=== PATIENT | male | born 1965 | race Caucasian/White ===

== ENCOUNTER 2025-01-16 05:49 | Inpatient (IN) | payer MEDICAID ==
[~2025-01-16] VITALS: Ht 170.2 cm; Wt 77.3 kg
[2025-01-16 06:00] VITALS: BP 127/83
[2025-01-16 06:32] LABS: Basophils # (auto) 0.1 10 ^3/uL (0-0.2); Basophils % (auto) 0.8 % (0.0-2.0); Eosinophils # (auto) 0.1 10 ^3/uL (0-0.8); Eosinophils % (auto) 1.7 % (0.0-7.0); Hematocrit 44.9 % (41.0-53.0); Hemoglobin 14.5 g/dL (13.5-17.5); Lymphocytes # (auto) 1.7 10 ^3/uL (0.4-5.4); Mean Corpuscular Hemoglobin 29.9 pg (28.0-32.0); Mean Corpuscular Hgb Conc. 32.4 g/dL (32.0-36.0); Mean Corpuscular Volume 92.3 fL (80.0-100.0); Monocytes # (auto) 0.5 10 ^3/uL (0-1.3); Monocytes % (auto) 5.9 % (0.0-12.0); Neutrophils # (auto) 5.9 10 ^3/uL (1.6-8.6); Neutrophils % (auto) 70.6 % (37.0-80.0); Nucleated Red Blood Cells % 0.1 %; Platelet Count (auto) 296 10^3/uL (140-450); Red Blood Cells 4.86 10^6/uL (4.5-5.90); Red Cell Distribution Width 15.7 % (11.8-14.3); White Blood Cell 8.3 10^3/uL (4.4-10.8)
--- NOTE | 2025-01-16 06:47 | ECG ---
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1965 Requested By: EMERGENCY EMERGENCY Order Number: [id number] Reading MD: Yasmany Ellington Measurements Intervals [place] Rate: 99 P: 83 PA: 165 QRS: -45 QRSD: 114 T: 74 QT: 381 QTc: 489 Interpretive Statements Sinus rhythm Biatrial enlargement Left anterior fascicular block Abnormal R-wave progression, late transition Left ventricular hypertrophy Borderline T abnormalities, lateral leads Anterior ST elevation, probably due to LVH Borderline prolonged QT interval Baseline wander in lead(s) V2 Electronically Signed On 01-18-2025 22:05:45 PST by Yasmany Ellington Please click the below link to view image of tracing.
[2025-01-16 06:53] LABS: Chloride 101 mmol/L (98-107); Potassium 3.8 mmol/L (3.5-5.1); Sodium 139 mmol/L (136-145)
[2025-01-16 06:54] VITALS: PULSE 104
[2025-01-16 06:54] LABS: Anion Gap 10 (5-15); Carbon Dioxide 28 mmol/L (20-31)
--- NOTE | 2025-01-16 06:55 | ECG ---
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
[2025-01-16 06:59] LABS: BUN/Creatinine Ratio 14.9 (10.0-20.0)
[2025-01-16 07:00] LABS: Blood Urea Nitrogen 28 mg/dL (9-23); Calcium 10.8 mg/dL (8.7-10.4); Glucose 130 mg/dL (74-106)
[2025-01-16] MEDS ORDERED: FUROSEMIDE 40 MG/4 ML VIAL IV ONE ×2 (07:15→07:45)
[2025-01-16] MEDS ORDERED: methylPREDNISolone SOD SUCC 125 MG/2 ML VL IV ONE (07:15)
[2025-01-16] MEDS ORDERED: ASPirin 325 MG TAB PO ONE (07:15)
--- NOTE | 2025-01-16 07:16 | ED.PDOC ---
SOB-HPI HPI Comments 59 year old male presents to the ED with chief complaint of SOB. Patient reports that he has been experiencing intermittent SOB for the past week, feeling like he is gasping for air at times before subsiding. Patient relays that he had a pacemaker placed about 8 months ago, but is not sure if it is working correctly now. Patient denies any chest pain, cough, dizziness, headache, fever, chills, or N/V/D. Chief Complaint: Shortness of Breath Time Seen by MD: 07:12 Primary Care Provider: DENIES Reviewed notes: Nurses Notes, Medications, Allergies Information Source: Patient Mode of Arrival: Ambulatory Severity: Moderate Timing: Weeks Duration: Since onset, Intermittent Context: At Rest PE Risk Factors: None History of: None Prehospital treatment: None Modifying Factors: Nothing Associated Signs and Symptoms: None Past Medical History Past Medical History (Other): Prediabetic Surgical History: Pacemaker Family History Family History: Reviewed,noncontributory to illness Social History Smoker: Quit Greater Than 1 Year, Cigarettes Alcohol: Denies ETOH Use Drugs: Denies Drug Use Lives In: Home Constitutional: denies: chills, diaphoresis, fatigue, fever, malaise, sweats, weakness, others EENTM: denies: blurred vision, double vision, ear bleeding, ear discharge, ear drainage, ear pain, ear ringing, eye pain, eye redness, hearing loss, mouth pain, mouth swelling, nasal discharge, nose bleeding, nose congestion, nose pain, photophobia, tearing, throat pain, throat swelling, voice changes, others Respiratory: reports: shortness of breath; denies: cough, hemoptysis, orthopnea, SOB at rest, SOB with excertion, stridor, wheezing, others Cardiovascular: denies: chest pain, dizzy spells, diaphoresis, Dyspnea on exertion, edema, irregular heart beat, left arm pain, lightheadedness, palpitations, PND, syncope, others Gastrointestinal: denies: abdomen distended, abdominal pain, blood streaked bowels, constipated, diarrhea, dysphagia, difficulty swallowing, hematemesis, melena, nausea, poor appetite, poor fluid intake, rectal bleeding, rectal pain, vomiting, others Genitourinary: denies: burning, dysuria, flank pain, frequency, hematuria, incontinence, penile discharge, penile sore, pain, testicle pain, testicle swel ling, urgency, others Neurological: denies: dizziness, fainting, headache, left sided numbness, left sided weakness, numbness, paresthesia, pre-existing deficit, right sided numbness, right sided weakness, seizure, speech problems, tingling, tremors, weakness, others Musculoskeletal: denies: back pain, gout, joint pain, joint swelling, muscle pain, muscle stiffness, neck pain, others Integumetry: denies: bruises, change in color, change in hair/nails, dryness, laceration, lesions, lumps, rash, wounds, others Allergic/Immunocompromised: denies: Difficulty Healing, Frequent Infections, Hives, Itching, others Hematologic/Lymphatic: denies: anemia, blood clots, easy bleeding, easy bruising, swollen glands, others Endocrine: denies: excessive hunger, excessive sweating, excessive thirst, excessive urination, flushing, intolerance to cold, intolerance to heat, unexplained weight gain, unexplained weight loss, others Psychiatric: denies: anxiety, bipolar disorder, depression, hopeless, panic disorder, schizophrenia, sleepless, suicidal, others All Other Systems: Reviewed and Negative Physical Exam General Appearance: Moderate Distress, Normal HEENT: Normal ENT Inspection, PERRL/EOMI Neck: Full Range of Motion, Non-Tender, Normal, Normal Inspection Respiratory: Chest Non-Tender, No Accessory Muscle Use, No Respiratory Distress, Other (Coarse breath sounds) Cardiovascular: No Edema, No JVD, No Murmur, No Gallop, Normal Peripheral Pulses, Regular Rate/Rhythm Breast Exam: Deferred Gastrointestinal: No Organomegaly, Non Tender, No Pulsatile Mass, Normal Bowel Sounds, Soft Genitalia: Deferred Pelvic: Deferred Rectal: Deferred Extremities: No calf tenderness, Normal capillary refill, Normal inspection, Normal range of motion, Non-tender, No pedal edema Musculoskeletal : Apperance: Normal Neurologic: Alert, 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 Was a procedure done?: No Differential Dx Differential Diagnosis: Anxiety, Asthma, Bronchitis, CHF, COPD X-Ray, Labs, Meds, VS Vital Signs Date Time Temp Pulse Resp B/P (MAP) Pulse Ox O2 Delivery O2 Flow Rate FiO2 01/16/25 07:24 94 Room Air* 0 21 01/16/25 07:24 18 94 Room Air* 0 21 01/16/25 06:54 104 01/16/25 06:00 100 Room Air* 0 21 01/16/25 06:00 97.7 102 16 127/83 (98) 100 01/16/25 06:00 99 Lab Test 01/16/25 06:50 01/16/25 06:06 Range/Units Troponin I High Sensitivity 63 *H 66 *H </=54 ng/L White Blood Count 8.3 4.4-10.8 10^3/uL Red Blood Count 4.86 4.5-5.90 10^6/uL Hemoglobin 14.5 13.5-17.5 g/dL Hematocrit 44.9 41.0-53.0 % Mean Corpuscular Volume 92.3 80.0-100.0 fL Mean Corpuscular Hemoglobin 29.9 28.0-32.0 pg Mean Corpuscular Hemoglobin Concent 32.4 32.0-36.0 g/dL Red Cell Distribution Width 15.7 H 11.8-14.3 % Platelet Count 296 140-450 10^3/uL Mean Platelet Volume 9.5 6.9-10.8 fL Neutrophils (%) (Auto) 70.6 37.0-80.0 % Lymphocytes (%) (Auto) 21.0 10.0-50.0 % Monocytes (%) (Auto) 5.9 0.0-12.0 % Eosinophils (%) (Auto) 1.7 0.0-7.0 % Basophils (%) (Auto) 0.8 0.0-2.0 % Neutrophils # (Auto) 5.9 1.6-8.6 10 ^3/uL Lymphocytes # (Auto) 1.7 0.4-5.4 10 ^3/uL Monocytes # (Auto) 0.5 0-1.3 10 ^3/uL Eosinophils # (Auto) 0.1 0-0.8 10 ^3/uL Basophils # (Auto) 0.1 0-0.2 10 ^3/uL Nucleated Red Blood Cells 0.1 % Sodium Level 139 136-145 mmol/L Potassium Level 3.8 3.5-5.1 mmol/L Chloride Level 101 98-107 mmol/L Carbon Dioxide Level 28 20-31 mmol/L Anion Gap 10 5-15 Blood Urea Nitrogen 28 H 9-23 mg/dL Creatinine 1.88 H 0.700-1.30 mg/dL Glomerular Filtration Rate Calc 41 >90 mL/min BUN/Creatinine Ratio 14.9 10.0-20.0 Serum Glucose 130 H 74-106 mg/dL Calcium Level 10.8 H 8.7-10.4 mg/dL B-Type Natriuretic Peptide 2946.49 0-100 pg/mL Current Medications Medications (Trade) Dose Ordered Sig/Silva Route Start Time Stop Time Status Last Admin Albuterol (Ventolin Medneb) 5 mg ONCE ONCE NEB 01/16/25 07:15 01/16/25 07:16 DC 01/16/25 07:24 Ipratropium [place] (Atrovent Medneb) 0.5 mg ONCE ONCE NEB 01/16/25 07:15 01/16/25 07:16 DC 01/16/25 07:24 Patient alert. Complaining of shortness a breath. Used to be heavy smoker. Saturation appropriate. EKG reviewed does show increased heart rate. Was given breathing treatment. BNP elevated. Was given Lasix. Kidney function elevated. Possible dehydration. Explained to the patient. Continue cardiac monitoring. Chest XR: FINDINGS: Lines and Tubes: Cardiac pacemaker projects over the left chest wall. Lungs: No focal consolidation. Pleura: No effusion. No pneumothorax. Cardiomediastinal contours: Unremarkable Bones: No acute osseous abnormality. IMPRESSION: No acute cardiopulmonary disease. Images Reviewed?: Images reviewed and evaluated by me Time of 1ST Reevaluation: 08:12 Reevaluation 1ST: Unchanged Patient Education/Counseling: Diagnosis, Treatment Family Education/Counseling: No Family Present Additional Information I reviewed the following notes from patient's past medical encounters: None The following tests were ordered, and results were reviewed by me: CBC, BMP, BNP, Troponin, EKG, CXR I reviewed and agreed with the following test results read by other providers: CXR Additional Information was gathered from interviewing the following independent historians: None I discussed treatment and results with medical personnel. Departure 1 Departure Time of Disposition: 07:39 Impression: Primary Impression: Diastolic heart failure Qualified Codes: I50.33 - Acute on chronic diastolic (congestive) heart failure Disposition: ADMITTED INPATIENT Admit to: Med Surg Condition: Guarded e-Prescriptions No Active Prescriptions or Reported Meds Critical Care Note Critical Care Time?: No Stability Stability form required: No Heart Score Heart Score: Heart Score Response (Comments) Value History Slightly Suspicious 0 EKG Normal 0 Age 45-64 1 Risk Factors 1 or 2 risk factors 1 Troponin Normal limit 0 Total 2 I personally scribed for LISA ADHIKARI MD ([email or web address]) on 01/16/25 at 07:16. Electronically submitted by Guy New ([email or web address]). I personally scribed for LISA ADHIKARI MD ([email or web address]) on 01/16/25 at 08:19. Electronically submitted by Guy New ([email or web address]). LISA ADHIKARI MD Jan 16, 2025 07:16
[2025-01-16 07:24] VITALS: RESP 18; O2SAT 94
[2025-01-16] MEDS: ALBUTEROL SULF 2.5 MG/0.5ML(0.5%) NEB SOLN NEB ONE (07:24)
[2025-01-16] MEDS: IPRATROPIUM BROM 0.5 MG/2.5ML INH SOL NEB ONE (07:24)
[2025-01-16] MEDS ORDERED: SODIUM CHLORIDE 0.9% 500 ML IV ONE (07:45)
--- NOTE | 2025-01-16 08:16 | DVH ---
EXAM: XY CHEST PORTABLE Indication: sob Technique: Single frontal view of the chest was obtained Comparison: None FINDINGS: Lines and Tubes: Cardiac pacemaker projects over the left chest wall. Lungs: No focal consolidation. Pleura: No effusion. No pneumothorax. Cardiomediastinal contours: Unremarkable Bones: No acute osseous abnormality. IMPRESSION: No acute cardiopulmonary disease.
[2025-01-16] MEDS ORDERED: DAPA1TAB4 PO (10:52)
[2025-01-16] MEDS ORDERED: ASPI1CHW5 PO (10:52)
[2025-01-16] MEDS ORDERED: CARV6.2551 PO (10:52)
[2025-01-16] MEDS ORDERED: FURO20TA4 PO (10:52)
[2025-01-16] MEDS ORDERED: DOCUSATE SOD 100 MG CAP PO PRN (11:00)
[2025-01-16] MEDS ORDERED: ACETAMINOPHEN 325 MG TAB PO PRN (11:00)
[2025-01-16] MEDS ORDERED: MORPHINE SULFATE INJ 2 MG/ml SYRG IV PRN (11:00)
[2025-01-16] MEDS ORDERED: ONDANSETRON HCL 4 MG/2 ML VIAL IV PRN (11:00)
[2025-01-16] MEDS ORDERED: NITROGLYCERIN 0.4 MG SL TAB SL PRN (11:00)
[2025-01-16] MEDS ORDERED: HYDROcodone-ACET 5/325MG TAB PO PRN (11:00)
--- NOTE | 2025-01-16 11:11 | DVHHP2 ---
History of Present Illness Reason for Visit: Shortness of breath History of Present Illness Gordon Mancia is a 59-year-old male with past medical history of CHF, chronic renal insufficiency, and illicit drug use, who comes to the ER today for shortness of breath. Patient states he had his pacemaker placed May of 2023, and that everything was better after that for about the first year. Then he states he started having problems with swelling of his lower extremities, and now shortness of breath more frequently. He states he was started on a diuretic, and it worked at first, then they changed the dose, and it was working better, but the last couple of weeks he hasn't noticed it working very well. Patient states he quite smoking tobacco about 2 years ago, but that he still smokes marijuana and uses methamphetamines. Cardiovascular: CHF Renal/: Chronic renal insuff Past Surgical History: None Family History: None Smoke: Quit (2 years ago) ALCOHOL: rare Drugs: Marijuana, Other (methamphetamines) Lives: with Family Domestic Violence: Neg Review of Systems Constitutional: No: Fever, Chills, Sweats, Weakness, Malaise, Other Eyes: No: Pain, Vision change, Conjunctivae inflammation, Eyelid inflammation, Other, Redness ENT: No: Ear pain, Ear discharge, Nose pain, Nose discharge, Nose congestion, Mouth pain, Mouth swelling, Throat pain, Throat swelling, Other Respiratory: Shortness of breath, SOB with excertion, Wheezing; No: Cough, Dry, Hemoptysis, Pleuritic Pain, Sputum, Wheezing, Other Cardiovascular: No: Chest Pain, Palpitations, Orthopnea, Paroxysmal Noc. Dyspnea, Edema, Lt Headedness, Other Gastrointestinal: No: Nausea, Vomiting, Abdominal Pain, Diarrhea, Constipation, Melena, Hematochezia, Other Genitourinary: No Dysuria, No Frequency, No Incontinence, No Hematuria, No Retention, No Other Musculoskeletal: No: other, neck pain, shoulder pain, arm pain, back pain, hand pain, leg pain, foot pain Skin: No: Rash, Lesions, Jaundice, Bruising, Other Neurological: No: Weakness, Numbness, Incoordination, Change in speech, Confusion, Seizures, Other Allergies: Coded Allergies: NO KNOWN ALLERGIES (Unverified , 06/15/15) Medications Current Medications Medications Dose Ordered Sig/Silva Route Start Time Stop Time Status Last Admin Dose Admin Sodium Chloride 10 ml Q8HR IV 01/16/25 14:00 UNV Acetaminophen/ Hydrocodone Bitart 1 tab Q4HP PRN PO 01/16/25 11:00 UNV Ondansetron HCl 4 mg Q4HP PRN IV 01/16/25 11:00 UNV Docusate Sodium 100 mg BIDPRN PRN PO 01/16/25 11:00 UNV Acetaminophen 650 mg Q6HP PRN PO 01/16/25 11:00 UNV Nitroglycerin 0.4 mg Q5MINP PRN SL 01/16/25 11:00 UNV Morphine Sulfate 2 mg Q30M PRN IV 01/16/25 11:00 UNV Furosemide 20 mg BIDD IV 01/16/25 18:00 UNV Patient Own Medication 1 tab DAILY PO 01/17/25 10:00 UNV Patient Own Medication 1 tab BID PO 01/16/25 22:00 UNV Patient Own Medication 1 tab DAILY PO 01/17/25 10:00 UNV Exam Vital Signs Vital Signs Date Time Temp Pulse Resp B/P (MAP) Pulse Ox O2 Delivery O2 Flow Rate FiO2 01/16/25 07:24 94 Room Air* 0 21 01/16/25 07:24 18 01/16/25 06:54 104 01/16/25 06:00 97.7 127/83 (98) General Appearance: Alert, Oriented X3, Cooperative, mild distress HEENT: Atraumatic, PERRLA Respiratory: Clear to auscultation, Normal air movement Cardiovascular: Regular rate, Normal S1, Normal S2, No murmurs Abdominal: Normal bowel sounds, Soft, No tenderness, No hepatospenomegaly Extremities: No clubbing, No cyanosis, Normal pulses, Other (Bilateral LE edema) Skin: No rashes, No breakdown, No significant lesion Neuro: Normal gait, Normal speech, Strength at 5/5 X4 ext Psych/Mental Status: Mental status NL, Mood NL Labs/Xrays Labs Test 01/16/25 09:01 01/16/25 06:06 Range/Units Troponin I High Sensitivity 53 </=54 ng/L White Blood Count 8.3 4.4-10.8 10^3/uL Red Blood Count 4.86 4.5-5.90 10^6/uL Hemoglobin 14.5 13.5-17.5 g/dL Hematocrit 44.9 41.0-53.0 % Mean Corpuscular Volume 92.3 80.0-100.0 fL Mean Corpuscular Hemoglobin 29.9 28.0-32.0 pg Mean Corpuscular Hemoglobin Concent 32.4 32.0-36.0 g/dL Red Cell Distribution Width 15.7 H 11.8-14.3 % Platelet Count 296 140-450 10^3/uL Mean Platelet Volume 9.5 6.9-10.8 fL Neutrophils (%) (Auto) 70.6 37.0-80.0 % Lymphocytes (%) (Auto) 21.0 10.0-50.0 % Monocytes (%) (Auto) 5.9 0.0-12.0 % Eosinophils (%) (Auto) 1.7 0.0-7.0 % Basophils (%) (Auto) 0.8 0.0-2.0 % Neutrophils # (Auto) 5.9 1.6-8.6 10 ^3/uL Lymphocytes # (Auto) 1.7 0.4-5.4 10 ^3/uL Monocytes # (Auto) 0.5 0-1.3 10 ^3/uL Eosinophils # (Auto) 0.1 0-0.8 10 ^3/uL Basophils # (Auto) 0.1 0-0.2 10 ^3/uL Nucleated Red Blood Cells 0.1 % Sodium Level 139 136-145 mmol/L Potassium Level 3.8 3.5-5.1 mmol/L Chloride Level 101 98-107 mmol/L Carbon Dioxide Level 28 20-31 mmol/L Anion Gap 10 5-15 Blood Urea Nitrogen 28 H 9-23 mg/dL Creatinine 1.88 H 0.700-1.30 mg/dL Glomerular Filtration Rate Calc 41 >90 mL/min BUN/Creatinine Ratio 14.9 10.0-20.0 Serum Glucose 130 H 74-106 mg/dL Calcium Level 10.8 H 8.7-10.4 mg/dL B-Type Natriuretic Peptide 2946.49 0-100 pg/mL EXAM: XY CHEST PORTABLE FINDINGS: Lines and Tubes: Cardiac pacemaker projects over the left chest wall. Lungs: No focal consolidation. Pleura: No effusion. No pneumothorax. Cardiomediastinal contours: Unremarkable Bones: No acute osseous abnormality. IMPRESSION: No acute cardiopulmonary disease. 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 Procedure Category Date Status Time Admit ADMIT 01/16/25 Transmitted 10:48 Code Status CODE 01/16/25 Transmitted 10:48 Sodium Chloride Lock PHA 01/16/25 Logged (Saline Lock Ns) 14:00 Hydrocodone-Acet PHA 01/16/25 Logged 5/325mg Tab ([place] 11:00 Ondansetron Hcl PHA 01/16/25 Logged (Zofran) 11:00 Docusate Sodium PHA 01/16/25 Logged Capsule (Colace 11:00 Complete Blood Count LAB 01/17/25 Verified 04:00 Comprehensive LAB 01/17/25 Verified Metabolic Panel 04:00 Cardiac DIET 01/16/25 Transmitted Diet-2gna,Lofat,Lochol Lunch Condition: Serious LEO 01/16/25 In Process 10:48 Acetaminophen Tablet PHA 01/16/25 Logged (Tylenol Tablet) 11:00 Nitroglycerin PHA 01/16/25 Logged Sublingual (Ntrostat 11:00 Morphine Sulfate PHA 01/16/25 Logged Injection 11:00 Stat Ekg For Chest LEO 01/16/25 In Process Pain 10:48 Notify Md Of Changes LEO 01/16/25 In Process From Base 10:48 It Generalist For [facility] 01/16/25 In Process 24 Hours 10:48 Emergency Dysrhythmia LEO 01/16/25 In Process Protocol 10:48 Rhythm Strips Once LEO 01/16/25 In Process Every Shift 10:48 Oxygen By Nasal RT 01/16/25 Transmitted Cannula 10:48 * Cardiology Consult CONS 01/16/25 Transmitted 10:48 Furosemide Injection PHA 01/16/25 Logged (Lasix Injection) 18:00 Potassium LAB 01/16/25 Logged 16:00 Magnesium LAB 01/16/25 Logged 16:00 (Nf) Aspirin PHA 01/17/25 Logged (Chewable Aspirin) 10:00 (Nf) Carvedilol PHA 01/16/25 Logged 22:00 (Nf) Dapagliflozin PHA 01/17/25 Logged Propanediol (Farxiga) 10:00 Date of Service: Jan 16, 2025 Billing Provider: YURI VAQSUEZ Common Visit Codes: [id number] INP/OBS CARE (MOD) YURI VASQUEZ Jan 16, 2025 11:11
[2025-01-16] MEDS ORDERED: SODIUM CHLOR 0.9% PF (SALINE LOCK) 10ML VIAL/SYR IV SCH (14:00)
[2025-01-16] MEDS ORDERED: FUROSEMIDE 20 MG/2 ML VIAL IV SCH (18:00)
[2025-01-16] MEDS ORDERED: CARVEDILOL 3.125 MG TAB PO SCH (18:00)
--- NOTE | 2025-01-16 21:24 | DVHINCON2 ---
Date of service: Jan 16, 2025 Referring Physician Jovanni Reason for Consultation Diastolic heart failure History of Present Illness This is a 59 year old male with a PMH of CHF, chronic renal insufficiency, and illicit drug use who presented to the ED with complaints of SOB. Patient reports that he has been experiencing intermittent SOB for the past week, feeling like he is gasping for air at times before subsiding. Patient states he had his pacemaker placed May of 2023, and that everything was better after that for about the first year. Then he states he started having problems with swelling of his lower extremities, and now shortness of breath more frequently. He states he was started on a diuretic, and it worked at first, then they changed the dose, and it was working better, but the last couple of weeks he hasn't noticed it working very well. Patient states he quite smoking tobacco about 2 years ago, but that he still smokes marijuana and uses methamphetamines. Chest x-ray shows NAD. Troponin 66 > 63 > 53.BUN 28, Autism Teacher 1.88,BNP 2946.49. Patient was admitted to the hospital. I am asked to consult on this patient. Family History: Patient reports no known family medical history. Allergies: Coded Allergies: NO KNOWN ALLERGIES (Unverified , 06/15/15) Home Meds Reported Medications Furosemide (Furosemide) 20 Mg Tab, 1 TAB PO DAILY 01/16/25 Dapagliflozin Propanediol (Farxiga) 10 Mg Tab, 1 TAB PO DAILY 01/16/25 Aspirin (Chewable Aspirin) 81 Mg Chw, 1 TAB PO DAILY 01/16/25 Carvedilol (Carvedilol) 6.25 Mg Tab, 1 TAB PO BID 01/16/25 Current Medications Current Medications Medications (Trade) Dose Ordered Sig/Silva Route PRN Reason Start Time Stop Time Status Last Admin Sodium Chloride (Saline Lock Ns) 10 ml Q8HR IV 01/16/25 14:00 Acetaminophen/ Hydrocodone Bitart ([place] 5/325MG Tab) 1 tab Q4HP PRN PO MODERATE PAIN (4-6 PAIN SCALE) 01/16/25 11:00 Ondansetron HCl (Zofran) 4 mg Q4HP PRN IV NAUSEA / VOMITING 01/16/25 11:00 Docusate Sodium (Colace Capsule) 100 mg BIDPRN PRN PO FOR CONSTIPATION 01/16/25 11:00 Acetaminophen (Tylenol Tablet) 650 mg Q6HP PRN PO PAIN SCALE 1-3 OR TEMP>100.4 01/16/25 11:00 Nitroglycerin (Ntrostat Sublingual) 0.4 mg Q5MINP PRN SL FOR CHEST PAIN 01/16/25 11:00 Morphine Sulfate 2 mg Q30M PRN IV FOR CHEST PAIN 01/16/25 11:00 Furosemide (Lasix Injection) 20 mg BIDD IV 01/16/25 18:00 Patient Own Medication 1 tab DAILY PO 01/17/25 10:00 UNV Patient Own Medication 1 tab BID PO 01/16/25 22:00 UNV Patient Own Medication 1 tab DAILY PO 01/17/25 10:00 Aspirin 81 mg DAILY PO 01/17/25 10:00 Carvedilol (Coreg Tablet) 6.25 mg BIDWM PO 01/16/25 18:00 Review of Systems Constitutional: No: Fever, Chills, Sweats, Weakness, Malaise, Other Eyes: No: Pain, Vision change, Conjunctivae inflammation, Eyelid inflammation, Other, Redness ENT: No: Ear pain, Ear discharge, Nose pain, Nose discharge, Nose congestion, Mouth pain, Mouth swelling, Throat pain, Throat swelling, Other Respiratory: Shortness of breath, SOB with excertion, Wheezing; No: Cough, Dry, Hemoptysis, Pleuritic Pain, Sputum, Wheezing, Other Cardiovascular: No: Chest Pain, Palpitations, Orthopnea, Paroxysmal Noc. Dyspnea, Edema, Lt Headedness, Other Gastrointestinal: No: Nausea, Vomiting, Abdominal Pain, Diarrhea, Constipation, Melena, Hematochezia, Other Genitourinary: No Dysuria, No Frequency, No Incontinence, No Hematuria, No Retention, No Other Musculoskeletal: No: other, neck pain, shoulder pain, arm pain, back pain, hand pain, leg pain, foot pain Skin: No: Rash, Lesions, Jaundice, Bruising, Other Neurological: No: Weakness, Numbness, Incoordination, Change in speech, Confusion, Seizures, Other Vital Signs Vital Signs Date Time Temp Pulse Resp B/P (MAP) Pulse Ox O2 Delivery O2 Flow Rate FiO2 01/16/25 07:24 94 Room Air* 0 21 01/16/25 07:24 18 01/16/25 06:54 104 01/16/25 06:00 97.7 127/83 (98) Physical Exam GENERAL: Awake, alert, oriented. LUNGS: Clear. CARDIOVASCULAR: Heart sounds are good. ABDOMEN: Soft. EXT: BLE edema. Labs/Diagnostic Data Labs Test 01/16/25 09:01 01/16/25 06:06 Range/Units Troponin I High Sensitivity 53 </=54 ng/L White Blood Count 8.3 4.4-10.8 10^3/uL Red Blood Count 4.86 4.5-5.90 10^6/uL Hemoglobin 14.5 13.5-17.5 g/dL Hematocrit 44.9 41.0-53.0 % Mean Corpuscular Volume 92.3 80.0-100.0 fL Mean Corpuscular Hemoglobin 29.9 28.0-32.0 pg Mean Corpuscular Hemoglobin Concent 32.4 32.0-36.0 g/dL Red Cell Distribution Width 15.7 H 11.8-14.3 % Platelet Count 296 140-450 10^3/uL Mean Platelet Volume 9.5 6.9-10.8 fL Neutrophils (%) (Auto) 70.6 37.0-80.0 % Lymphocytes (%) (Auto) 21.0 10.0-50.0 % Monocytes (%) (Auto) 5.9 0.0-12.0 % Eosinophils (%) (Auto) 1.7 0.0-7.0 % Basophils (%) (Auto) 0.8 0.0-2.0 % Neutrophils # (Auto) 5.9 1.6-8.6 10 ^3/uL Lymphocytes # (Auto) 1.7 0.4-5.4 10 ^3/uL Monocytes # (Auto) 0.5 0-1.3 10 ^3/uL Eosinophils # (Auto) 0.1 0-0.8 10 ^3/uL Basophils # (Auto) 0.1 0-0.2 10 ^3/uL Nucleated Red Blood Cells 0.1 % Sodium Level 139 136-145 mmol/L Potassium Level 3.8 3.5-5.1 mmol/L Chloride Level 101 98-107 mmol/L Carbon Dioxide Level 28 20-31 mmol/L Anion Gap 10 5-15 Blood Urea Nitrogen 28 H 9-23 mg/dL Creatinine 1.88 H 0.700-1.30 mg/dL Glomerular Filtration Rate Calc 41 >90 mL/min BUN/Creatinine Ratio 14.9 10.0-20.0 Serum Glucose 130 H 74-106 mg/dL Calcium Level 10.8 H 8.7-10.4 mg/dL B-Type Natriuretic Peptide 2946.49 0-100 pg/mL Assessment Diastolic heart failure. Fluid overload. Elevated BNP. Acute on chronic kidney injury. Plan/Recommendation I agree with your ongoing assessment and care of plan. Morphine and [place] for pain management. Aspirin. Coreg. Diuretics with Lasix. Nitro SL. Additional plan as per the hospital course. A total of 45 minutes was spent reviewing the patient record, examining the patient, making a diagnostic and therapeutic plan, discussing this plan with medical personnel, following up on diagnostic studies and following the patient for clinical stability excluding any and all procedures. At least 50% of this time was spent in direct, [id number] contact. Plan discussed with: Patient MIRIAM BAXTER MD Jan 16, 2025 21:24
[2025-01-16] MEDS ORDERED: PATIENTS OWN MEDICATION (Carvedilol 1 TAB) PO SCH (22:00)
[2025-01-17] MEDS ORDERED: ASPirin 81 mg TAB PO SCH (10:00)
[2025-01-17] MEDS ORDERED: PATIENTS OWN MEDICATION (Aspirin (Chewable Aspirin) 1 TAB) PO SCH (10:00)
--- NOTE | 2025-01-17 13:49 | DVHDS2 ---
Discharge Summary Date of Admission Jan 16, 2025 at 10:48 Date of Discharge: Jan 17, 2025 Labs/Diagnostic Data: Laboratory Results Test 01/16/25 09:01 01/16/25 06:06 Troponin I High Sensitivity 53 ng/L (</=54) White Blood Count 8.3 10^3/uL (4.4-10.8) Red Blood Count 4.86 10^6/uL (4.5-5.90) Hemoglobin 14.5 g/dL (13.5-17.5) Hematocrit 44.9 % (41.0-53.0) Mean Corpuscular Volume 92.3 fL (80.0-100.0) Mean Corpuscular Hemoglobin 29.9 pg (28.0-32.0) Mean Corpuscular Hemoglobin Concent 32.4 g/dL (32.0-36.0) Red Cell Distribution Width 15.7 % (11.8-14.3) Platelet Count 296 10^3/uL (140-450) Mean Platelet Volume 9.5 fL (6.9-10.8) Neutrophils (%) (Auto) 70.6 % (37.0-80.0) Lymphocytes (%) (Auto) 21.0 % (10.0-50.0) Monocytes (%) (Auto) 5.9 % (0.0-12.0) Eosinophils (%) (Auto) 1.7 % (0.0-7.0) Basophils (%) (Auto) 0.8 % (0.0-2.0) Neutrophils # (Auto) 5.9 10 ^3/uL (1.6-8.6) Lymphocytes # (Auto) 1.7 10 ^3/uL (0.4-5.4) Monocytes # (Auto) 0.5 10 ^3/uL (0-1.3) Eosinophils # (Auto) 0.1 10 ^3/uL (0-0.8) Basophils # (Auto) 0.1 10 ^3/uL (0-0.2) Nucleated Red Blood Cells 0.1 % Sodium Level 139 mmol/L (136-145) Potassium Level 3.8 mmol/L (3.5-5.1) Chloride Level 101 mmol/L (98-107) Carbon Dioxide Level 28 mmol/L (20-31) Anion Gap 10 (5-15) Blood Urea Nitrogen 28 mg/dL (9-23) Creatinine 1.88 mg/dL (0.700-1.30) Glomerular Filtration Rate Calc 41 mL/min (>90) BUN/Creatinine Ratio 14.9 (10.0-20.0) Serum Glucose 130 mg/dL (74-106) Calcium Level 10.8 mg/dL (8.7-10.4) B-Type Natriuretic Peptide 2946.49 pg/mL (0-100) Other Laboratory Tests 01/16/25 06:06 Brief Hx & Hospital Course: Final diagnoses: Diastolic heart failure 59-year-old male who was admitted for shortness of breaths I came to see the patient in the emergency room, he is not there, we looked for him in the lobby, patient is not here, looks like he eloped. Condition at Discharge: Undetermined Final Diagnosis/Problems List Diastolic heart failure Discharge Disposition: Eloped SNF Discharge Will this Physician continue t: No Discharge Statement: "Patient was advised to return to the ER or call 911 if any headaches, dizziness, shortness of breath, chest pain, abdominal pain, bleeding, fevers, or worsening of medical condition. Patient was counseled about treatment plan, medications, possible side effects, patientverbalized understanding. All questions were answered to the best of my ability. This discharge took greater then 30 minutes in planning, reviewing documentation, counseling the patient, and discussing with other team members." ASSESSMENT ASSESSMENT Assessment Date of Service: Jan 17, 2025 Billing Provider: GIANFRANCO ALFARO MD Common Visit Codes: NOT BILLABLE GIANFRANCO ALFARO MD Jan 17, 2025 13:49
== END 2025-01-17 13:55 | disposition left against medical advice (07) | DRG 194 ==
LOC: ER 05:49 → OVERFLOW 10:48
PROVIDERS: ADMIT Internal Medicine Geriatric Medicine; ATTEND Internal Medicine Geriatric Medicine
DX: I50.31 Acute diastolic (congestive) heart failure (principal); N18.9 Chronic kidney disease, unspecified; Z79.899 Other long term (current) drug therapy
CPT/HCPCS: 36415; 71045; 80048; 83880; 84484; 85025; 93005; 94640; G0378

== ENCOUNTER 2025-02-06 20:31 | Inpatient (IN) | payer MEDICAID ==
[~2025-02-06] VITALS: Ht 170.2 cm; Wt 77.8 kg
[~2025-02-06 20:31] MED LIST: ASPI1CHW5 PO; CARV6.2551 PO; DAPA1TAB4 PO; FURO20TA4 PO
--- NOTE | 2025-02-06 20:47 | ED.PDOC ---
SOB-HPI HPI Comments 59 year old male presents to the ED with chief complaint of SOB. Patient reports that he has been experiencing SOB since last night. Patient relays that he has SOB while resting and his current symptoms are similar to how he felt before his pacemaker was placed. Patient states he is currently taking Lasix and 81mg of ASA daily. Patient notes that his pacemaker was placed on 12/05/23 and he has a teletype operator appointment on 02/15/25. Patient denies any chest pain, headache, dizziness, numbness, weakness, cough, dizziness, fever, or chills. Time Seen by MD: 20:44 Primary Care Provider: DESHAWN Reviewed notes: Nurses Notes, Medications, Allergies Information Source: Patient Mode of Arrival: Ambulatory Severity: Moderate Timing: Days Duration: Since onset Context: At Rest PE Risk Factors: None History of: CHF Prehospital treatment: None Modifying Factors: Nothing Past Medical History PAST MEDICAL HISTORY: CHF, CKF Surgical History: Pacemaker Family History Family History: Reviewed,noncontributory to illness Social History Smoker: Quit Greater Than 1 Year, Cigarettes Alcohol: Denies ETOH Use Drugs: Marijuana Lives In: Home Constitutional: denies: chills, diaphoresis, fatigue, fever, malaise, sweats, weakness, others EENTM: denies: blurred vision, double vision, ear bleeding, ear discharge, ear drainage, ear pain, ear ringing, eye pain, eye redness, hearing loss, mouth pain, mouth swelling, nasal discharge, nose bleeding, nose congestion, nose pain, photophobia, tearing, throat pain, throat swelling, voice changes, others Respiratory: reports: SOB at rest, shortness of breath; denies: cough, hemoptysis, orthopnea, SOB with excertion, stridor, wheezing, others Cardiovascular: denies: chest pain, dizzy spells, diaphoresis, Dyspnea on exertion, edema, irregular heart beat, left arm pain, lightheadedness, palpitations, PND, syncope, others Gastrointestinal: denies: abdomen distended, abdominal pain, blood streaked bowels, constipated, diarrhea, dysphagia, difficulty swallowing, hematemesis, melena, nausea, poor appetite, poor fluid intake, rectal bleeding, rectal pain, vomiting, others Genitourinary: denies: burning, dysuria, flank pain, frequency, hematuria, incontinence, penile discharge, penile sore, pain, testicle pain, testicle swelling, urgency, others Neurological: denies: dizziness, fainting, headache, left sided numbness, left sided weakness, numbness, paresthesia, pre-existing deficit, right sided numbness, right sided weakness, seizure, speech problems, tingling, tremors, weakness, others Musculoskeletal: denies: back pain, gout, joint pain, joint swelling, muscle pain, muscle stiffness, neck pain, others Integumetry: denies: bruises, change in color, change in hair/nails, dryness, laceration, lesions, lumps, rash, wounds, others Allergic/Immunocompromised: denies: Difficulty Healing, Frequent Infections, Hives, Itching, others Hematologic/Lymphatic: denies: anemia, blood clots, easy bleeding, easy bruising, swollen glands, others Endocrine: denies: excessive hunger, excessive sweating, excessive thirst, excessive urination, flushing, intolerance to cold, intolerance to heat, unexplained weight gain, unexplained weight loss, others Psychiatric: denies: anxiety, bipolar disorder, depression, hopeless, panic disorder, schizophrenia, sleepless, suicidal, others All Other Systems: Reviewed and Negative Physical Exam General Appearance: No Apparent Distress, Normal HEENT: Normal ENT Inspection, Pharynx Normal, TMs Normal Neck: Full Range of Motion, Non-Tender, Normal, Normal Inspection Respiratory: Chest Non-Tender, Lungs Clear, No Accessory Muscle Use, No Respiratory Distress, Normal Breath Sounds Cardiovascular: Bradycardia, No Edema, No JVD, No Murmur, No Gallop, Normal Peripheral Pulses Breast Exam: Deferred Gastrointestinal: No Organomegaly, Non Tender, No Pulsatile Mass, Normal Bowel Sounds, Soft Genitalia: Deferred Pelvic: Deferred Rectal: Deferred Extremities: No calf tenderness, Normal capillary refill, Normal inspection, Normal range of motion, Non-tender, No pedal edema Musculoskeletal : Apperance: Normal Neurologic: Alert, 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 Was a procedure done?: No Differential Dx Differential Diagnosis: Anxiety, Asthma, CHF, Myocardial infarction, Panic Attack, Pneumonia, Pulmonary Embolism, Respiratory Distress X-Ray, Labs, Meds, VS Vital Signs Date Time Temp Pulse Resp B/P (MAP) Pulse Ox O2 Delivery O2 Flow Rate FiO2 02/06/25 20:53 106 02/06/25 20:36 97.5 54 24 138/86 (103) 94 Lab Test 02/06/25 21:45 02/06/25 21:00 Range/Units Troponin I High Sensitivity 51 49 </=54 ng/L White Blood Count 8.3 4.4-10.8 10^3/uL Red Blood Count 4.87 4.5-5.90 10^6/uL Hemoglobin 14.9 13.5-17.5 g/dL Hematocrit 45.6 41.0-53.0 % Mean Corpuscular Volume 93.6 80.0-100.0 fL Mean Corpuscular Hemoglobin 30.6 28.0-32.0 pg Mean Corpuscular Hemoglobin Concent 32.7 32.0-36.0 g/dL Red Cell Distribution Width 16.1 H 11.8-14.3 % Platelet Count 370 140-450 10^3/uL Mean Platelet Volume 8.8 6.9-10.8 fL Neutrophils (%) (Auto) 64.0 37.0-80.0 % Lymphocytes (%) (Auto) 26.5 10.0-50.0 % Monocytes (%) (Auto) 5.9 0.0-12.0 % Eosinophils (%) (Auto) 2.7 0.0-7.0 % Basophils (%) (Auto) 0.9 0.0-2.0 % Neutrophils # (Auto) 5.3 1.6-8.6 10 ^3/uL Lymphocytes # (Auto) 2.2 0.4-5.4 10 ^3/uL Monocytes # (Auto) 0.5 0-1.3 10 ^3/uL Eosinophils # (Auto) 0.2 0-0.8 10 ^3/uL Basophils # (Auto) 0.1 0-0.2 10 ^3/uL Nucleated Red Blood Cells 0.1 % Prothrombin Time 11.4 9.3-11.8 sec Prothrombin Time INR 1.08 0.9-1.15 Sodium Level 138 136-145 mmol/L Potassium Level 4.7 3.5-5.1 mmol/L Chloride Level 105 98-107 mmol/L Carbon Dioxide Level 26 20-31 mmol/L Anion Gap 7 5-15 Blood Urea Nitrogen 28 H 9-23 mg/dL Creatinine 1.80 H 0.700-1.30 mg/dL Glomerular Filtration Rate Calc 43 >90 mL/min BUN/Creatinine Ratio 15.6 10.0-20.0 Serum Glucose 134 H 74-106 mg/dL Calcium Level 10.8 H 8.7-10.4 mg/dL Total Bilirubin 0.8 0.2-1.0 mg/dL Aspartate Amino Transferase (AST) 39 13-40 U/L Alanine Aminotransferase (ALT) 23 7-40 U/L Alkaline Phosphatase 66 46-116 U/L B-Type Natriuretic Peptide 2506.88 0-100 pg/mL Total Protein 7.4 5.7-8.2 g/dL Albumin 4.6 3.2-4.8 g/dL Chest XR: FINDINGS: Lines and Tubes: AICD noted overlying left chest wall. Lungs: Clear Pleura: No effusion.No pneumothorax. Cardiomediastinal contours: Mild cardiomegaly. Bones: Unremarkable IMPRESSION: No abnormality demonstrated. X-Ray, Labs, Meds, VS Comment PATIENT WILL BE ADMITTED FOR CHF EXACERBATION , SHORTNESS A BREATH, INCREASING TROPONINS PATIENT WILL BE GIVEN 40 OF LASIX IV RECOMMEND CARDIOLOGY CONSULT IN THE MORNING Time of 1ST Reevaluation: 21:44 Reevaluation 1ST: Unchanged Patient Education/Counseling: Diagnosis, Treatment Family Education/Counseling: No Family Present Departure 1 Departure Time of Disposition: 22:41 Impression: Primary Impression: Diastolic heart failure Qualified Codes: I50.32 - Chronic diastolic (congestive) heart failure Additional Impressions: CHF exacerbation Qualified Codes: I50.33 - Acute on chronic diastolic (congestive) heart failure ACS (acute coronary syndrome) Disposition: 09 ADMITTED INPATIENT Condition: Stable Discharged With: Self Critical Care Note Critical Care Time?: No Stability Stability form required: No Heart Score Heart Score: Heart Score Response (Comments) Value History Moderate Suspicious 1 EKG Normal 0 Age 45-64 1 Risk Factors >3 or Hx ASHD 2 Troponin 1-2 x's Normal limit 1 Total 5 I personally scribed for ANGELINA MICHELLE ([email or web address]) on 02/06/25 at 20:47. Electronically submitted by Guy New ([email or web address]). I personally scribed for ANGELINA MICHELLE ([email or web address]) on 02/06/25 at 21:44. Electronically submitted by Guy New ([email or web address]). ANGELINA MICHELLE Feb 06, 2025 20:47
[2025-02-06 21:12] LABS: Basophils # (auto) 0.1 10 ^3/uL (0-0.2); Basophils % (auto) 0.9 % (0.0-2.0); Eosinophils # (auto) 0.2 10 ^3/uL (0-0.8); Eosinophils % (auto) 2.7 % (0.0-7.0); Hematocrit 45.6 % (41.0-53.0); Hemoglobin 14.9 g/dL (13.5-17.5); Lymphocytes # (auto) 2.2 10 ^3/uL (0.4-5.4); Lymphocytes % (auto) 26.5 % (10.0-50.0); Mean Corpuscular Hemoglobin 30.6 pg (28.0-32.0); Mean Corpuscular Hgb Conc. 32.7 g/dL (32.0-36.0); Mean Corpuscular Volume 93.6 fL (80.0-100.0); Monocytes # (auto) 0.5 10 ^3/uL (0-1.3); Monocytes % (auto) 5.9 % (0.0-12.0); Neutrophils # (auto) 5.3 10 ^3/uL (1.6-8.6); Nucleated Red Blood Cells % 0.1 %; Platelet Count (auto) 370 10^3/uL (140-450); Red Blood Cells 4.87 10^6/uL (4.5-5.90); Red Cell Distribution Width 16.1 % (11.8-14.3); White Blood Cell 8.3 10^3/uL (4.4-10.8)
--- NOTE | 2025-02-06 21:20 | DVH ---
CHEST RADIOGRAPH Indication: sob Technique: Single frontal view of the chest was obtained COMPARISON: XY CHEST PORTABLE on DOS: 01/16/25 FINDINGS: Lines and Tubes: AICD noted overlying left chest wall. Lungs: Clear Pleura: No effusion.No pneumothorax. Cardiomediastinal contours: Mild cardiomegaly. Bones: Unremarkable IMPRESSION: No abnormality demonstrated.
[2025-02-06 21:28] LABS: INR 1.08 (0.9-1.15); Prothrombin Time 11.4 sec (9.3-11.8)
[2025-02-06 21:33] LABS: Alanine Aminotransferase 23 U/L (7-40); Albumin 4.6 g/dL (3.2-4.8); Alkaline Phosphatase 66 U/L (46-116); Anion Gap 7 (5-15); Aspartate Aminotransferase 39 U/L (13-40); BUN/Creatinine Ratio 15.6 (10.0-20.0); Bilirubin, Total 0.8 mg/dL (0.2-1.0); Carbon Dioxide 26 mmol/L (20-31); Chloride 105 mmol/L (98-107); Potassium 4.7 mmol/L (3.5-5.1); Sodium 138 mmol/L (136-145); Total Protein 7.4 g/dL (5.7-8.2)
[2025-02-06 21:34] LABS: Blood Urea Nitrogen 28 mg/dL (9-23); Calcium 10.8 mg/dL (8.7-10.4); Glucose 134 mg/dL (74-106)
[2025-02-06] MEDS ORDERED: NITROGLYCERIN 0.4 MG SL TAB SL PRN (23:45)
[2025-02-06] MEDS ORDERED: MORPHINE SULFATE INJ 2 MG/ml SYRG IV PRN (23:45)
--- NOTE | 2025-02-06 23:46 | DVHHPRES ---
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 Patient has shortness of bed function class 3 since 1 week which has progressively worsened, associated with chest discomfort and tiredness. He is seen by Dr. Wise at office, and has put ICD in May, band has not p erformed labor conciliator. And was also admitted on January 26, 2025 with same symptoms but the patient eloped after 1 day. 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 Home medication: Aspirin 81 mg, Lasix 20 mg, carvedilol 6.25 mg, dapagliflozin 10 mg, per patient Entresto was stopped on October 2024 due to low BP Allergic history: No known allergies Review of Systems Review of Systems General: Patient reports fatigue and tiredness HEENT: No headaches, visiual changes, hearing loss, tinnitus, nasal congestion and discharge, and sore throat. Cardiovascular: Reports chest discomfort Respiratory: Reports shortness of breath Gastrointestinal: Denies nausea, vomiting, dysphagia, odynophagia, heartburn, abdominal pain, flatulence, bloating, diarrhea, constipation, change in stool, or blood in stool. Genitourinary: No dysuria, hematuria, discharge, frequency, urgency, nocturia, incontinence, and urinary retention. Endocrine: No heat or cold intolerance, polydipsia, polyuria, and polyphagia. Neurological: No dizziness, extremity weakness and numbness, tremors, gait disturbance, seizures, and memory impairment. Psychiatric: Denies depression, anxiety,or insomnia. Musculoskeletal: Denies neck pain, stiffness and swelling, back pain, muscle weakness, joint pain, stiffness, swelling, or limited range of motion. Skin: No rashes, itching, skin lesion, changes in hair, nail, skin texture and breast. Hematologic/Lymphatic: Denies easy bruising, bleeding tendencies, or lymph node enlargement. Allergies: Coded Allergies: NO KNOWN ALLERGIES (Unverified , 06/15/15) Exam Vital Signs Vital Signs Date Time Temp Pulse Resp B/P (MAP) Pulse Ox O2 Delivery O2 Flow Rate FiO2 02/06/25 23:07 106 02/06/25 20:36 97.5 24 138/86 (103) 94 Exam General Appearance: Alert, Oriented X3, Cooperative, No acute distress HEENT: Atraumatic, PERRLA, EOMI, Mucous membrane moist/pink Respiratory: Clear to auscultation, Normal air movement Cardiovascular: Regular rate, Normal S1, Normal S2, No murmurs, no chest wall tenderness Abdominal: Normal bowel sounds, Soft, No tenderness, No hepatospenomegaly, No masses Extremities: Cold extremities Skin: Capillary refill time more than 2 seconds (4 seconds) Neuro: Normal gait, Normal speech, Strength at 5/5 X4 ext, Normal tone, Sensation intact, Cranial nerves 3-12 NL, Reflexes 2+ Psych/Mental Status: Mental status NL, Mood NL Labs/Xrays Labs Test 02/06/25 21:45 02/06/25 21:00 Range/Units Troponin I High Sensitivity 51 </=54 ng/L White Blood Count 8.3 4.4-10.8 10^3/uL Red Blood Count 4.87 4.5-5.90 10^6/uL Hemoglobin 14.9 13.5-17.5 g/dL Hematocrit 45.6 41.0-53.0 % Mean Corpuscular Volume 93.6 80.0-100.0 fL Mean Corpuscular Hemoglobin 30.6 28.0-32.0 pg Mean Corpuscular Hemoglobin Concent 32.7 32.0-36.0 g/dL Red Cell Distribution Width 16.1 H 11.8-14.3 % Platelet Count 370 140-450 10^3/uL Mean Platelet Volume 8.8 6.9-10.8 fL Neutrophils (%) (Auto) 64.0 37.0-80.0 % Lymphocytes (%) (Auto) 26.5 10.0-50.0 % Monocytes (%) (Auto) 5.9 0.0-12.0 % Eosinophils (%) (Auto) 2.7 0.0-7.0 % Basophils (%) (Auto) 0.9 0.0-2.0 % Neutrophils # (Auto) 5.3 1.6-8.6 10 ^3/uL Lymphocytes # (Auto) 2.2 0.4-5.4 10 ^3/uL Monocytes # (Auto) 0.5 0-1.3 10 ^3/uL Eosinophils # (Auto) 0.2 0-0.8 10 ^3/uL Basophils # (Auto) 0.1 0-0.2 10 ^3/uL Nucleated Red Blood Cells 0.1 % Prothrombin Time 11.4 9.3-11.8 sec Prothrombin Time INR 1.08 0.9-1.15 Sodium Level 138 136-145 mmol/L Potassium Level 4.7 3.5-5.1 mmol/L Chloride Level 105 98-107 mmol/L Carbon Dioxide Level 26 20-31 mmol/L Anion Gap 7 5-15 Blood Urea Nitrogen 28 H 9-23 mg/dL Creatinine 1.80 H 0.700-1.30 mg/dL Glomerular Filtration Rate Calc 43 >90 mL/min BUN/Creatinine Ratio 15.6 10.0-20.0 Serum Glucose 134 H 74-106 mg/dL Calcium Level 10.8 H 8.7-10.4 mg/dL Total Bilirubin 0.8 0.2-1.0 mg/dL Aspartate Amino Transferase (AST) 39 13-40 U/L Alanine Aminotransferase (ALT) 23 7-40 U/L Alkaline Phosphatase 66 46-116 U/L B-Type Natriuretic Peptide 2506.88 0-100 pg/mL Total Protein 7.4 5.7-8.2 g/dL Albumin 4.6 3.2-4.8 g/dL Assessment/Plan Assessment/Plan Acute exacerbation systolic heart failure NSTEMI, likely type 2 Status post ICD Dyslipidemia Hypertension Prediabetes Chest x-ray shows cardiomegaly with pulmonary vascular congestion EKG shows LVH pattern BNP is raised at 2508 Consult cardiology Echocardiogram IV Lasix Continue home medicine including aspirin, and empagliflozin Atorvastatin CKD 3B DIET: Cardiac the DVT PROPHYLAXIS: Lovenox GI PROPHYLAXIS:: Protonix CODE STATUS: Goal of care discussed for more than 18 minutes, full code DISPOSITION: Telemetry Patient's status and paln discussed with the patient. Case discussed with Dr. Olivier. Plan discussed with: Patient, Other (RN) Date of Service: Feb 06, 2025 Billing Provider: DYLAN OLIVIER MD Common Visit Codes: [id number]-[id number] INP/OBS CARE (HIGH) KORIJERMAINENEELIMA ASIF Feb 06, 2025 23:46 DYLAN OLIVIER MD Feb 07, 2025 17:40
[2025-02-07] VITALS (16 sets, daily range): BP systolic 113–123; BP diastolic 81–88; PULSE 52–108; RESP 12–20; TEMP 97.5–97.8; O2SAT 95–100
[2025-02-07] MEDS: ATORVASTATIN 20 MG TAB PO ONE
[2025-02-07] MEDS: FUROSEMIDE 40 MG/4 ML VIAL IV ONE
[2025-02-07 00:18] LABS: Triglycerides 142 mg/dL (< 150)
[2025-02-07 00:20] LABS: Cholesterol 182 mg/dL (< 200); HDL Cholesterol 48 mg/dL (40-59)
[2025-02-07 00:22] LABS: LDL Cholesterol 117 mg/dL (< 100)
[2025-02-07 00:26] LABS: INR 1.08 (0.9-1.15); Prothrombin Time 11.4 sec (9.3-11.8)
[2025-02-07] MEDS: LEVALBUTEROL HCL 1.25 MG/3 ML NEB NEB SCH (00:26)
[2025-02-07] MEDS: IPRATROPIUM BROM 0.5 MG/2.5ML INH SOL NEB SCH (00:26)
[2025-02-07] MEDS: PANTOPRAZOLE 40 MG/10 ML VIAL INJ IV ONE (00:36)
[2025-02-07] MEDS: ASPirin 81 mg TAB PO ONE (00:37)
[2025-02-07] MEDS: ENOXAPARIN SOD 40 MG/0.4 ML SYRINGE SC ONE (00:37)
[2025-02-07 01:57] LABS: Urine Bacteria None Seen /hpf (None Seen)
[2025-02-07 02:22] LABS: Urine Blood Negative /uL (Negative); Urine Clarity Clear (Clear); Urine Color Light-Yellow (Yellow); Urine Protein, UAD TRACE (Negative); Urine Specific Gravity 1.011 (1.001-1.035); Urine Squamous Epithelial Cell FEW /hpf (<5); Urine Urobilinogen Normal (Negative); Urine WBC < 1 /HPF (0-3)
[2025-02-07 02:33] LABS: Amphetamine Screen, Urine Pos (NEGATIVE); Barbiturate Scree,Urine Neg (NEGATIVE); Benzodiazephine Screen, Urine Neg (NEGATIVE); Cannabinoid Screen, Urine Pos (NEGATIVE); Cocaine Screen, Urine Neg (NEGATIVE); Opiate Scree,Urine Neg (NEGATIVE); Phencyclidine Screen, Urine Neg (NEGATIVE)
[2025-02-07] MEDS: FUROSEMIDE 40 MG/4 ML VIAL IV SCH (06:20)
--- NOTE | 2025-02-07 06:38 | ECG ---
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
[2025-02-07 07:25] LABS: Basophils # (auto) 0.1 10 ^3/uL (0-0.2); Basophils % (auto) 0.9 % (0.0-2.0); Eosinophils # (auto) 0.2 10 ^3/uL (0-0.8); Eosinophils % (auto) 2.8 % (0.0-7.0); Hematocrit 41.4 % (41.0-53.0); Lymphocytes # (auto) 2.6 10 ^3/uL (0.4-5.4); Lymphocytes % (auto) 32.1 % (10.0-50.0); Mean Corpuscular Hgb Conc. 33.8 g/dL (32.0-36.0); Mean Corpuscular Volume 91.8 fL (80.0-100.0); Monocytes # (auto) 0.5 10 ^3/uL (0-1.3); Monocytes % (auto) 6.1 % (0.0-12.0); Neutrophils # (auto) 4.7 10 ^3/uL (1.6-8.6); Neutrophils % (auto) 58.1 % (37.0-80.0); Nucleated Red Blood Cells % 0.1 %; Platelet Count (auto) 358 10^3/uL (140-450); Red Cell Distribution Width 15.8 % (11.8-14.3)
[2025-02-07 07:26] LABS: Alanine Aminotransferase 21 U/L (7-40); Albumin 4.4 g/dL (3.2-4.8); Alkaline Phosphatase 58 U/L (46-116); Anion Gap 11 (5-15); Aspartate Aminotransferase 32 U/L (13-40); BUN/Creatinine Ratio 17.2 (10.0-20.0); Blood Urea Nitrogen 28 mg/dL (9-23); Calcium 10.8 mg/dL (8.7-10.4); Carbon Dioxide 25 mmol/L (20-31); Chloride 104 mmol/L (98-107); Glucose 85 mg/dL (74-106); Potassium 3.9 mmol/L (3.5-5.1); Sodium 140 mmol/L (136-145)
[2025-02-07 07:27] LABS: Bilirubin, Total 1.3 mg/dL (0.2-1.0)
[2025-02-07] MEDS ORDERED: PANTOPRAZOLE 40 MG/10 ML VIAL INJ IV SCH (10:00)
--- NOTE | 2025-02-07 11:39 | DVHINCON2 ---
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 Patient relays that he has SOB while resting. Associated with chest discomfort and tiredness. Patient currently taking Lasix and 81mg of ASA daily. Patient notes that his pacemaker was placed on 12/05/23 and he has a transport corps officer appointment on 02/15/25. EKG shows tachycardia at 106. Chest x-ray shows mild cardiomegaly. BNP 2506.88, BUN 28, Real Estate Loan Officer 1.80. Troponin 49 > 51 > 60. UA is negative for infection. UDS + Amph and THC. Patient was admitted to the hospital. I am asked to consult on this patient. Family History: Patient reports no known family medical history. Allergies: Coded Allergies: NO KNOWN ALLERGIES (Unverified , 06/15/15) Home Meds Reported Medications Furosemide (Furosemide) 20 Mg Tab, 1 TAB PO DAILY 01/16/25 Dapagliflozin Propanediol (Farxiga) 10 Mg Tab, 1 TAB PO DAILY 01/16/25 Aspirin (Chewable Aspirin) 81 Mg Chw, 1 TAB PO DAILY 01/16/25 Carvedilol (Carvedilol) 6.25 Mg Tab, 1 TAB PO BID 01/16/25 Current Medications Current Medications Medications (Trade) Dose Ordered Sig/Silva Route PRN Reason Start Time Stop Time Status Last Admin Nitroglycerin (Ntrostat Sublingual) 0.4 mg Q5MINP PRN SL FOR CHEST PAIN 02/06/25 23:45 Morphine Sulfate 2 mg Q30M PRN IV FOR CHEST PAIN 02/06/25 23:45 Furosemide (Lasix Injection) 40 mg BIDD IV 02/07/25 06:00 02/07/25 06:20 Enoxaparin Sodium (Lovenox) 40 mg DAILY SC 02/07/25 10:00 Aspirin 81 mg DAILY PO 02/07/25 10:00 Empaglifozin (Jardiance) 10 mg DAILY PO 02/07/25 10:00 Pantoprazole Sodium (Protonix) 40 mg DAILY IV 02/07/25 10:00 Levalbuterol HCl (Xopenex Medneb) 0.625 mg Q6HR NEB 02/07/25 00:00 02/07/25 06:12 Ipratropium [place] (Atrovent Medneb) 0.5 mg Q6HR NEB 02/07/25 00:00 02/07/25 06:07 Atorvastatin Calcium (Lipitor) 40 mg HS PO 02/07/25 22:00 Pantoprazole Sodium (Protonix Tablet) 40 mg DAILY@0600 PO 02/08/25 06:00 UNV Review of Systems General: Patient reports fatigue and tiredness HEENT: No headaches, visiual changes, hearing loss, tinnitus, nasal congestion and discharge, and sore throat. Cardiovascular: Reports chest discomfort Respiratory: Reports shortness of breath Gastrointestinal: Denies nausea, vomiting, dysphagia, odynophagia, heartburn, abdominal pain, flatulence, bloating, diarrhea, constipation, change in stool, or blood in stool. Genitourinary: No dysuria, hematuria, discharge, frequency, urgency, nocturia, incontinence, and urinary retention. Endocrine: No heat or cold intolerance, polydipsia, polyuria, and polyphagia. Neurological: No dizziness, extremity weakness and numbness, tremors, gait disturbance, seizures, and memory impairment. Psychiatric: Denies depression, anxiety,or insomnia. Musculoskeletal: Denies neck pain, stiffness and swelling, back pain, muscle weakness, joint pain, stiffness, swelling, or limited range of motion. Skin: No rashes, itching, skin lesion, changes in hair, nail, skin texture and breast. Hematologic/Lymphatic: Denies easy bruising, bleeding tendencies, or lymph node enlargement. Vital Signs Vital Signs Date Time Temp Pulse Resp B/P (MAP) Pulse Ox O2 Delivery O2 Flow Rate FiO2 02/07/25 10:00 98 12 106/86 (93) 95 02/07/25 08:00 97.7 97.7 02/07/25 08:00 Room Air* 0 21 Physical Exam GENERAL: Awake, alert, oriented. LUNGS: Clear. CARDIOVASCULAR: Heart sounds are good. ABDOMEN: Soft. Labs/Diagnostic Data Labs Test 02/07/25 06:29 02/07/25 00:06 02/06/25 23:48 02/06/25 21:00 Range/Units White Blood Count 8.0 4.4-10.8 10^3/uL Red Blood Count 4.50 4.5-5.90 10^6/uL Hemoglobin 14.0 13.5-17.5 g/dL Hematocrit 41.4 41.0-53.0 % Mean Corpuscular Volume 91.8 80.0-100.0 fL Mean Corpuscular Hemoglobin 31.0 28.0-32.0 pg Mean Corpuscular Hemoglobin Concent 33.8 32.0-36.0 g/dL Red Cell Distribution Width 15.8 H 11.8-14.3 % Platelet Count 358 140-450 10^3/uL Mean Platelet Volume 9.3 6.9-10.8 fL Neutrophils (%) (Auto) 58.1 37.0-80.0 % Lymphocytes (%) (Auto) 32.1 10.0-50.0 % Monocytes (%) (Auto) 6.1 0.0-12.0 % Eosinophils (%) (Auto) 2.8 0.0-7.0 % Basophils (%) (Auto) 0.9 0.0-2.0 % Neutrophils # (Auto) 4.7 1.6-8.6 10 ^3/uL Lymphocytes # (Auto) 2.6 0.4-5.4 10 ^3/uL Monocytes # (Auto) 0.5 0-1.3 10 ^3/uL Eosinophils # (Auto) 0.2 0-0.8 10 ^3/uL Basophils # (Auto) 0.1 0-0.2 10 ^3/uL Nucleated Red Blood Cells 0.1 % Sodium Level 140 136-145 mmol/L Potassium Level 3.9 3.5-5.1 mmol/L Chloride Level 104 98-107 mmol/L Carbon Dioxide Level 25 20-31 mmol/L Anion Gap 11 5-15 Blood Urea Nitrogen 28 H 9-23 mg/dL Creatinine 1.63 H 0.700-1.30 mg/dL Glomerular Filtration Rate Calc 49 >90 mL/min BUN/Creatinine Ratio 17.2 10.0-20.0 Serum Glucose 85 74-106 mg/dL Calcium Level 10.8 H 8.7-10.4 mg/dL Total Bilirubin 1.3 H 0.2-1.0 mg/dL Aspartate Amino Transferase (AST) 32 13-40 U/L Alanine Aminotransferase (ALT) 21 7-40 U/L Alkaline Phosphatase 58 46-116 U/L B-Type Natriuretic Peptide 3373.66 0-100 pg/mL Total Protein 7.0 5.7-8.2 g/dL Albumin 4.4 3.2-4.8 g/dL Lactic Acid Level 1.9 0.4-2.0 mmol/L Prothrombin Time 11.4 9.3-11.8 sec Prothrombin Time INR 1.08 0.9-1.15 Troponin I High Sensitivity 60 *H </=54 ng/L Urine Color Light-yellow Yellow Urine Clarity Clear Clear Urine pH 6.0 5.0-9.0 Urine Specific [place] 1.011 1.001-1.035 Urine Protein Trace H Negative Urine Ketones Negative Negative Urine Blood Negative Negative /uL Urine Nitrite Negative Negative Urine Bilirubin Negative Negative Urine Urobilinogen Normal Negative mg/dL Urine Leukocyte Esterase Negative Negative /uL Urine RBC 1 0 - 3 /hpf Urine Microscopic WBC < 1 0-3 /HPF Urine Squamous Epithelial Cells Few <5 /hpf Urine Bacteria None seen None Seen /hpf Urine Glucose Normal Normal mg/dL Hemoglobin A1c 6.5 H <5.7 % A1C Triglycerides Level 142 < 150 mg/dL Cholesterol Level 182 < 200 mg/dL LDL Cholesterol 117 H < 100 mg/dL HDL Cholesterol 48 40-59 mg/dL Thyroid Stimulating Hormone (TSH) 4.97 H 0.55-4.78 uIU/mL Urine Opiates Screen Neg NEGATIVE Urine Fentanyl Screen Neg NEGATIVE Urine Barbiturates Screen Neg NEGATIVE Urine Phencyclidine Screen Neg NEGATIVE Urine Amphetamines Screen Pos NEGATIVE Urine Benzodiazepines Screen Neg NEGATIVE Urine Cocaine Screen Neg NEGATIVE Urine Cannabinoids Screen Pos NEGATIVE Assessment Acute exacerbation systolic heart failure. NSTEMI, likely type 2. Status post ICD. Dyslipidemia. Hypertension. Prediabetes. Systolic CHF. Plan/Recommendation I agree with your ongoing assessment and care of plan. Telemetry reviewed. Echocardiogram. Aspirin, Lipitor. DVT and GI prophylactics. Diuretics with Lasix. Morphine for pain management. Nitro SL. Additional plan as per the hospital course. A total of 45 minutes was spent reviewing the patient record, examining the patient, making a diagnostic and therapeutic plan, discussing this plan with medical personnel, following up on diagnostic studies and following the patient for clinical stability excluding any and all procedures. At least 50% of this time was spent in direct, [id number] contact. Plan discussed with: Patient MIRIAM BAXTER MD Feb 07, 2025 11:39
[2025-02-07] MEDS: ASPirin 81 mg TAB PO SCH (12:08)
[2025-02-07] MEDS: ENOXAPARIN SOD 40 MG/0.4 ML SYRINGE SC SCH (12:09)
[2025-02-07] MEDS: EMPAGLIFLOZIN 10 MG TAB PO SCH (12:18)
--- NOTE | 2025-02-07 16:45 | DVHPNRES ---
Progress Note Date Seen: Feb 07, 2025 Resident Creating Document: GEORGE RUSSELL RESIDENT Medical Necessity Reason Pt with a Central, PICC or Fol: No Subjective Review of Systems Patient is a 59-year-old male with a past medical history of heart failure with reduced ejection fraction(as per the patient's last echo showed 10% EF), CKD stage 3, hypertension, dyslipidemia, left-sided direct inguinal hernia, suspected COPD came to the hospital with a worsening shortness of breath for the last 4 months. Patient reports that he was diagnosed with heart failure and was put ICD in May [address] Bernadette Cutler following which was doing better and was able to due is daily life activities. Patient reports since the last 4 months he has been having increasing shortness of breath NYHA class 3/4. He was having orthopnea with intermittent swelling of bilateral lower extremities. Patient reported to be admitted to the hospital in December for similar complaint but he eloped up to 1 day. Past medical history: As per HPI Past surgical history: ICD Social history: Patient lives with his and family reports methamphetamine use but quit smoking Home medications: Aspirin 81 mg, Lasix 20 mg, carvedilol 6.25 mg, dapagliflozin 10 mg, per patient Entresto was stopped on October 2024 due to low BP Review of systems Patient is seen and examined at the bedside Reported no shortness a breath while at rest Reported no chest pain, palpitations, dizziness, headache Reports feeling better than when he was admitted Objective vital signs Vital Sign Date Time Temp Pulse Resp B/P (MAP) Pulse Ox O2 Delivery O2 Flow Rate FiO2 02/07/25 13:00 97.5 52 14 117/88 (98) 98 97.5 02/07/25 08:00 Room Air* 0 21 Total Intake and Output 02/06/25 02/06/25 02/07/25 15:00 23:00 07:00 Output Total 350 ml Balance -350 ml medications Current Medications Medications Dose Ordered Sig/Silva Route Start Time Stop Time Status Last Admin Dose Admin Nitroglycerin 0.4 mg Q5MINP PRN SL 02/06/25 23:45 Morphine Sulfate 2 mg Q30M PRN IV 02/06/25 23:45 Furosemide 40 mg BIDD IV 02/07/25 06:00 02/07/25 06:20 40 MG Enoxaparin Sodium 40 mg DAILY SC 02/07/25 10:00 02/07/25 12:09 40 MG Aspirin 81 mg DAILY PO 02/07/25 10:00 02/07/25 12:08 81 MG Empaglifozin 10 mg DAILY PO 02/07/25 10:00 02/07/25 12:18 10 MG Levalbuterol HCl 0.625 mg Q6HR NEB 02/07/25 00:00 02/07/25 11:36 0.625 MG Ipratropium [place] 0.5 mg Q6HR NEB 02/07/25 00:00 02/07/25 11:36 0.5 MG Atorvastatin Calcium 40 mg HS PO 02/07/25 22:00 Pantoprazole Sodium 40 mg DAILY@0600 PO 02/08/25 06:00 Carvedilol 6.25 mg Q12HR PO 02/07/25 22:00 Examination Constitutional: Patient was alert and oriented to time, place and person and appears to be in mild distress due to mild shortness of breath Gen - no pallor, no icterus, no cyanosis, no clubbing, no LAD, no pedal edema Skin - Patients skin is warm and dry. HEENT - normocephalic, atraumatic, moist mucous membranes. Neck - full ROM, no LAD, elevated jugular venous pressure seen in the upper 3rd of the SCM with a positive hepatojugular reflux. Pulmonary - B/L diminished air entry with basilar rhonchi cardiovascular - normal S1,S2 heard. Soft S3 heard. no murmurs heard. GI - soft abdomen without tenderness to palpation. no hepatospleenomegaly. Bowel sounds normoactive Neurological - Bilateral upper extremity strength 5/5, bilateral lower extremity strength 5/5, no facial droop, normal speech, no tremor, no sensory deficiets. laboratory and microbiology Laboratory Tests 02/07/25 06:29 Test 02/07/25 06:29 Range/Units Serum Glucose 85 74-106 mg/dL Problem List/Assessment/Plan Problem List/Assessment/Plan Assessment # acute exacerbation of heart failure with reduced ejection fraction # NSTEMI likely type 2 # suspected COPD # status post ICD # CKD stage 3 # dyslipidemia # hypertension # polysubstance use Elevated BNP more than 3000 ECG shows sinus tachycardia with LVH pattern Chest x-ray shows cardiomegaly with hyperinflated lungs and pulmonary vascular congestion Plan - patient is started on IV Lasix 40 mg b.i.d. with a goal fluid removal of 2 L over 24 hours. Volume status to be reassessed - resumed on carvedilol 6.25 mg b.i.d. - Jardiance 10 mg daily - aspirin 81 mg, atorvastatin 40 mg daily - DuoNebs q.6 hours - cardiology consulted who recommended continuing with the same treatment - echo pending DVT prophylaxis: Enoxaparin PUD prophylaxis: Protonix Goals of care discussed with the patient for over 25 minutes. Patient is counseled on cessation of methamphetamine use extensively and is explained that his heart failure continued to worsen. Full code Plan discussed with Dr. Ramirez Plan discussed with: Patient My Orders My Orders Orders - GEORGE RUSSELL Procedure Category Date Status Time Pantoprazole Tablet PHA 02/08/25 In Process (Protonix Tablet) 06:00 Strict I & O LEO 02/07/25 In Process 10:23 Carvedilol Tablet PHA 02/07/25 In Process (Coreg Tablet) 22:00 Date of Service: Feb 07, 2025 Billing Provider: JADA RAMIREZ MD Common Visit Codes: [id number] INP/OBS CARE(HIGH) GEORGE RUSSELL RESIDENT Feb 07, 2025 16:45 JADA RAMIREZ MD Feb 12, 2025 15:36
[2025-02-07] MEDS: ATORVASTATIN 20 MG TAB PO SCH (20:56)
[2025-02-07] MEDS: CARVEDILOL 3.125 MG TAB PO SCH (20:56)
--- NOTE | 2025-02-07 22:34 | DVHPN2 ---
Progress Note - Dictate Date Seen: Feb 07, 2025 Medical Necessity Reason Pt with a Central, PICC or Fol: No Subjective Patient was seen and evaluated in follow up. Patient reports improvement in SOB. Patient is stable on room air. Reports feeling better than when he was admitted. BUN 28, NETWORK DIAGNOSTIC SUPPORT SPECIALIST 1.63, BNP 3373.66. Echocardiogram is pending. Telemetry reviewed. vital signs Vital Sign Date Time Temp Pulse Resp B/P (MAP) Pulse Ox O2 Delivery O2 Flow Rate FiO2 02/07/25 11:04 97.7 97 19 113/81 (92) 99 97.7 02/07/25 08:00 Room Air* 0 21 Total Intake and Output 02/06/25 02/06/25 02/07/25 15:00 23:00 07:00 Output Total 350 ml Balance -350 ml medications Current Medications Medications Dose Ordered Sig/Silva Route Start Time Stop Time Status Last Admin Dose Admin Nitroglycerin 0.4 mg Q5MINP PRN SL 02/06/25 23:45 Morphine Sulfate 2 mg Q30M PRN IV 02/06/25 23:45 Furosemide 40 mg BIDD IV 02/07/25 06:00 02/07/25 06:20 40 MG Enoxaparin Sodium 40 mg DAILY SC 02/07/25 10:00 Aspirin 81 mg DAILY PO 02/07/25 10:00 Empaglifozin 10 mg DAILY PO 02/07/25 10:00 Levalbuterol HCl 0.625 mg Q6HR NEB 02/07/25 00:00 02/07/25 11:36 0.625 MG Ipratropium [place] 0.5 mg Q6HR NEB 02/07/25 00:00 02/07/25 11:36 0.5 MG Atorvastatin Calcium 40 mg HS PO 02/07/25 22:00 Pantoprazole Sodium 40 mg DAILY@0600 PO 02/08/25 06:00 objective GENERAL: Awake, alert, oriented. LUNGS: Clear. CARDIOVASCULAR: Heart sounds are good. ABDOMEN: Soft. laboratory and microbiology Laboratory Tests 02/07/25 06:29 Test 02/07/25 06:29 Range/Units Serum Glucose 85 74-106 mg/dL Problem List Acute exacerbation systolic heart failure. NSTEMI, likely type 2. Status post ICD. Dyslipidemia. Hypertension. Prediabetes. Systolic CHF. CKD stage 3. Polysubstance use. Assessment/Plan Continued all current supportive medical care. Echocardiogram. Aspirin, Lipitor. DVT and GI prophylactics. Diuretics with Lasix. Morphine for pain management. Nitro SL. Additional plan as per the hospital course. Plan discussed with: Patient MIRIAM BAXTER MD Feb 07, 2025 12:09
[2025-02-08] VITALS (14 sets, daily range): BP systolic 111–128; BP diastolic 82–89; PULSE 84–105; RESP 16–20; TEMP 97.3–98.1; O2SAT 95–100
[2025-02-08] MEDS: PANTOPRAZOLE 40 MG TAB PO SCH (05:38)
[2025-02-08 06:23] LABS: Basophils # (auto) 0.1 10 ^3/uL (0-0.2); Basophils % (auto) 1.2 % (0.0-2.0); Eosinophils # (auto) 0.3 10 ^3/uL (0-0.8); Hemoglobin 14.5 g/dL (13.5-17.5); Lymphocytes # (auto) 1.9 10 ^3/uL (0.4-5.4); Lymphocytes % (auto) 25.3 % (10.0-50.0); Mean Corpuscular Hemoglobin 30.9 pg (28.0-32.0); Mean Corpuscular Hgb Conc. 33.6 g/dL (32.0-36.0); Mean Corpuscular Volume 91.9 fL (80.0-100.0); Monocytes # (auto) 0.4 10 ^3/uL (0-1.3); Monocytes % (auto) 5.7 % (0.0-12.0); Neutrophils # (auto) 4.8 10 ^3/uL (1.6-8.6); Neutrophils % (auto) 63.8 % (37.0-80.0); Nucleated Red Blood Cells % 0.1 %; Platelet Count (auto) 339 10^3/uL (140-450); Red Blood Cells 4.68 10^6/uL (4.5-5.90); Red Cell Distribution Width 15.9 % (11.8-14.3); White Blood Cell 7.5 10^3/uL (4.4-10.8)
[2025-02-08 06:42] LABS: Chloride 102 mmol/L (98-107); Potassium 3.5 mmol/L (3.5-5.1); Sodium 140 mmol/L (136-145)
[2025-02-08 06:43] LABS: Anion Gap 10 (5-15); Carbon Dioxide 28 mmol/L (20-31)
[2025-02-08 06:48] LABS: BUN/Creatinine Ratio 18.6 (10.0-20.0); Glucose 93 mg/dL (74-106)
[2025-02-08 06:55] LABS: Blood Urea Nitrogen 32 mg/dL (9-23); Calcium 10.7 mg/dL (8.7-10.4)
--- NOTE | 2025-02-08 13:05 | DVHPN2 ---
Progress Note - Dictate Date Seen: Feb 08, 2025 Medical Necessity Reason Pt with a Central, PICC or Fol: No Subjective Patient was seen and evaluated in follow up. No overnight events. Patient denies any pain or discomfort. BUN 32, END STAPLER 1.72. Telemetry reviewed. vital signs Vital Sign Date Time Temp Pulse Resp B/P (MAP) Pulse Ox O2 Delivery O2 Flow Rate FiO2 02/08/25 11:18 95 18 100 02/08/25 11:11 Room Air* 0 21 02/08/25 09:06 128/89 02/08/25 09:00 97.9 97.9 Total Intake and Output 02/07/25 02/07/25 02/08/25 15:00 23:00 07:00 Intake Total 690 ml Balance 690 ml medications Current Medications Medications Dose Ordered Sig/Silva Route Start Time Stop Time Status Last Admin Dose Admin Nitroglycerin 0.4 mg Q5MINP PRN SL 02/06/25 23:45 Morphine Sulfate 2 mg Q30M PRN IV 02/06/25 23:45 Furosemide 40 mg BIDD IV 02/07/25 06:00 02/08/25 05:38 40 MG Enoxaparin Sodium 40 mg DAILY SC 02/07/25 10:00 02/08/25 09:05 40 MG Aspirin 81 mg DAILY PO 02/07/25 10:00 02/08/25 09:06 81 MG Empaglifozin 10 mg DAILY PO 02/07/25 10:00 02/08/25 09:06 10 MG Levalbuterol HCl 0.625 mg Q6HR NEB 02/07/25 00:00 02/08/25 11:11 0.625 MG Ipratropium [place] 0.5 mg Q6HR NEB 02/07/25 00:00 02/08/25 11:11 0.5 MG Atorvastatin Calcium 40 mg HS PO 02/07/25 22:00 02/07/25 20:56 40 MG Pantoprazole Sodium 40 mg DAILY@0600 PO 02/08/25 06:00 02/08/25 05:38 40 MG Carvedilol 6.25 mg Q12HR PO 02/07/25 22:00 02/08/25 09:06 6.25 MG objective GENERAL: Awake, alert, oriented. LUNGS: Clear. CARDIOVASCULAR: Heart sounds are good. ABDOMEN: Soft. laboratory and microbiology Laboratory Tests 02/08/25 05:18 Test 02/08/25 05:18 Range/Units Serum Glucose 93 74-106 mg/dL Problem List Acute exacerbation systolic heart failure. NSTEMI, likely type 2. Status post ICD. Dyslipidemia. Hypertension. Prediabetes. Systolic CHF. CKD stage 3. Polysubstance use. Assessment/Plan Continued all current supportive medical care. Echocardiogram. Aspirin, Lipitor. DVT and GI prophylactics. Diuretics with Lasix. Morphine for pain management. Nitro SL. Additional plan as per the hospital course. Plan discussed with: Patient MIRIAM BAXTER MD Feb 08, 2025 12:20
[2025-02-08] MEDS ORDERED: CARV6.2551 PO (18:03)
[2025-02-08] MEDS ORDERED: ATOR40TA52 PO (18:03)
[2025-02-08] MEDS ORDERED: IPRIH INH (18:03)
[2025-02-08] MEDS ORDERED: FURO1TAB31 PO (18:03)
[2025-02-08] MEDS ORDERED: DAPA1TAB4 PO (18:03)
--- NOTE | 2025-02-08 19:52 | DVHDSRES ---
Discharge Summary Date of Admission Resident Creating Document: GEORGE RUSSELL RESIDENT Feb 06, 2025 at 23:45 Date of Discharge: Feb 08, 2025 Admitting Diagnosis Acute exacerbation systolic heart failure NSTEMI, likely type 2 Status post ICD Dyslipidemia Hypertension Prediabetes CKD 3B Wounds: none Labs/Diagnostic Data: Laboratory Results Test 02/08/25 05:18 02/07/25 06:29 02/07/25 00:06 02/06/25 23:48 White Blood Count 7.5 10^3/uL (4.4-10.8) Red Blood Count 4.68 10^6/uL (4.5-5.90) Hemoglobin 14.5 g/dL (13.5-17.5) Hematocrit 43.0 % (41.0-53.0) Mean Corpuscular Volume 91.9 fL (80.0-100.0) Mean Corpuscular Hemoglobin 30.9 pg (28.0-32.0) Mean Corpuscular Hemoglobin Concent 33.6 g/dL (32.0-36.0) Red Cell Distribution Width 15.9 % (11.8-14.3) Platelet Count 339 10^3/uL (140-450) Mean Platelet Volume 9.2 fL (6.9-10.8) Neutrophils (%) (Auto) 63.8 % (37.0-80.0) Lymphocytes (%) (Auto) 25.3 % (10.0-50.0) Monocytes (%) (Auto) 5.7 % (0.0-12.0) Eosinophils (%) (Auto) 4.0 % (0.0-7.0) Basophils (%) (Auto) 1.2 % (0.0-2.0) Neutrophils # (Auto) 4.8 10 ^3/uL (1.6-8.6) Lymphocytes # (Auto) 1.9 10 ^3/uL (0.4-5.4) Monocytes # (Auto) 0.4 10 ^3/uL (0-1.3) Eosinophils # (Auto) 0.3 10 ^3/uL (0-0.8) Basophils # (Auto) 0.1 10 ^3/uL (0-0.2) Nucleated Red Blood Cells 0.1 % Sodium Level 140 mmol/L (136-145) Potassium Level 3.5 mmol/L (3.5-5.1) Chloride Level 102 mmol/L (98-107) Carbon Dioxide Level 28 mmol/L (20-31) Anion Gap 10 (5-15) Blood Urea Nitrogen 32 mg/dL (9-23) Creatinine 1.72 mg/dL (0.700-1.30) Glomerular Filtration Rate Calc 46 mL/min (>90) BUN/Creatinine Ratio 18.6 (10.0-20.0) Serum Glucose 93 mg/dL (74-106) Calcium Level 10.7 mg/dL (8.7-10.4) Total Bilirubin 1.3 mg/dL (0.2-1.0) Aspartate Amino Transferase (AST) 32 U/L (13-40) Alanine Aminotransferase (ALT) 21 U/L (7-40) Alkaline Phosphatase 58 U/L (46-116) B-Type Natriuretic Peptide 3373.66 pg/mL (0-100) Total Protein 7.0 g/dL (5.7-8.2) Albumin 4.4 g/dL (3.2-4.8) Lactic Acid Level 1.9 mmol/L (0.4-2.0) Prothrombin Time 11.4 sec (9.3-11.8) Prothrombin Time INR 1.08 (0.9-1.15) Troponin I High Sensitivity 60 ng/L (</=54) Test 02/06/25 21:00 Urine Color Light-yellow (Yellow) Urine Clarity Clear (Clear) Urine pH 6.0 (5.0-9.0) Urine Specific [place] 1.011 (1.001-1.035) Urine Protein Trace (Negative) Urine Ketones Negative (Negative) Urine Blood Negative /uL (Negative) Urine Nitrite Negative (Negative) Urine Bilirubin Negative (Negative) Urine Urobilinogen Normal mg/dL (Negative) Urine Leukocyte Esterase Negative /uL (Negative) Urine RBC 1 /hpf (0 - 3) Urine Microscopic WBC < 1 /HPF (0-3) Urine Squamous Epithelial Cells Few /hpf (<5) Urine Bacteria None seen /hpf (None Seen) Urine Glucose Normal mg/dL (Normal) Hemoglobin A1c 6.5 % A1C (<5.7) Triglycerides Level 142 mg/dL (< 150) Cholesterol Level 182 mg/dL (< 200) LDL Cholesterol 117 mg/dL (< 100) HDL Cholesterol 48 mg/dL (40-59) Thyroid Stimulating Hormone (TSH) 4.97 uIU/mL (0.55-4.78) Urine Opiates Screen Neg (NEGATIVE) Urine Fentanyl Screen Neg (NEGATIVE) Urine Barbiturates Screen Neg (NEGATIVE) Urine Phencyclidine Screen Neg (NEGATIVE) Urine Amphetamines Screen Pos (NEGATIVE) Urine Benzodiazepines Screen Neg (NEGATIVE) Urine Cocaine Screen Neg (NEGATIVE) Urine Cannabinoids Screen Pos (NEGATIVE) Other Laboratory Tests 02/08/25 05:18 Brief Hx & Hospital Course: HPI Patient is a 59-year-old male with a past medical history of heart failure with reduced ejection fraction(as per the patient's last echo showed 10% EF), CKD stage 3, hypertension, dyslipidemia, left-sided direct inguinal hernia, suspected COPD came to the hospital with a worsening shortness of breath for the last 4 months. Patient reports that he was diagnosed with heart failure and was put ICD in May [address] Bernadette Cutler following which was doing better and was able to due is daily life activities. Patient reports since the last 4 months he has been having increasing shortness of breath NYHA class 3/4. He was having orthopnea with intermittent swelling of bilateral lower extremities. Patient reported to be admitted to the hospital in December for similar complaint but he eloped up to 1 day. Past medical history: As per HPI Past surgical history: ICD Social history: Patient lives with his and family reports methamphetamine use but quit smoking Home medications: Aspirin 81 mg, Lasix 20 mg, carvedilol 6.25 mg, dapagliflozin 10 mg, per patient Entresto was stopped on October 2024 due to low BP Brief hospital course Patient was admitted to the hospital with a chief complaint of worsening shortness of breath. Patient in the hospital was started on IV Lasix 40 mg b.i.d. with a goal negative balance of -2L over 24 hours. Patient was resumed on his home medication of carvedilol 6.25 mg b.i.d.. Patient was also given breathing treatments q.6 hours with a suspected COPD. Patient's breathing improved significantly over the course of hospital stay. Echocardiogram was done which visually showed reduced ejection fraction with mitral regurgitation( formal report from the reconciliation analyst was admitted ). Patient's primary reconciliation analyst Dr. Bernadette Cutler followed with the patient in the hospital. Patient was discharged in stable condition to home and advised to follow up with the primary reconciliation analyst with a scheduled appointment on February 15, 2025 and advised to follow up in the discharge clinic within 1 week. Discharge plan Medications: Furosemide 40 mg b.i.d. Continue on carvedilol 6.25 mg b.i.d., aspirin 81 mg q.d., atorvastatin 40 mg q.d., Farxiga 10 mg q.d. Prescribed Atrovent inhaler Follow up with the primary care provider, primary reconciliation analyst and in the discharge clinic Patient needs to be referred to a plate conditioner from the discharge clinic for further workup of COPD Consults/Reason for consult Cardiology consultation for heart failure exacerbation Operations or Procedures ECHOCARDIOGRAM Condition at Discharge: Good Final Diagnosis/Problems List # acute exacerbation of heart failure with reduced ejection fraction # NSTEMI likely type 2 # suspected COPD # status post ICD # CKD stage 3 # dyslipidemia # hypertension # polysubstance use Discharge Disposition: Home Discharge Instruct/Medications Diet: Cardiac 2g Na,low cholest Activity: No Restrictions, As Tolerated Follow Up/Referral: Follow up in the discharge clinic in one week Follow up with the reconciliation analyst on the scheduled appointment Medications: as per EMR Discharge Statement: "Patient was advised to return to the ER or call 911 if any headaches, dizziness, shortness of breath, chest pain, abdominal pain, bleeding, fevers, or worsening of medical condition. Patient was counseled about treatment plan, medications, possible side effects, patientverbalized understanding. All questions were answered to the best of my ability. This discharge took greater then 30 minutes in planning, reviewing documentation, counseling the patient, and discussing with other team members." ASSESSMENT ASSESSMENT Assessment # acute exacerbation of heart failure with reduced ejection fraction # NSTEMI likely type 2 # suspected COPD # status post ICD # CKD stage 3 # dyslipidemia # hypertension # polysubstance use Date of Service: Feb 08, 2025 Billing Provider: JADA RAMIREZ MD Common Visit Codes: 22615-VFQ/OBS DISCH DAY >30min GEORGE RUSSELL RESIDENT Feb 08, 2025 19:52 JADA RAMIREZ MD Feb 12, 2025 15:51
--- NOTE | 2025-02-10 18:42 | DVHSR ---
APPROVED REPORT EXAM: Two-dimensional and M-mode echocardiogram with Doppler and color Doppler. Blood Pressure: 141/91 mmHg INDICATION HF Surgery/Intervention Pacemaker: RISK FACTORS Height: 5' 7", Weight: 171 DIMENSIONS LVDd6.7 (3.8-5.7cm)LA (2D)4.4 (1.9-4.0cm)Aortic Root3.2 (2.0-3.7cm) LVDs6.4 (2.5-4.0cm)LA (MM) (1.9-4.0cm)Aortic Cusp Exc1.9 (1.5-2.0cm) EF (%) 9.0 (55-70%)Rt. Atrium4.9 (1.9-4.0cm)Asc. Aorta cm IVSd1.2 (0.7-1.1cm)RV (D) (1.8-2.4cm) PWd1.5 (0.7-1.1cm) Mitral Valve MitralMitral Stenosis E wave1.40m/sMV Mean GR.mmHg A wave0.70m/sMV Peak GR.mmHg E/A ratio2.02D MVAcm2 Aortic Valve Aortic ValveAortic Stenosis V10.40m/Dexter Mean GR.1mmHg V20.70m/Dexter Peak GR.2mmHg LVOT Diameter2.2 (1.8-2.4cm)Doppler AVA2.17cm2 AI P 1/2 Noaj931.19ms Pulmonic Valve V20.30m/s Tricuspid Valve TR Velocity3.30m/s [id number] Conclusion 1. DILATED CARDIOMYOPATHY LV EF IS ONLY 10% 2. MODERATE DEGREE MR 3. NORMAL VALVES 4. NO EFFUSION 5. MODERATE DEGREE PULMONARY HYPERTENSION
== END 2025-02-08 21:08 | disposition home or self-care (01) | DRG 194 ==
LOC: ER 20:31 → OVERFLOW 23:45 → TELE-CENTR 02-07 23:30
PROVIDERS: ADMIT Student in an Organized Health Care Education/Training Program; ATTEND Student in an Organized Health Care Education/Training Program
DX: I13.0 Hypertensive heart and chronic kidney disease with heart failure and stage 1 through stage 4 chronic kidney disease, or unspecified chronic kidney disease (principal); I21.A1 Myocardial infarction type 2; I50.23 Acute on chronic systolic (congestive) heart failure; E78.5 Hyperlipidemia, unspecified; F19.90 Other psychoactive substance use, unspecified, uncomplicated; N18.30 Chronic kidney disease, stage 3 unspecified; R73.03 Prediabetes; J44.89 Other specified chronic obstructive pulmonary disease; Z87.891 Personal history of nicotine dependence; Z79.82 Long term (current) use of aspirin; Z79.899 Other long term (current) drug therapy; Z95.810 Presence of automatic (implantable) cardiac defibrillator
CPT/HCPCS: 36415; 71045; 80048; 80053; 80061; 80307; 81001; 83036; 83605; 83880; 84443; 84484; 85025; 85610; 93005; 93306; 94640; G0378; J2470

== ENCOUNTER 2025-03-20 02:53 | Inpatient (IN) | payer MEDICAID ==
[~2025-03-20] VITALS: Ht 172.7 cm; Wt 74.0 kg
[2025-03-20] VITALS (8 sets, daily range): BP systolic 122–128; BP diastolic 91–94; PULSE 86–99; RESP 14–18; TEMP 97.3–97.9; O2SAT 97–100
[~2025-03-20 02:53] MED LIST changes: +ATOR40TA52 PO; +FURO1TAB31 PO; -FURO20TA4 PO; +FURO40TA4 PO; +IPRIH INH; +SACU1TAB PO
--- NOTE | 2025-03-20 03:06 | ED.PDOC ---
History of Present Illness HPI Comments 59-year-old male brought in by EMS presents with a chief complaint of SOB x several hours. Per EMS, they found patient sating at 70% on room air and placed patient on CPAP and was given a dual med breathing treatment. Patient mentioned to EMS that he has been having worsening SOB over the course of the past several hours. Patient has coarse breath sounds. Time Seen by MD: 03:00 Primary Care Provider: FRANCEIES Reviewed Notes: Medications, Allergies Allergies: Coded Allergies: NO KNOWN ALLERGIES (Unverified , 06/15/15) Home Meds Active Scripts Atorvastatin Calcium (ATORVASTATIN CALCIUM) 40 Mg Tab, 40 MG PO DAILY for 30 Days, #30 TAB 0 Refills Prov:GEORGE RUSSELL 02/08/25 Ipratropium [place] Hfa (Atrovent Hfa) 17 Mcg Aer, 2 PUFF INH QID PRN for 30 Days, #12.9 GRAMS 0 Refills Prov:GEORGE QUESADA 02/08/25 Furosemide (Lasix) 40 Mg Tab, 40 MG PO BID for 30 Days, #60 TAB 0 [facility] 02/08/25 Dapagliflozin Propanediol (Farxiga) 10 Mg Tab, 1 TAB PO DAILY for 30 Days, #30 TAB [facility] 02/08/25 Carvedilol (Carvedilol) 6.25 Mg Tab, 1 TAB PO BID for 30 Days, #60 TAB [facility] 02/08/25 Reported Medications Aspirin (Chewable Aspirin) 81 Mg Chw, 1 TAB PO DAILY 01/16/25 Information Source: Emergency Med Personnel Mode of Arrival: EMS Severity: Moderate Timing: Hours Duration: Since onset Prehospital treatment: Breathing Tx, Claims Service Representative, C-Pap, Oxygen Past Medical History PAST MEDICAL HISTORY: CHF, CKF, COPD Surgical History: Pacemaker Family History Family History: Reviewed,noncontributory to illness Social History Smoker: Quit Greater Than 1 Year, Cigarettes Alcohol: Denies ETOH Use Drugs: Marijuana Lives In: Home Constitutional: denies: chills, diaphoresis, fatigue, fever, malaise, sweats, weakness, others EENTM: denies: blurred vision, double vision, ear bleeding, ear discharge, ear drainage, ear pain, ear ringing, eye pain, eye redness, hearing loss, mouth pain, mouth swelling, nasal discharge, nose bleeding, nose congestion, nose pain, photophobia, tearing, throat pain, throat swelling, voice changes, others Respiratory: reports: shortness of breath; denies: cough, hemoptysis, orthopnea, SOB at rest, SOB with excertion, stridor, wheezing, others Cardiovascular: denies: chest pain, dizzy spells, diaphoresis, Dyspnea on exertion, edema, irregular heart beat, left arm pain, lightheadedness, palpitations, PND, syncope, others Gastrointestinal: denies: abdomen distended, abdominal pain, blood streaked bowels, constipated, diarrhea, dysphagia, difficulty swallowing, hematemesis, melena, nausea, poor appetite, poor fluid intake, rectal bleeding, rectal pain, vomiting, others Genitourinary: denies: burning, dysuria, flank pain, frequency, hematuria, incontinence, penile discharge, penile sore, pain, testicle pain, testicle swelling, urgency, others Neurological: denies: dizziness, fainting, headache, left sided numbness, left sided weakness, numbness, paresthesia, pre-existing deficit, right sided numbness, right sided weakness, seizure, speech problems, tingling, tremors, weakness, others Musculoskeletal: denies: back pain, gout, joint pain, joint swelling, muscle pain, muscle stiffness, neck pain, others Integumetry: denies: bruises, change in color, change in hair/nails, dryness, laceration, lesions, lumps, rash, wounds, others Allergic/Immunocompromised: denies: Difficulty Healing, Frequent Infections, Hives, Itching, others Hematologic/Lymphatic: denies: anemia, blood clots, easy bleeding, easy bruising, swollen glands, others Endocrine: denies: excessive hunger, excessive sweating, excessive thirst, excessive urination, flushing, intolerance to cold, intolerance to heat, unexplained weight gain, unexplained weight loss, others Psychiatric: denies: anxiety, bipolar disorder, depression, hopeless, panic disorder, schizophrenia, sleepless, suicidal, others All Other Systems: Reviewed and Negative Physical Exam General Appearance: Moderate Distress, Normal HEENT: NOT DONE Neck: NOT DONE Respiratory: Respiratory Distress, Other (COARSE BREATH SOUNDS) Cardiovascular: Tachycardia Breast Exam: Deferred Gastrointestinal: NOT DONE Genitalia: Deferred Pelvic: Deferred Rectal: Deferred Extremities: NOT DONE Neurologic: Alert Cerebellar Function: NOT DONE Reflexes: NOT DONE Skin: Dry, Normal Color, Warm Lymphatic: NOT DONE Was a procedure done? Was a procedure done?: No Differential Dx Considerations may include: COPD, CHF, viral syndrome X-Ray, Labs, Meds, VS Vital Signs Date Time Temp Pulse Resp B/P (MAP) Pulse Ox O2 Delivery O2 Flow Rate FiO2 03/20/25 03:12 97.9 99 15 149/98 (115) 100 97.9 03/20/25 03:12 99 15 100 Nasal Cannula* 3 32 03/20/25 02:55 97.0 117 26 135/78 (97) 90 97.0 03/20/25 02:54 103 Lab Test 03/20/25 04:34 03/20/25 04:13 03/20/25 03:22 03/20/25 03:04 Range/Units Urine Color Light-yellow Yellow Urine Clarity Clear Clear Urine pH 5.5 5.0-9.0 Urine Specific [place] 1.011 1.001-1.035 Urine Protein Trace H Negative Urine Ketones Negative Negative Urine Blood Negative Negative /uL Urine Nitrite Negative Negative Urine Bilirubin Negative Negative Urine Urobilinogen Normal Negative mg/dL Urine Leukocyte Esterase Negative Negative /uL Urine RBC 4 0 - 3 /hpf Urine Microscopic WBC 1 0-3 /HPF Urine Squamous Epithelial Cells Few <5 /hpf Urine Bacteria Few H None Seen /hpf Urine Glucose 3+ H Normal mg/dL Troponin I High Sensitivity 48 53 </=54 ng/L White Blood Count 8.5 4.4-10.8 10^3/uL Red Blood Count 4.72 4.5-5.90 10^6/uL Hemoglobin 14.3 13.5-17.5 g/dL Hematocrit 42.6 41.0-53.0 % Mean Corpuscular Volume 90.2 80.0-100.0 fL Mean Corpuscular Hemoglobin 30.3 28.0-32.0 pg Mean Corpuscular Hemoglobin Concent 33.7 32.0-36.0 g/dL Red Cell Distribution Width 17.1 H 11.8-14.3 % Platelet Count 463 H 140-450 10^3/uL Mean Platelet Volume 8.3 6.9-10.8 fL Neutrophils (%) (Auto) 58.0 37.0-80.0 % Lymphocytes (%) (Auto) 31.1 10.0-50.0 % Monocytes (%) (Auto) 7.2 0.0-12.0 % Eosinophils (%) (Auto) 2.6 0.0-7.0 % Basophils (%) (Auto) 1.1 0.0-2.0 % Neutrophils # (Auto) 5.0 1.6-8.6 10 ^3/uL Lymphocytes # (Auto) 2.7 0.4-5.4 10 ^3/uL Monocytes # (Auto) 0.6 0-1.3 10 ^3/uL Eosinophils # (Auto) 0.2 0-0.8 10 ^3/uL Basophils # (Auto) 0.1 0-0.2 10 ^3/uL Nucleated Red Blood Cells 0.2 % Sodium Level 139 136-145 mmol/L Potassium Level 3.8 3.5-5.1 mmol/L Chloride Level 102 98-107 mmol/L Carbon Dioxide Level 25 20-31 mmol/L Anion Gap 12 5-15 Blood Urea Nitrogen 36 H 9-23 mg/dL Creatinine 2.01 H 0.700-1.30 mg/dL Glomerular Filtration Rate Calc 38 >90 mL/min BUN/Creatinine Ratio 17.9 10.0-20.0 Serum Glucose 111 H 74-106 mg/dL Calcium Level 10.3 8.7-10.4 mg/dL B-Type Natriuretic Peptide 3204.81 0-100 pg/mL Blood Gas Specimen Type Arterial Blood Gas Sample Site Right radial Blood Gas Patient Temperature 37.0 Arterial Blood Date Drawn [id number] Arterial Blood pH 7.502 H 7.350-7.450 Arterial Blood Partial Pressure CO2 25.9 L 35.0-48.0 mmHg Arterial Blood Partial Pressure O2 129.7 H 83.0-108.0 mmHg Arterial Blood HCO3 19.8 L 21.0-28.0 mmol/L Arterial Blood Oxygen Saturation 98.7 H 94.0-98.0 % Arterial Blood Base Excess -1.6 -2.0-3.0 mmol/L Arterial Blood Oxyhemoglobin 97.9 94.0-98.0 % Arterial Blood Carboxyhemoglobin 0.3 L 0.5-1.5 % Arterial Blood Methemoglobin 0.5 0.0-1.5 % Eduardo Test Positive Blood Gas Total Hemoglobin 14.90 13.5-17.5 g/dL Blood Gas Liter Flow 4.00 Blood Gas Modality Nasal cannula Blood Gas Spontaneous Rate 27 FiO2 % 36.0 Specimen Drawn By jr rt Time of 1ST Reevaluation: 03:30 Reevaluation 1ST: Unchanged Patient Education/Counseling: Diagnosis, Treatment, Prognosis Family Education/Counseling: No Family Present Departure 1 Departure Time of Disposition: 05:12 (Patient presented with acute shortness of breath concerning for acute on chronic COPD Exacerbation, Pneumonia, ACS, CHF, Pneumothorax. Less likely PE, Dissection. Data: 1. I ordered and reviewed the result of at least 3 labs including a CBC, BMP, and Troponin. 2. I independently interpreted the following tests: Chest X-ray shows cardiomegaly.Risk:This patient has a high risk of morbidity due to further diagnostic testing or treatment and may suffer from respiratory or cardiac etiology . Workup reveals a likely COPD Exacerbation and patient should be admitted for further workup. and possible expert consultation.) Impression: Primary Impression: Acute and chronic respiratory failure Additional Impressions: COPD exacerbation Acute on chronic systolic (congestive) heart failure Disposition: ADMITTED INPATIENT Admit to: Med Surg Condition: Serious Critical Care Note Critical Care Time?: Yes Critical care comment: Shortness of breath Authorized and Performed by: Fadumo Meeks MD Total critical care time: Approximately 39 minutes Due to a high probability of clinically significant, life threatening deterioration, the patient required my highest level of preparedness to inter vene emergently and I personally spent this critical care time directly and personally managing the patient. This critical care time included obtaining a history; examining the patient; pulse oximetry; ordering and review of studies; arranging urgent treatment with development of a management plan; evaluation of patient's response to treatment; frequent reassessment; and, discussions with other providers. This critical care time was performed to assess and manage the high probability of imminent, life-threatening deterioration that could result in multi-organ failure. It was exclusive of separately billable procedures and treating other patients and teaching time. Please see my other sections and the rest of the note for further information on patient assessment and treatment. Stability Stability form required: No I personally scribed for FADUMO MEEKS MD ([email or web address]) on 03/20/25 at 03:06. Electronically submitted by Bhargav Wright ([email or web address]). FADUMO MEEKS MD Mar 20, 2025 03:06
[2025-03-20 03:11] LABS: Base Excess -1.6 mmol/L (-2.0-3.0)
[2025-03-20 03:43] LABS: Basophils # (auto) 0.1 10 ^3/uL (0-0.2); Eosinophils # (auto) 0.2 10 ^3/uL (0-0.8); Hemoglobin 14.3 g/dL (13.5-17.5); Lymphocytes # (auto) 2.7 10 ^3/uL (0.4-5.4); Monocytes # (auto) 0.6 10 ^3/uL (0-1.3)
[2025-03-20 03:44] LABS: Basophils % (auto) 1.1 % (0.0-2.0); Eosinophils % (auto) 2.6 % (0.0-7.0); Hematocrit 42.6 % (41.0-53.0); Lymphocytes % (auto) 31.1 % (10.0-50.0); Mean Corpuscular Hemoglobin 30.3 pg (28.0-32.0); Mean Corpuscular Hgb Conc. 33.7 g/dL (32.0-36.0); Mean Corpuscular Volume 90.2 fL (80.0-100.0); Monocytes % (auto) 7.2 % (0.0-12.0); Nucleated Red Blood Cells % 0.2 %; Platelet Count (auto) 463 10^3/uL (140-450); Red Blood Cells 4.72 10^6/uL (4.5-5.90); Red Cell Distribution Width 17.1 % (11.8-14.3); White Blood Cell 8.5 10^3/uL (4.4-10.8)
[2025-03-20 03:47] LABS: Chloride 102 mmol/L (98-107); Potassium 3.8 mmol/L (3.5-5.1); Sodium 139 mmol/L (136-145)
[2025-03-20 03:48] LABS: Anion Gap 12 (5-15); Carbon Dioxide 25 mmol/L (20-31)
[2025-03-20 03:49] LABS: Calcium 10.3 mg/dL (8.7-10.4)
[2025-03-20 03:54] LABS: BUN/Creatinine Ratio 17.9 (10.0-20.0); Blood Urea Nitrogen 36 mg/dL (9-23); Glucose 111 mg/dL (74-106)
[2025-03-20 05:02] LABS: Urine Bacteria FEW /hpf (None Seen); Urine Blood Negative /uL (Negative); Urine Clarity Clear (Clear); Urine Color Light-Yellow (Yellow); Urine Protein, UAD TRACE (Negative); Urine Specific Gravity 1.011 (1.001-1.035); Urine Squamous Epithelial Cell FEW /hpf (<5); Urine Urobilinogen Normal (Negative); Urine WBC 1 /HPF (0-3); Urine pH 5.5 (5.0-9.0)
--- NOTE | 2025-03-20 05:23 | DVH ---
CHEST RADIOGRAPH Indication: sob Technique: Single frontal view of the chest was obtained COMPARISON: XY CHEST XRAY 1 VIEW on DOS: 02/06/25, XY CHEST PORTABLE on DOS: 01/16/25 FINDINGS: Lines and Tubes: Left chest wall AICD Lungs: Congestion Pleura: No effusion. No pneumothorax. Cardiomediastinal contours: Cardiomegaly Bones: Unremarkable IMPRESSION: Pulmonary vascular congestion
[2025-03-20] MEDS: AZITHROMYCIN 250 MG TAB PO ONE (05:33)
[2025-03-20] MEDS ORDERED: FURO40TA4 PO (06:15)
[2025-03-20] MEDS ORDERED: CARV6.2551 PO (06:19)
[2025-03-20] MEDS ORDERED: DAPA1TAB4 PO (06:19)
[2025-03-20] MEDS ORDERED: ATOR-507 PO (06:23)
[2025-03-20] MEDS: ALBUTEROL SULF 2.5 MG/0.5ML(0.5%) NEB SOLN NEB ONE (06:28)
[2025-03-20] MEDS: IPRATROPIUM BROM 0.5 MG/2.5ML INH SOL NEB ONE (06:29)
[2025-03-20] MEDS ORDERED: MORPHINE SULFATE INJ 2 MG/ml SYRG IV PRN (10:00)
[2025-03-20] MEDS ORDERED: ACETAMINOPHEN 325 MG TAB PO PRN (10:00)
[2025-03-20] MEDS ORDERED: ONDANSETRON HCL 4 MG/2 ML VIAL IV PRN (10:00)
[2025-03-20] MEDS ORDERED: PATIENTS OWN MEDICATION (Carvedilol 6.25 MG) PO SCH (10:00)
[2025-03-20] MEDS ORDERED: HYDROcodone-ACET 5/325MG TAB PO PRN (10:00)
[2025-03-20] MEDS ORDERED: NITROGLYCERIN 0.4 MG SL TAB SL PRN (10:00)
[2025-03-20] MEDS ORDERED: DOCUSATE SOD 100 MG CAP PO PRN (10:00)
--- NOTE | 2025-03-20 10:15 | ECG ---
[facility] Test Date: 2025-03-20 Test Time: 02:54:44 Pat Name: VANDANA MCGEE Department: ED Room: 0298T Gender: M Sales Correspondent: CATHERINE : 1965 Requested By: FADUMO CARLSON Order Number: [id number] Reading MD: Yasmany Ellington Measurements Intervals [place] Rate: 103 P: 77 MS: 169 QRS: -55 QRSD: 110 T: 90 QT: 346 QTc: 453 Interpretive Statements Sinus tachycardia Probable left atrial enlargement Left anterior fascicular block LVH with secondary repolarization abnormality Anterior ST elevation, probably due to LVH Electronically Signed On 03-21-2025 13:14:02 PDT by Yasmany Ellington Please click the below link to view image of tracing.
--- NOTE | 2025-03-20 10:24 | DVHHP2 ---
History of Present Illness Reason for Visit: Shortness of breath History of Present Illness Gordon Mancia is a 59-year-old male, with past medical history of CHF, CKF, COPD, hernia, and sleep apnea, who came in for shortness of breath. Patient states he woke up gasping for air. He states that happens sometimes, but usually it gets better and he is able to go back to sleep. This morning the shortness of breath was not improving so he called EMS. When EMS arrived his oxygen saturation was around 70% on room air, he was placed on Bipap and taken to the hospital. Patient was given breathing treatments and supplemental oxygen from ER. On assessment patient is on 3L N/C, doing well, able to speak in full se ntences, no shortness of breath noted. Cardiovascular: CHF, Other (pacemaker) Pulmonary: COPD, Other (sleep apnea) Renal/: Chronic renal insuff Past Surgical History: Other (pacemaker) Smoke: Quit (2 years ago) ALCOHOL: none Drugs: Other (methamphetamines) Lives: with Family Domestic Violence: Neg Review of Systems Constitutional: No: Fever, Chills, Sweats, Weakness, Malaise, Other Eyes: No: Pain, Vision change, Conjunctivae inflammation, Eyelid inflammation, Other, Redness ENT: No: Ear pain, Ear discharge, Nose pain, Nose discharge, Nose congestion, Mouth pain, Mouth swelling, Throat pain, Throat swelling, Other Respiratory: Shortness of breath, SOB with excertion; No: Cough, Dry, Wheezing, Hemoptysis, Pleuritic Pain, Sputum, Wheezing, Other Cardiovascular: No: Chest Pain, Palpitations, Orthopnea, Paroxysmal Noc. Dyspnea, Edema, Lt Headedness, Other Gastrointestinal: No: Nausea, Vomiting, Abdominal Pain, Diarrhea, Constipation, Melena, Hematochezia, Other Genitourinary: No Dysuria, No Frequency, No Incontinence, No Hematuria, No Retention, No Other Musculoskeletal: No: other, neck pain, shoulder pain, arm pain, back pain, hand pain, leg pain, foot pain Skin: No: Rash, Lesions, Jaundice, Bruising, Other Neurological: No: Weakness, Numbness, Incoordination, Change in speech, Confusion, Seizures, Other Allergies: Coded Allergies: NO KNOWN ALLERGIES (Unverified , 06/15/15) Exam Vital Signs Vital Signs Date Time Temp Pulse Resp B/P (MAP) Pulse Ox O2 Delivery O2 Flow Rate FiO2 03/20/25 08:00 94 03/20/25 08:00 16 132/100 (111) 100 03/20/25 07:30 Nasal Cannula* 3 32 03/20/25 07:30 97.9 97.9 General Appearance: Alert, Oriented X3, Cooperative, mild distress HEENT: Atraumatic, PERRLA Respiratory: Other (Diminished breath sounds, coarse breath sounds) Cardiovascular: Regular rate, Normal S1, Normal S2, No murmurs Abdominal: Normal bowel sounds, Soft, No tenderness, No hepatospenomegaly Extremities: No clubbing, No cyanosis, Normal pulses, No tenderness/swelling Skin: No rashes, No breakdown, No significant lesion Neuro: Normal gait, Normal speech, Strength at 5/5 X4 ext Psych/Mental Status: Mental status NL, Mood NL Labs/Xrays Labs Test 03/20/25 06:21 03/20/25 04:34 03/20/25 03:22 03/20/25 03:04 Range/Units Troponin I High Sensitivity 51 </=54 ng/L Urine Color Light-yellow Yellow Urine Clarity Clear Clear Urine pH 5.5 5.0-9.0 Urine Specific [place] 1.011 1.001-1.035 Urine Protein Trace H Negative Urine Ketones Negative Negative Urine Blood Negative Negative /uL Urine Nitrite Negative Negative Urine Bilirubin Negative Negative Urine Urobilinogen Normal Negative mg/dL Urine Leukocyte Esterase Negative Negative /uL Urine RBC 4 0 - 3 /hpf Urine Microscopic WBC 1 0-3 /HPF Urine Squamous Epithelial Cells Few <5 /hpf Urine Bacteria Few H None Seen /hpf Urine Glucose 3+ H Normal mg/dL White Blood Count 8.5 4.4-10.8 10^3/uL Red Blood Count 4.72 4.5-5.90 10^6/uL Hemoglobin 14.3 13.5-17.5 g/dL Hematocrit 42.6 41.0-53.0 % Mean Corpuscular Volume 90.2 80.0-100.0 fL Mean Corpuscular Hemoglobin 30.3 28.0-32.0 pg Mean Corpuscular Hemoglobin Concent 33.7 32.0-36.0 g/dL Red Cell Distribution Width 17.1 H 11.8-14.3 % Platelet Count 463 H 140-450 10^3/uL Mean Platelet Volume 8.3 6.9-10.8 fL Neutrophils (%) (Auto) 58.0 37.0-80.0 % Lymphocytes (%) (Auto) 31.1 10.0-50.0 % Monocytes (%) (Auto) 7.2 0.0-12.0 % Eosinophils (%) (Auto) 2.6 0.0-7.0 % Basophils (%) (Auto) 1.1 0.0-2.0 % Neutrophils # (Auto) 5.0 1.6-8.6 10 ^3/uL Lymphocytes # (Auto) 2.7 0.4-5.4 10 ^3/uL Monocytes # (Auto) 0.6 0-1.3 10 ^3/uL Eosinophils # (Auto) 0.2 0-0.8 10 ^3/uL Basophils # (Auto) 0.1 0-0.2 10 ^3/uL Nucleated Red Blood Cells 0.2 % Sodium Level 139 136-145 mmol/L Potassium Level 3.8 3.5-5.1 mmol/L Chloride Level 102 98-107 mmol/L Carbon Dioxide Level 25 20-31 mmol/L Anion Gap 12 5-15 Blood Urea Nitrogen 36 H 9-23 mg/dL Creatinine 2.01 H 0.700-1.30 mg/dL Glomerular Filtration Rate Calc 38 >90 mL/min BUN/Creatinine Ratio 17.9 10.0-20.0 Serum Glucose 111 H 74-106 mg/dL Calcium Level 10.3 8.7-10.4 mg/dL B-Type Natriuretic Peptide 3204.81 0-100 pg/mL Blood Gas Specimen Type Arterial Blood Gas Sample Site Right radial Blood Gas Patient Temperature 37.0 Arterial Blood Date Drawn [id number] Arterial Blood pH 7.502 H 7.350-7.450 Arterial Blood Partial Pressure CO2 25.9 L 35.0-48.0 mmHg Arterial Blood Partial Pressure O2 129.7 H 83.0-108.0 mmHg Arterial Blood HCO3 19.8 L 21.0-28.0 mmol/L Arterial Blood Oxygen Saturation 98.7 H 94.0-98.0 % Arterial Blood Base Excess -1.6 -2.0-3.0 mmol/L Arterial Blood Oxyhemoglobin 97.9 94.0-98.0 % Arterial Blood Carboxyhemoglobin 0.3 L 0.5-1.5 % Arterial Blood Methemoglobin 0.5 0.0-1.5 % Eduardo Test Positive Blood Gas Total Hemoglobin 14.90 13.5-17.5 g/dL Blood Gas Liter Flow 4.00 Blood Gas Modality Nasal cannula Blood Gas Spontaneous Rate 27 FiO2 % 36.0 Specimen Drawn By [facility] rt CHEST RADIOGRAPH FINDINGS: Lines and Tubes: Left chest wall AICD Lungs: Congestion Pleura: No effusion. No pneumothorax. Cardiomediastinal contours: Cardiomegaly Bones: Unremarkable IMPRESSION: Pulmonary vascular congestion Assessment/Plan Assessment/Plan Assessment: Acute on chronic systolic (congestive) heart failure, Chronic kidney disease, COPD, Sleep apnea, Plan: Admit to Tele, Breathing treatments as needed, Supplemental oxygen as needed, IV Lasix, Home medications reconciled, Plan discussed with: Patient Date of Service: Mar 20, 2025 Billing Provider: YURI VASQUEZ Common Visit Codes: [id number] INP/OBS CARE (MOD) YURI VASQUEZ Mar 20, 2025 10:24
[2025-03-20] MEDS: FUROSEMIDE 40 MG/4 ML VIAL IV ONE (10:37)
[2025-03-20] MEDS: CARVEDILOL 3.125 MG TAB PO SCH (10:38)
[2025-03-20] MEDS: ASPirin 81 mg TAB PO SCH (10:38)
[2025-03-20] MEDS: EMPAGLIFLOZIN 10 MG TAB PO SCH (10:39)
[2025-03-20] MEDS: IPRATROPIUM BROM 0.5 MG/2.5ML INH SOL NEB PRN (12:46)
[2025-03-20] MEDS: ALBUTEROL SULF 2.5 MG/0.5ML(0.5%) NEB SOLN NEB PRN (12:46)
[2025-03-20 13:28] LABS: Amphetamine Screen, Urine Pos (NEGATIVE); Barbiturate Scree,Urine Neg (NEGATIVE); Benzodiazephine Screen, Urine Neg (NEGATIVE); Cannabinoid Screen, Urine Pos (NEGATIVE); Cocaine Screen, Urine Neg (NEGATIVE)
[2025-03-20 13:30] LABS: Opiate Scree,Urine Neg (NEGATIVE); Phencyclidine Screen, Urine Neg (NEGATIVE)
[2025-03-20] MEDS: SODIUM CHLOR 0.9% PF (SALINE LOCK) 10ML VIAL/SYR IV SCH (14:02)
[2025-03-20] MEDS: FUROSEMIDE 20 MG/2 ML VIAL IV SCH (18:15)
[2025-03-20] MEDS: ATORVASTATIN 20 MG TAB PO SCH (22:50)
[2025-03-21] VITALS (11 sets, daily range): BP systolic 101–124; BP diastolic 64–93; PULSE 68–83; RESP 17–18; TEMP 97.3–98.2; O2SAT 90–98
[2025-03-21 08:03] LABS: Basophils # (auto) 0.1 10 ^3/uL (0-0.2); Eosinophils # (auto) 0.3 10 ^3/uL (0-0.8); Monocytes # (auto) 0.6 10 ^3/uL (0-1.3)
[2025-03-21 08:05] LABS: Basophils % (auto) 1.2 % (0.0-2.0); Eosinophils % (auto) 4.6 % (0.0-7.0); Hematocrit 44.5 % (41.0-53.0); Mean Corpuscular Hemoglobin 30.3 pg (28.0-32.0); Mean Corpuscular Hgb Conc. 33.7 g/dL (32.0-36.0); Monocytes % (auto) 7.9 % (0.0-12.0); Neutrophils # (auto) 4.5 10 ^3/uL (1.6-8.6); Neutrophils % (auto) 59.3 % (37.0-80.0); Nucleated Red Blood Cells % 0.1 %; Platelet Count (auto) 454 10^3/uL (140-450); Red Blood Cells 4.95 10^6/uL (4.5-5.90); White Blood Cell 7.6 10^3/uL (4.4-10.8)
--- NOTE | 2025-03-21 08:30 | CONS ---
Pharmacy Clinical Information: From Heart Failure Potential Fallout Report on CQM Application, Gordon Mancia is a 59 year old male with PMH of CHF, CKF, COPD, hernia, sleep apnea. His home medications for heart failure include sacubitril/valsartan, dapagliflozin, and carvedilol. His inpatient medications include empagliflozin, carvedilol. Consider switching carvedilol to metoprolol succinate due to COPD. Consider resuming home dose of sacubitril/valsartan if BP permits. Since K <5 and eGFR >30, consider initiation of MRA at next outpatient follow up visit at the discretion of the medical records supervisor VANDANA PABLO PHARMACIST Mar 21, 2025 08:30
[2025-03-21 08:33] LABS: Albumin 4.1 g/dL (3.2-4.8); Alkaline Phosphatase 84 U/L (46-116); Anion Gap 11 (5-15); BUN/Creatinine Ratio 16.3 (10.0-20.0); Carbon Dioxide 26 mmol/L (20-31); Chloride 101 mmol/L (98-107); Glucose 92 mg/dL (74-106); Sodium 138 mmol/L (136-145)
[2025-03-21 08:37] LABS: Potassium 3.4 mmol/L (3.5-5.1)
[2025-03-21 08:38] LABS: Alanine Aminotransferase 49 U/L (7-40); Aspartate Aminotransferase 73 U/L (13-40); Bilirubin, Total 1.5 mg/dL (0.2-1.0); Blood Urea Nitrogen 34 mg/dL (9-23); Calcium 10.5 mg/dL (8.7-10.4)
--- NOTE | 2025-03-21 11:37 | DVHPN2 ---
Reviewed: Care Plan, H&P, Labs, Medications, Previous Orders, Radiology Changes from previous H/P or p: No Changes Eyes: No Pain, No Vision change, No Conjunctivae inflammation, No Eyelid inflammation, No Other, No Redness ENT: No Ear pain, No Ear discharge, No Nose pain, No Nose discharge, No Nose congestion, No Mouth pain, No Mouth swelling, No Throat pain, No Throat swelling, No Other Cardiovascular: No Chest Pain, No Palpitations, No Orthopnea, No Paroxysmal Noc. Dyspnea, No Edema, No Lt Headedness, No Other Respiratory: No Cough, No Dry; Shortness of breath, SOB with excertion; No Wheezing, No Hemoptysis, No Pleuritic Pain, No Sputum, No Other Gastrointestinal: No Nausea, No Vomiting, No Abdominal Pain, No Diarrhea, No Constipation, No Melena, No Hematochezia, No Other Genitourinary: No Dysuria, No Frequency, No Incontinence, No Hematuria, No Retention, No Other Musculoskeletal: No other, No neck pain, No shoulder pain, No arm pain, No back pain, No hand pain, No leg pain, No foot pain Skin: No Rash, No Lesions, No Jaundice, No Bruising, No Other Objective Vitals Vital Signs Date Time Temp Pulse Resp B/P (MAP) Pulse Ox O2 Delivery O2 Flow Rate FiO2 03/21/25 08:55 97.3 80 18 120/93 (102) 96 97.3 03/21/25 08:15 Room Air* 0 21 Intake/Output Intake and Output 03/21/25 07:00 Intake Total 1040 ml Balance 1040 ml Intake Oral 1040 ml # Voids 4 Medications Current Medications Medications Dose Ordered Sig/Silva Route Start Time Stop Time Status Last Admin Dose Admin Sodium Chloride 10 ml Q8HR IV 03/20/25 14:00 03/21/25 05:28 10 ML Acetaminophen/ Hydrocodone Bitart 1 tab Q4HP PRN PO 03/20/25 10:00 Ondansetron HCl 4 mg Q4HP PRN IV 03/20/25 10:00 Docusate Sodium 100 mg BIDPRN PRN PO 03/20/25 10:00 Acetaminophen 650 mg Q6HP PRN PO 03/20/25 10:00 Nitroglycerin 0.4 mg Q5MINP PRN SL 03/20/25 10:00 Morphine Sulfate 2 mg Q30M PRN IV 03/20/25 10:00 Aspirin 81 mg DAILY PO 03/20/25 10:23 03/21/25 08:42 81 MG Atorvastatin Calcium 40 mg HS PO 03/20/25 22:00 03/20/25 22:50 40 MG Empaglifozin 10 mg DAILY PO 03/20/25 10:26 03/21/25 08:42 10 MG Ipratropium [place] 0.5 mg Q4HPRN PRN NEB 03/20/25 10:00 03/20/25 12:46 0.5 MG Albuterol 2.5 mg Q4HPRN PRN NEB 03/20/25 10:00 03/20/25 12:46 2.5 MG Furosemide 20 mg BIDD IV 03/20/25 18:00 03/21/25 06:59 20 MG Carvedilol 6.25 mg BID PO 03/20/25 10:21 03/21/25 08:43 6.25 MG Laboratory Results Laboratory Tests 03/21/25 07:39 Chemistry Test 03/21/25 07:39 Albumin 4.1 g/dL (3.2-4.8) Calcium Level 10.5 mg/dL (8.7-10.4) H Total Protein 7.0 g/dL (5.7-8.2) LFT Test 03/21/25 07:39 Alanine Aminotransferase (ALT) 49 U/L (7-40) H Alkaline Phosphatase 84 U/L (46-116) Aspartate Amino Transferase (AST) 73 U/L (13-40) H Total Bilirubin 1.5 mg/dL (0.2-1.0) H Urinalysis Test 03/20/25 04:34 Urine Color Light-yellow (Yellow) Urine Clarity Clear (Clear) Urine pH 5.5 (5.0-9.0) Urine Specific [place] 1.011 (1.001-1.035) Urine Protein Trace (Negative) H Urine Ketones Negative (Negative) Urine Blood Negative /uL (Negative) Urine Nitrite Negative (Negative) Urine Bilirubin Negative (Negative) Urine Urobilinogen Normal mg/dL (Negative) Urine Leukocyte Esterase Negative /uL (Negative) Urine RBC 4 /hpf (0 - 3) Urine Microscopic WBC 1 /HPF (0-3) Urine Squamous Epithelial Cells Few /hpf (<5) Urine Bacteria Few /hpf (None Seen) H Urine Glucose 3+ mg/dL (Normal) H Labs and/or images reviewed: Labs reviewed by me, Image(s) reviewed by me Assessment/Plan Assessment/Plan Acute on chronic hypoxic respiratory failure Acute exacerbation of chronic systolic congestion heart failure ejection fraction 10% BNP 3200, consult for Cardiology , continue Lasix Jardiance Coreg Acute COPD exacerbation Status post AICD CKD three Hypertension Hypercholesterolemia Polysubstance abuse including methamphetamine: Counseling Time spent 55 minutes Patient is full code Advanced care planning time 20 minutes Plan discussed with: Patient Date of Service: Mar 21, 2025 Billing Provider: RACHELE EARLY MD Common Visit Codes: [id number] INP/OBS CARE(HIGH) Secondary Visit Codes: [id number] CARE PLAN 30 MINUTES RACHELE EARLY MD Mar 21, 2025 11:37
--- NOTE | 2025-03-21 16:44 | DVHINCON2 ---
Date of service: Mar 21, 2025 Reason for Consultation Acute kidney injury History of Present Illness 59-year-old white male with past medical history of congestive heart failure with low ejection fraction, hypertension, COPD, chronic kidney disease stage 3 B presents to the hospital complaining of shortness of breath. He was admitted with a diagnosis of decompensated heart failure. Nephrology consulted due to elevated creatinine level. 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 Lasix twice per day however he does not restrict his fluids as he reports " he loves to drink water" At bedside patient has multiple jugs of water Allergies: Coded Allergies: NO KNOWN ALLERGIES (Unverified , 06/15/15) Home Meds Active Scripts Ipratropium [place] Hfa (Atrovent Hfa) 17 Mcg Aer, 2 PUFF INH QID PRN for 30 Days, #12.9 GRAMS 0 Refills Prov:GEORGE RUSSELL 02/08/25 Furosemide (Lasix) 40 Mg Tab, 40 MG PO BID for 30 Days, #60 TAB 0 Refills Prov:GEORGE RUSSELL 02/08/25 Reported Medications Sacubitril-Valsartan (Entresto 24-26 mg) 1 Tab Tab, 1 TAB PO DAILY 03/20/25 Atorvastatin Calcium (Lipitor) 40 Mg Tab, 1 TAB PO DAILY, #30 TAB 5 Refills 03/20/25 Dapagliflozin Propanediol (Farxiga) 10 Mg Tab, 10 MG PO DAILY, TAB 03/20/25 Carvedilol (Carvedilol) 6.25 Mg Tab, 6.25 MG PO Q12HR, MG 03/20/25 Furosemide (Furosemide) 40 Mg Tab, 40 MG PO BIDD, MG 03/20/25 Aspirin (Chewable Aspirin) 81 Mg Chw, 1 TAB PO DAILY 01/16/25 Discontinued Scripts Atorvastatin Calcium (ATORVASTATIN CALCIUM) 40 Mg Tab, 40 MG PO DAILY for 30 Days, #30 TAB 0 Refills Prov:GEORGE RUSSELL 02/08/25 Dapagliflozin Propanediol (Farxiga) 10 Mg Tab, 1 TAB PO DAILY for 30 Days, #30 TAB Prov:GEORGE RUSSELL 02/08/25 Carvedilol (Carvedilol) 6.25 Mg Tab, 1 TAB PO BID for 30 Days, #60 TAB Prov:GEORGE RUSSELL RESIDENT 02/08/25 Current Medications Current Medications Medications (Trade) Dose Ordered Sig/Silva Route PRN Reason Start Time Stop Time Status Last Admin Atorvastatin Calcium (Lipitor) 40 mg HS PO 03/20/25 22:00 03/20/25 22:50 Furosemide (Lasix Injection) 20 mg BIDD IV 03/20/25 18:00 03/21/25 06:59 Family History: Patient reports no known family medical history. Review of Systems Shortness of breath H&P Exam Vital Signs/I&O Vital Sign Date Time Temp Pulse Resp B/P (MAP) Pulse Ox O2 Delivery O2 Flow Rate FiO2 03/21/25 10:13 68 106/73 03/21/25 08:55 97.3 18 96 97.3 03/21/25 08:15 Room Air* 0 21 Intake and Output 03/20/25 03/21/25 19:00 07:00 Intake Total 1040 ml Balance 1040 ml Intake Oral 1040 ml # Voids 4 Physical Exam Middle-aged white male Not in overt distress No overt signs of edema No obvious JVD Regular rate and rhythm No wheezes at this times lungs clear to auscultation Labs/Diagnostic Data Labs/Diagnostic Data Laboratory Tests Test 03/21/25 07:39 03/20/25 06:21 03/20/25 04:34 03/20/25 04:13 Range/Units White Blood Count 7.6 4.4-10.8 10^3/uL Red Blood Count 4.95 4.5-5.90 10^6/uL Hemoglobin 15.0 13.5-17.5 g/dL Hematocrit 44.5 41.0-53.0 % Mean Corpuscular Volume 90.0 80.0-100.0 fL Mean Corpuscular Hemoglobin 30.3 28.0-32.0 pg Mean Corpuscular Hemoglobin Concent 33.7 32.0-36.0 g/dL Red Cell Distribution Width 17.0 H 11.8-14.3 % Platelet Count 454 H 140-450 10^3/uL Mean Platelet Volume 8.4 6.9-10.8 fL Neutrophils (%) (Auto) 59.3 37.0-80.0 % Lymphocytes (%) (Auto) 27.0 10.0-50.0 % Monocytes (%) (Auto) 7.9 0.0-12.0 % Eosinophils (%) (Auto) 4.6 0.0-7.0 % Basophils (%) (Auto) 1.2 0.0-2.0 % Neutrophils # (Auto) 4.5 1.6-8.6 10 ^3/uL Lymphocytes # (Auto) 2.0 0.4-5.4 10 ^3/uL Monocytes # (Auto) 0.6 0-1.3 10 ^3/uL Eosinophils # (Auto) 0.3 0-0.8 10 ^3/uL Basophils # (Auto) 0.1 0-0.2 10 ^3/uL Nucleated Red Blood Cells 0.1 % Sodium Level 138 136-145 mmol/L Potassium Level 3.4 L 3.5-5.1 mmol/L Chloride Level 101 98-107 mmol/L Carbon Dioxide Level 26 20-31 mmol/L Anion Gap 11 5-15 Blood Urea Nitrogen 34 H 9-23 mg/dL Creatinine 2.09 H 0.700-1.30 mg/dL Glomerular Filtration Rate Calc 36 >90 mL/min BUN/Creatinine Ratio 16.3 10.0-20.0 Serum Glucose 92 74-106 mg/dL Calcium Level 10.5 H 8.7-10.4 mg/dL Total Bilirubin 1.5 H 0.2-1.0 mg/dL Aspartate Amino Transferase (AST) 73 H 13-40 U/L Alanine Aminotransferase (ALT) 49 H 7-40 U/L Alkaline Phosphatase 84 46-116 U/L Total Protein 7.0 5.7-8.2 g/dL Albumin 4.1 3.2-4.8 g/dL Troponin I High Sensitivity 51 48 </=54 ng/L Urine Color Light-yellow Yellow Urine Clarity Clear Clear Urine pH 5.5 5.0-9.0 Urine Specific [place] 1.011 1.001-1.035 Urine Protein Trace H Negative Urine Ketones Negative Negative Urine Blood Negative Negative /uL Urine Nitrite Negative Negative Urine Bilirubin Negative Negative Urine Urobilinogen Normal Negative mg/dL Urine Leukocyte Esterase Negative Negative /uL Urine RBC 4 0 - 3 /hpf Urine Microscopic WBC 1 0-3 /HPF Urine Squamous Epithelial Cells Few <5 /hpf Urine Bacteria Few H None Seen /hpf Urine Glucose 3+ H Normal mg/dL Urine Opiates Screen Neg NEGATIVE Urine Fentanyl Screen Neg NEGATIVE Urine Barbiturates Screen Neg NEGATIVE Urine Phencyclidine Screen Neg NEGATIVE Urine Amphetamines Screen Pos NEGATIVE Urine Benzodiazepines Screen Neg NEGATIVE Urine Cocaine Screen Neg NEGATIVE Urine Cannabinoids Screen Pos NEGATIVE Test 03/20/25 03:22 03/20/25 03:04 Range/Units White Blood Count 8.5 4.4-10.8 10^3/uL Red Blood Count 4.72 4.5-5.90 10^6/uL Hemoglobin 14.3 13.5-17.5 g/dL Hematocrit 42.6 41.0-53.0 % Mean Corpuscular Volume 90.2 80.0-100.0 fL Mean Corpuscular Hemoglobin 30.3 28.0-32.0 pg Mean Corpuscular Hemoglobin Concent 33.7 32.0-36.0 g/dL Red Cell Distribution Width 17.1 H 11.8-14.3 % Platelet Count 463 H 140-450 10^3/uL Mean Platelet Volume 8.3 6.9-10.8 fL Neutrophils (%) (Auto) 58.0 37.0-80.0 % Lymphocytes (%) (Auto) 31.1 10.0-50.0 % Monocytes (%) (Auto) 7.2 0.0-12.0 % Eosinophils (%) (Auto) 2.6 0.0-7.0 % Basophils (%) (Auto) 1.1 0.0-2.0 % Neutrophils # (Auto) 5.0 1.6-8.6 10 ^3/uL Lymphocytes # (Auto) 2.7 0.4-5.4 10 ^3/uL Monocytes # (Auto) 0.6 0-1.3 10 ^3/uL Eosinophils # (Auto) 0.2 0-0.8 10 ^3/uL Basophils # (Auto) 0.1 0-0.2 10 ^3/uL Nucleated Red Blood Cells 0.2 % Sodium Level 139 136-145 mmol/L Potassium Level 3.8 3.5-5.1 mmol/L Chloride Level 102 98-107 mmol/L Carbon Dioxide Level 25 20-31 mmol/L Anion Gap 12 5-15 Blood Urea Nitrogen 36 H 9-23 mg/dL Creatinine 2.01 H 0.700-1.30 mg/dL Glomerular Filtration Rate Calc 38 >90 mL/min BUN/Creatinine Ratio 17.9 10.0-20.0 Serum Glucose 111 H 74-106 mg/dL Calcium Level 10.3 8.7-10.4 mg/dL Troponin I High Sensitivity 53 </=54 ng/L B-Type Natriuretic Peptide 3204.81 0-100 pg/mL Blood Gas Specimen Type Arterial Blood Gas Sample Site Right radial Blood Gas Patient Temperature 37.0 Arterial Blood Date Drawn [id number] Arterial Blood pH 7.502 H 7.350-7.450 Arterial Blood Partial Pressure CO2 25.9 L 35.0-48.0 mmHg Arterial Blood Partial Pressure O2 129.7 H 83.0-108.0 mmHg Arterial Blood HCO3 19.8 L 21.0-28.0 mmol/L Arterial Blood Oxygen Saturation 98.7 H 94.0-98.0 % Arterial Blood Base Excess -1.6 -2.0-3.0 mmol/L Arterial Blood Oxyhemoglobin 97.9 94.0-98.0 % Arterial Blood Carboxyhemoglobin 0.3 L 0.5-1.5 % Arterial Blood Methemoglobin 0.5 0.0-1.5 % Eduardo Test Positive Blood Gas Total Hemoglobin 14.90 13.5-17.5 g/dL Blood Gas Liter Flow 4.00 Blood Gas Modality Nasal cannula Blood Gas Spontaneous Rate 27 FiO2 % 36.0 Specimen Drawn By jr rt Microbiology Date/Time Source Procedure Growth Status 03/21/25 08:40 Nose MRSA Screen - Final Complete Assessment Acute kidney injury prerenal in the setting of volume overload Chronic kidney disease stage IIIB Cardiorenal syndrome Severe cardiomyopathy with ejection fraction of 10%., severe pulm htn Patient needs to adhere to fluid restriction recommend 32-40 oz per day 40 oz being the maximum per day. Patient currently now drinks approximately 3 L which i explained is excessive Lasix 40 b.i.d. Low-salt diet Fluid restriction cardiac meds ezra meyer can be given monitor UOP Plan discussed with: Patient ANTHONY JACKSON MD Mar 21, 2025 16:44
[2025-03-22] VITALS (9 sets, daily range): BP systolic 114–126; BP diastolic 79–94; PULSE 51–99; RESP 17–19; TEMP 97.5–98.5; O2SAT 92–99
--- NOTE | 2025-03-22 10:31 | DVHPN2 ---
Reviewed: Care Plan, H&P, Labs, Medications, Previous Orders, Radiology Changes from previous H/P or p: No Changes Eyes: No Pain, No Vision change, No Conjunctivae inflammation, No Eyelid inflammation, No Other, No Redness ENT: No Ear pain, No Ear discharge, No Nose pain, No Nose discharge, No Nose congestion, No Mouth pain, No Mouth swelling, No Throat pain, No Throat swelling, No Other Cardiovascular: No Chest Pain, No Palpitations, No Orthopnea, No Paroxysmal Noc. Dyspnea, No Edema, No Lt Headedness, No Other Respiratory: No Cough, No Dry; Shortness of breath, SOB with excertion; No Wheezing, No Hemoptysis, No Pleuritic Pain, No Sputum, No Other Gastrointestinal: No Nausea, No Vomiting, No Abdominal Pain, No Diarrhea, No Constipation, No Melena, No Hematochezia, No Other Genitourinary: No Dysuria, No Frequency, No Incontinence, No Hematuria, No Retention, No Other Musculoskeletal: No other, No neck pain, No shoulder pain, No arm pain, No back pain, No hand pain, No leg pain, No foot pain Skin: No Rash, No Lesions, No Jaundice, No Bruising, No Other Objective Vitals Vital Signs Date Time Temp Pulse Resp B/P (MAP) Pulse Ox O2 Delivery O2 Flow Rate FiO2 03/22/25 09:00 97.5 82 19 126/87 (100) 92 97.5 03/22/25 08:00 Room Air* 0 21 Intake/Output Intake and Output 03/22/25 07:00 Intake Total 3400 ml Balance 3400 ml Intake Oral 3400 ml # Voids 7 # Bowel Movements 1 Medications Current Medications Medications Dose Ordered Sig/Silva Route Start Time Stop Time Status Last Admin Dose Admin Sodium Chloride 10 ml Q8HR IV 03/20/25 14:00 03/22/25 06:11 10 ML Acetaminophen/ Hydrocodone Bitart 1 tab Q4HP PRN PO 03/20/25 10:00 Ondansetron HCl 4 mg Q4HP PRN IV 03/20/25 10:00 Docusate Sodium 100 mg BIDPRN PRN PO 03/20/25 10:00 Acetaminophen 650 mg Q6HP PRN PO 03/20/25 10:00 Nitroglycerin 0.4 mg Q5MINP PRN SL 03/20/25 10:00 Morphine Sulfate 2 mg Q30M PRN IV 03/20/25 10:00 Aspirin 81 mg DAILY PO 03/20/25 10:23 03/22/25 08:35 81 MG Atorvastatin Calcium 40 mg HS PO 03/20/25 22:00 03/21/25 21:00 40 MG Empaglifozin 10 mg DAILY PO 03/20/25 10:26 03/22/25 08:35 10 MG Ipratropium [place] 0.5 mg Q4HPRN PRN NEB 03/20/25 10:00 03/20/25 12:46 0.5 MG Albuterol 2.5 mg Q4HPRN PRN NEB 03/20/25 10:00 03/20/25 12:46 2.5 MG Furosemide 20 mg BIDD IV 03/20/25 18:00 03/21/25 17:32 20 MG Carvedilol 6.25 mg BID PO 03/20/25 10:21 03/22/25 08:35 6.25 MG Laboratory Results Laboratory Tests 03/21/25 07:39 Urinalysis Test 03/20/25 04:34 Urine Color Light-yellow (Yellow) Urine Clarity Clear (Clear) Urine pH 5.5 (5.0-9.0) Urine Specific [place] 1.011 (1.001-1.035) Urine Protein Trace (Negative) H Urine Ketones Negative (Negative) Urine Blood Negative /uL (Negative) Urine Nitrite Negative (Negative) Urine Bilirubin Negative (Negative) Urine Urobilinogen Normal mg/dL (Negative) Urine Leukocyte Esterase Negative /uL (Negative) Urine RBC 4 /hpf (0 - 3) Urine Microscopic WBC 1 /HPF (0-3) Urine Squamous Epithelial Cells Few /hpf (<5) Urine Bacteria Few /hpf (None Seen) H Urine Glucose 3+ mg/dL (Normal) H Microbiology Microbiology Date/Time Source Procedure Growth Status 03/21/25 08:40 Nose MRSA Screen - Final Complete Labs and/or images reviewed: Labs reviewed by me, Image(s) reviewed by me Assessment/Plan Assessment/Plan Acute on chronic hypoxic respiratory failure Acute exacerbation of chronic systolic congestion heart failure ejection fraction 10% BNP 3200, consult for Cardiology , continue Laschuy Jarrashadance Coreg Acute COPD exacerbation Status post AICD CKD 3, Nephrology consult appreciated advised fluid restriction Hypertension Hypercholesterolemia Polysubstance abuse including methamphetamine: Counseling Time spent 46 minutes Patient is full code Advanced care planning time 20 minutes Plan discussed with: Patient My Orders Orders - RACHELE EARLY MD Procedure Category Date Status Time * Cardiology Consult CONS 03/21/25 Transmitted 12:21 *[facility] CONS 03/21/25 Transmitted -[place] 12:21 Date of Service: Mar 22, 2025 Billing Provider: RCAHELE EARLY MD Common Visit Codes: [id number] INP/OBS CARE(HIGH) RACHELE EARLY MD Mar 22, 2025 10:31
--- NOTE | 2025-03-22 13:51 | DVHPN2 ---
Progress Note Date Seen: Mar 22, 2025 Medical Necessity Reason Pt with a Central, PICC or Fol: No Subjective Patient reports: No new complaints Objective vital signs Vital Sign Date Time Temp Pulse Resp B/P (MAP) Pulse Ox O2 Delivery O2 Flow Rate FiO2 03/22/25 09:35 85 123/94 03/22/25 09:00 97.5 19 92 97.5 03/22/25 08:00 Room Air* 0 21 Total Intake and Output 03/21/25 03/21/25 03/22/25 15:00 23:00 07:00 Intake Total 2400 ml 1000 ml Balance 2400 ml 1000 ml medications Current Medications Medications Dose Ordered Sig/Silva Route Start Time Stop Time Status Last Admin Dose Admin Sodium Chloride 10 ml Q8HR IV 03/20/25 14:00 03/22/25 06:11 10 ML Acetaminophen/ Hydrocodone Bitart 1 tab Q4HP PRN PO 03/20/25 10:00 Ondansetron HCl 4 mg Q4HP PRN IV 03/20/25 10:00 Docusate Sodium 100 mg BIDPRN PRN PO 03/20/25 10:00 Acetaminophen 650 mg Q6HP PRN PO 03/20/25 10:00 Nitroglycerin 0.4 mg Q5MINP PRN SL 03/20/25 10:00 Morphine Sulfate 2 mg Q30M PRN IV 03/20/25 10:00 Aspirin 81 mg DAILY PO 03/20/25 10:23 03/22/25 08:35 81 MG Atorvastatin Calcium 40 mg HS PO 03/20/25 22:00 03/21/25 21:00 40 MG Empaglifozin 10 mg DAILY PO 03/20/25 10:26 03/22/25 08:35 10 MG Ipratropium [place] 0.5 mg Q4HPRN PRN NEB 03/20/25 10:00 03/20/25 12:46 0.5 MG Albuterol 2.5 mg Q4HPRN PRN NEB 03/20/25 10:00 03/20/25 12:46 2.5 MG Furosemide 20 mg BIDD IV 03/20/25 18:00 03/21/25 17:32 20 MG Carvedilol 6.25 mg BID PO 03/20/25 10:21 03/22/25 08:35 6.25 MG Examination: GENERAL:Normal, LUNGS:Abnormal, CVS:Abnormal laboratory and microbiology Laboratory Tests 03/21/25 07:39 Test 03/21/25 07:39 Range/Units Serum Glucose 92 74-106 mg/dL Microbiology Date/Time Source Procedure Growth Status 03/21/25 08:40 Nose MRSA Screen - Final Complete Problem List/Assessment/Plan Problem List/Assessment/Plan Acute kidney injury prerenal in the setting of volume overload Chronic kidney disease stage IIIB Cardiorenal syndrome Severe cardiomyopathy with ejection fraction of 10%., severe pulm htn Patient needs to adhere to fluid restriction recommend 32-40 oz per day 40 oz being the maximum per day. Patient currently now drinks approximately 3 L which i explained is excessive Lasix 40 b.i.d. Low-salt diet Fluid restriction cardiac meds ezra meyer can be given monitor UOP potassium replacement today Plan discussed with: Patient My Orders My Orders Orders - ANTHONY JACKSON MD Procedure Category Date Status Time Basic Metabolic Panel LAB 03/23/25 Verified 04:00 Potassium Er Tablet PHA 03/22/25 Transmitted (Klor-Con Tablet) 14:00 ANTHONY JACKSON MD Mar 22, 2025 13:51
[2025-03-22] MEDS: POTASSIUM CHL 20 Meq TABLET PO ONE (14:51)
--- NOTE | 2025-03-22 23:21 | DVHINCON2 ---
Date of service: Mar 22, 2025 Referring Physician Jason Reason for Consultation CHF, elevated troponin History of Present Illness This is a 59-year-old male with a PMH of CHF, CKF, COPD who was brought in by EMS presents with a complaint of worsening SOB that began several hours [employer]. Per EMS, they found patient sating at 70% on room air and placed patient on CPAP and was given a dual med breathing treatment. K 3.4, BUN 34, EXTENSION WORKER 2.09, CA 10.5, AST 73 ALT 49. Chest x-ray shows pulmonary vascular congestion. EKG shows tachycardia at 103. Patient was admitted to the hospital. I am asked to consult on this patient. Family History: Patient reports no known family medical history. Allergies: Coded Allergies: NO KNOWN ALLERGIES (Unverified , 06/15/15) Home Meds Active Scripts Ipratropium [place] Hfa (Atrovent Hfa) 17 Mcg Aer, 2 PUFF INH QID PRN for 30 Days, #12.9 GRAMS 0 Refills Prov:GEORGE RUSSELL 02/08/25 Reported Medications Furosemide (Furosemide) 40 Mg Tab, 1 TAB PO DAILY for 30 Days, #30 03/22/25 Sacubitril-Valsartan (Entresto 24-26 mg) 1 Tab Tab, 1 TAB PO DAILY for 33 Days, #30 03/20/25 Atorvastatin Calcium (Lipitor) 40 Mg Tab, 1 TAB PO DAILY, #30 TAB 5 Refills 03/20/25 Dapagliflozin Propanediol (Farxiga) 10 Mg Tab, 10 MG PO DAILY, TAB 03/20/25 Carvedilol (Carvedilol) 6.25 Mg Tab, 6.25 MG PO Q12HR, MG 03/20/25 Aspirin (Chewable Aspirin) 81 Mg Chw, 1 TAB PO DAILY 01/16/25 Discontinued Scripts Atorvastatin Calcium (ATORVASTATIN CALCIUM) 40 Mg Tab, 40 MG PO DAILY for 30 Days, #30 TAB 0 Refills Prov:GEORGE RUSSELL 02/08/25 Dapagliflozin Propanediol (Farxiga) 10 Mg Tab, 1 TAB PO DAILY for 30 Days, #30 TAB Prov:GEORGE RUSSELL 02/08/25 Carvedilol (Carvedilol) 6.25 Mg Tab, 1 TAB PO BID for 30 Days, #60 TAB Prov:GEORGE RUSSELL RESIDENT 02/08/25 Review of Systems Constitutional: denies: chills, diaphoresis, fatigue, fever, malaise, sweats, weakness, others EENTM: denies: blurred vision, double vision, ear bleeding, ear discharge, ear drainage, ear pain, ear ringing, eye pain, eye redness, hearing loss, mouth pain, mouth swelling, nasal discharge, nose bleeding, nose congestion, nose pain, photophobia, tearing, throat pain, throat swelling, voice changes, others Respiratory: reports: shortness of breath; denies: cough, hemoptysis, orthopnea, SOB at rest, SOB with excertion, stridor, wheezing, others Cardiovascular: denies: chest pain, dizzy spells, diaphoresis, Dyspnea on exertion, edema, irregular heart beat, left arm pain, lightheadedness, palpitations, PND, syncope, others Gastrointestinal: denies: abdomen distended, abdominal pain, blood streaked bowels, constipated, diarrhea, dysphagia, difficulty swallowing, hematemesis, melena, nausea, poor appetite, poor fluid intake, rectal bleeding, rectal pain, vomiting, others Genitourinary: denies: burning, dysuria, flank pain, frequency, hematuria, incontinence, penile discharge, penile sore, pain, testicle pain, testicle swe lling, urgency, others Neurological: denies: dizziness, fainting, headache, left sided numbness, left sided weakness, numbness, paresthesia, pre-existing deficit, right sided numbness, right sided weakness, seizure, speech problems, tingling, tremors, weakness, others Musculoskeletal: denies: back pain, gout, joint pain, joint swelling, muscle pain, muscle stiffness, neck pain, others Integumetry: denies: bruises, change in color, change in hair/nails, dryness, laceration, lesions, lumps, rash, wounds, others Allergic/Immunocompromised: denies: Difficulty Healing, Frequent Infections, Hives, Itching, others Hematologic/Lymphatic: denies: anemia, blood clots, easy bleeding, easy bruising, swollen glands, others Endocrine: denies: excessive hunger, excessive sweating, excessive thirst, excessive urination, flushing, intolerance to cold, intolerance to heat, unexplained weight gain, unexplained weight loss, others Psychiatric: denies: anxiety, bipolar disorder, depression, hopeless, panic disorder, schizophrenia, sleepless, suicidal, others All Other Systems: Reviewed and Negative Vital Signs Vital Signs Date Time Temp Pulse Resp B/P (MAP) Pulse Ox O2 Delivery O2 Flow Rate FiO2 03/22/25 13:00 98.5 85 17 123/94 (104) 98 98.5 03/22/25 08:00 Room Air* 0 21 Physical Exam GENERAL: Alert and oriented x 3. No acute distress. EYES: PERRL, EOMI. Anicteric. HENT: Moist mucous membranes. LUNGS: Coarse breath sounds. CARDIOVASCULAR: Regular rate and rhythm. ABDOMEN: Soft, non-tender and non-distended. EXTREMITIES: No edema. NEUROLOGIC: No focal neurological deficits. SKIN: Warm, dry. Labs/Diagnostic Data Labs Test 03/21/25 07:39 03/20/25 06:21 03/20/25 04:34 03/20/25 03:22 Range/Units White Blood Count 7.6 4.4-10.8 10^3/uL Red Blood Count 4.95 4.5-5.90 10^6/uL Hemoglobin 15.0 13.5-17.5 g/dL Hematocrit 44.5 41.0-53.0 % Mean Corpuscular Volume 90.0 80.0-100.0 fL Mean Corpuscular Hemoglobin 30.3 28.0-32.0 pg Mean Corpuscular Hemoglobin Concent 33.7 32.0-36.0 g/dL Red Cell Distribution Width 17.0 H 11.8-14.3 % Platelet Count 454 H 140-450 10^3/uL Mean Platelet Volume 8.4 6.9-10.8 fL Neutrophils (%) (Auto) 59.3 37.0-80.0 % Lymphocytes (%) (Auto) 27.0 10.0-50.0 % Monocytes (%) (Auto) 7.9 0.0-12.0 % Eosinophils (%) (Auto) 4.6 0.0-7.0 % Basophils (%) (Auto) 1.2 0.0-2.0 % Neutrophils # (Auto) 4.5 1.6-8.6 10 ^3/uL Lymphocytes # (Auto) 2.0 0.4-5.4 10 ^3/uL Monocytes # (Auto) 0.6 0-1.3 10 ^3/uL Eosinophils # (Auto) 0.3 0-0.8 10 ^3/uL Basophils # (Auto) 0.1 0-0.2 10 ^3/uL Nucleated Red Blood Cells 0.1 % Sodium Level 138 136-145 mmol/L Potassium Level 3.4 L 3.5-5.1 mmol/L Chloride Level 101 98-107 mmol/L Carbon Dioxide Level 26 20-31 mmol/L Anion Gap 11 5-15 Blood Urea Nitrogen 34 H 9-23 mg/dL Creatinine 2.09 H 0.700-1.30 mg/dL Glomerular Filtration Rate Calc 36 >90 mL/min BUN/Creatinine Ratio 16.3 10.0-20.0 Serum Glucose 92 74-106 mg/dL Calcium Level 10.5 H 8.7-10.4 mg/dL Total Bilirubin 1.5 H 0.2-1.0 mg/dL Aspartate Amino Transferase (AST) 73 H 13-40 U/L Alanine Aminotransferase (ALT) 49 H 7-40 U/L Alkaline Phosphatase 84 46-116 U/L Total Protein 7.0 5.7-8.2 g/dL Albumin 4.1 3.2-4.8 g/dL Troponin I High Sensitivity 51 </=54 ng/L Urine Color Light-yellow Yellow Urine Clarity Clear Clear Urine pH 5.5 5.0-9.0 Urine Specific [place] 1.011 1.001-1.035 Urine Protein Trace H Negative Urine Ketones Negative Negative Urine Blood Negative Negative /uL Urine Nitrite Negative Negative Urine Bilirubin Negative Negative Urine Urobilinogen Normal Negative mg/dL Urine Leukocyte Esterase Negative Negative /uL Urine RBC 4 0 - 3 /hpf Urine Microscopic WBC 1 0-3 /HPF Urine Squamous Epithelial Cells Few <5 /hpf Urine Bacteria Few H None Seen /hpf Urine Glucose 3+ H Normal mg/dL Urine Opiates Screen Neg NEGATIVE Urine Fentanyl Screen Neg NEGATIVE Urine Barbiturates Screen Neg NEGATIVE Urine Phencyclidine Screen Neg NEGATIVE Urine Amphetamines Screen Pos NEGATIVE Urine Benzodiazepines Screen Neg NEGATIVE Urine Cocaine Screen Neg NEGATIVE Urine Cannabinoids Screen Pos NEGATIVE B-Type Natriuretic Peptide 3204.81 0-100 pg/mL Test 03/20/25 03:04 Range/Units Blood Gas Specimen Type Arterial Blood Gas Sample Site Right radial Blood Gas Patient Temperature 37.0 Arterial Blood Date Drawn [id number] Arterial Blood pH 7.502 H 7.350-7.450 Arterial Blood Partial Pressure CO2 25.9 L 35.0-48.0 mmHg Arterial Blood Partial Pressure O2 129.7 H 83.0-108.0 mmHg Arterial Blood HCO3 19.8 L 21.0-28.0 mmol/L Arterial Blood Oxygen Saturation 98.7 H 94.0-98.0 % Arterial Blood Base Excess -1.6 -2.0-3.0 mmol/L Arterial Blood Oxyhemoglobin 97.9 94.0-98.0 % Arterial Blood Carboxyhemoglobin 0.3 L 0.5-1.5 % Arterial Blood Methemoglobin 0.5 0.0-1.5 % Eduardo Test Positive Blood Gas Total Hemoglobin 14.90 13.5-17.5 g/dL Blood Gas Liter Flow 4.00 Blood Gas Modality Nasal cannula Blood Gas Spontaneous Rate 27 FiO2 % 36.0 [facility] Microbiology Date/Time Source Procedure Growth Status 03/21/25 08:40 Nose MRSA Screen - Final Complete Assessment Acute on chronic hypoxic respiratory failure. Acute exacerbation of chronic systolic congestion heart failure ejection fraction 10%. Acute COPD exacerbation. Status post AICD . CKD 3. Hypertension. Hypercholesterolemia. Polysubstance abuse. Plan/Recommendation I agree with your ongoing assessment and care of plan. Telemetry reviewed. Morphine and [place] for pain management. Aspirin, Lipitor. Coreg. Diuretics with Lasix. Nitro SL. Additional plan as per the hospital course. A total of 45 minutes was spent reviewing the patient record, examining the patient, making a diagnostic and therapeutic plan, discussing this plan with medical personnel, following up on diagnostic studies and following the patient for clinical stability excluding any and all procedures. At least 50% of this time was spent in direct, [id number] contact. Plan discussed with: Patient MIRIAM BAXTER MD Mar 22, 2025 15:20
[2025-03-23 02:45] VITALS: O2SAT 97
[2025-03-23 05:00] VITALS: BP 131/99; PULSE 84; RESP 18; TEMP 98.1; O2SAT 99
[2025-03-23 07:44] LABS: Anion Gap 9 (5-15); Carbon Dioxide 25 mmol/L (20-31); Chloride 106 mmol/L (98-107); Potassium 4.2 mmol/L (3.5-5.1); Sodium 140 mmol/L (136-145)
[2025-03-23 07:45] LABS: Calcium 10.2 mg/dL (8.7-10.4)
[2025-03-23 07:50] LABS: Blood Urea Nitrogen 37 mg/dL (9-23); Glucose 121 mg/dL (74-106)
[2025-03-23 08:00] VITALS: PULSE 83
[2025-03-23 09:00] VITALS: BP 120/97; PULSE 52; RESP 20; TEMP 98.3; O2SAT 100
--- NOTE | 2025-03-23 10:41 | DVHPN2 ---
Progress Note Date Seen: Mar 23, 2025 Medical Necessity Reason Pt with a Central, PICC or Fol: No Subjective Patient reports: Feels better Objective vital signs Vital Sign Date Time Temp Pulse Resp B/P (MAP) Pulse Ox O2 Delivery O2 Flow Rate FiO2 03/23/25 09:35 80 120/97 03/23/25 09:00 98.3 20 100 98.3 03/23/25 08:00 Room Air* 0 21 Total Intake and Output 03/22/25 03/22/25 03/23/25 15:00 23:00 07:00 Intake Total 450 ml 1100 ml Balance 450 ml 1100 ml medications Current Medications Medications Dose Ordered Sig/Silva Route Start Time Stop Time Status Last Admin Dose Admin Sodium Chloride 10 ml Q8HR IV 03/20/25 14:00 03/23/25 05:21 10 ML Acetaminophen/ Hydrocodone Bitart 1 tab Q4HP PRN PO 03/20/25 10:00 Ondansetron HCl 4 mg Q4HP PRN IV 03/20/25 10:00 Docusate Sodium 100 mg BIDPRN PRN PO 03/20/25 10:00 Acetaminophen 650 mg Q6HP PRN PO 03/20/25 10:00 Nitroglycerin 0.4 mg Q5MINP PRN SL 03/20/25 10:00 Morphine Sulfate 2 mg Q30M PRN IV 03/20/25 10:00 Aspirin 81 mg DAILY PO 03/20/25 10:23 03/23/25 09:35 81 MG Atorvastatin Calcium 40 mg HS PO 03/20/25 22:00 03/22/25 21:19 40 MG Empaglifozin 10 mg DAILY PO 03/20/25 10:26 03/23/25 09:35 10 MG Ipratropium [place] 0.5 mg Q4HPRN PRN NEB 03/20/25 10:00 03/20/25 12:46 0.5 MG Albuterol 2.5 mg Q4HPRN PRN NEB 03/20/25 10:00 03/20/25 12:46 2.5 MG Furosemide 20 mg BIDD IV 03/20/25 18:00 03/21/25 17:32 20 MG Carvedilol 6.25 mg BID PO 03/20/25 10:21 03/23/25 09:35 6.25 MG Examination: GENERAL:Normal, CVS:Normal laboratory and microbiology Laboratory Tests 03/23/25 06:58 03/21/25 07:39 Test 03/23/25 06:58 Range/Units Serum Glucose 121 H 74-106 mg/dL Microbiology Date/Time Source Procedure Growth Status 03/21/25 08:40 Nose MRSA Screen - Final Complete Problem List/Assessment/Plan Problem List/Assessment/Plan Acute kidney injury prerenal in the setting of volume overload Chronic kidney disease stage IIIB Cardiorenal syndrome Severe cardiomyopathy with ejection fraction of 10%., severe pulm htn Patient needs to adhere to fluid restriction recommend 32-40 oz per day 40 oz being the maximum per day. Patient currently now drinks approximately 3 L which i explained is excessive Lasix 40 b.i.d. Low-salt diet Fluid restriction cardiac meds ezra meyer can be given monitor UOP improved from renal standpoint Plan discussed with: Patient ANTHONY JACKSON MD Mar 23, 2025 10:41
--- NOTE | 2025-03-23 11:55 | DVHPN2 ---
Reviewed: Care Plan, H&P, Labs, Medications, Previous Orders, Radiology Changes from previous H/P or p: No Changes Eyes: No Pain, No Vision change, No Conjunctivae inflammation, No Eyelid inflammation, No Other, No Redness ENT: No Ear pain, No Ear discharge, No Nose pain, No Nose discharge, No Nose congestion, No Mouth pain, No Mouth swelling, No Throat pain, No Throat swelling, No Other Cardiovascular: No Chest Pain, No Palpitations, No Orthopnea, No Paroxysmal Noc. Dyspnea, No Edema, No Lt Headedness, No Other Respiratory: No Cough, No Dry; Shortness of breath, SOB with excertion; No Wheezing, No Hemoptysis, No Pleuritic Pain, No Sputum, No Other Gastrointestinal: No Nausea, No Vomiting, No Abdominal Pain, No Diarrhea, No Constipation, No Melena, No Hematochezia, No Other Genitourinary: No Dysuria, No Frequency, No Incontinence, No Hematuria, No Retention, No Other Musculoskeletal: No other, No neck pain, No shoulder pain, No arm pain, No back pain, No hand pain, No leg pain, No foot pain Skin: No Rash, No Lesions, No Jaundice, No Bruising, No Other Objective Vitals Vital Signs Date Time Temp Pulse Resp B/P (MAP) Pulse Ox O2 Delivery O2 Flow Rate FiO2 03/23/25 09:35 80 120/97 03/23/25 09:00 98.3 20 100 98.3 03/23/25 08:00 Room Air* 0 21 Intake/Output Intake and Output 03/23/25 07:00 Intake Total 1550 ml Balance 1550 ml Intake Oral 1550 ml # Voids 8 # Bowel Movements 3 Medications Current Medications Medications Dose Ordered Sig/Silva Route Start Time Stop Time Status Last Admin Dose Admin Sodium Chloride 10 ml Q8HR IV 03/20/25 14:00 03/23/25 05:21 10 ML Acetaminophen/ Hydrocodone Bitart 1 tab Q4HP PRN PO 03/20/25 10:00 Ondansetron HCl 4 mg Q4HP PRN IV 03/20/25 10:00 Docusate Sodium 100 mg BIDPRN PRN PO 03/20/25 10:00 Acetaminophen 650 mg Q6HP PRN PO 03/20/25 10:00 Nitroglycerin 0.4 mg Q5MINP PRN SL 03/20/25 10:00 Morphine Sulfate 2 mg Q30M PRN IV 03/20/25 10:00 Aspirin 81 mg DAILY PO 03/20/25 10:23 03/23/25 09:35 81 MG Atorvastatin Calcium 40 mg HS PO 03/20/25 22:00 03/22/25 21:19 40 MG Empaglifozin 10 mg DAILY PO 03/20/25 10:26 03/23/25 09:35 10 MG Ipratropium [place] 0.5 mg Q4HPRN PRN NEB 03/20/25 10:00 03/20/25 12:46 0.5 MG Albuterol 2.5 mg Q4HPRN PRN NEB 03/20/25 10:00 03/20/25 12:46 2.5 MG Furosemide 20 mg BIDD IV 03/20/25 18:00 03/21/25 17:32 20 MG Carvedilol 6.25 mg BID PO 03/20/25 10:21 03/23/25 09:35 6.25 MG Laboratory Results Laboratory Tests 03/21/25 07:39 03/23/25 06:58 Chemistry Test 03/23/25 06:58 Calcium Level 10.2 mg/dL (8.7-10.4) Urinalysis Test 03/20/25 04:34 Urine Color Light-yellow (Yellow) Urine Clarity Clear (Clear) Urine pH 5.5 (5.0-9.0) Urine Specific [place] 1.011 (1.001-1.035) Urine Protein Trace (Negative) H Urine Ketones Negative (Negative) Urine Blood Negative /uL (Negative) Urine Nitrite Negative (Negative) Urine Bilirubin Negative (Negative) Urine Urobilinogen Normal mg/dL (Negative) Urine Leukocyte Esterase Negative /uL (Negative) Urine RBC 4 /hpf (0 - 3) Urine Microscopic WBC 1 /HPF (0-3) Urine Squamous Epithelial Cells Few /hpf (<5) Urine Bacteria Few /hpf (None Seen) H Urine Glucose 3+ mg/dL (Normal) H Microbiology Microbiology Date/Time Source Procedure Growth Status 03/21/25 08:40 Nose MRSA Screen - Final Complete Labs and/or images reviewed: Labs reviewed by me, Image(s) reviewed by me Assessment/Plan Assessment/Plan Acute on chronic hypoxic respiratory failure Acute exacerbation of chronic systolic congestion heart failure ejection fraction 10% BNP 3200, consult for Cardiology appreciated, continue Lasix Jardiance Coreg Acute COPD exacerbation Status post AICD CKD 3, Nephrology consult appreciated advised fluid restriction Hypertension Hypercholesterolemia Polysubstance abuse including methamphetamine: Counseling Time spent 46 minutes Patient is full code Advanced care planning time 20 minutes Plan discussed with: Patient My Orders Orders - RACHELE EARLY MD Procedure Category Date Status Time *Consult CONS 03/22/[address]Mukeshchandra Garcia 14:59 Date of Service: Mar 23, 2025 Billing Provider: RACHELE EARLY MD Common Visit Codes: [id number] INP/OBS CARE(HIGH) RACHELE EARLY MD Mar 23, 2025 11:55
[2025-03-23] MEDS ORDERED: CARV6.2517 PO (11:57)
[2025-03-23] MEDS ORDERED: FURO1TAB31 PO (11:57)
[2025-03-23] MEDS ORDERED: EMPA1TAB PO (11:57)
--- NOTE | 2025-03-23 12:01 | DVHDS2 ---
Discharge Summary Date of Admission Mar 20, 2025 at 09:53 Date of Discharge: Mar 23, 2025 Admitting Diagnosis Shortness of breath Wounds: None Labs/Diagnostic Data: Laboratory Results Test 03/23/25 06:58 03/21/25 07:39 03/20/25 06:21 03/20/25 04:34 Sodium Level 140 mmol/L (136-145) Potassium Level 4.2 mmol/L (3.5-5.1) Chloride Level 106 mmol/L (98-107) Carbon Dioxide Level 25 mmol/L (20-31) Anion Gap 9 (5-15) Blood Urea Nitrogen 37 mg/dL (9-23) Creatinine 1.85 mg/dL (0.700-1.30) Glomerular Filtration Rate Calc 42 mL/min (>90) BUN/Creatinine Ratio 20.0 (10.0-20.0) Serum Glucose 121 mg/dL (74-106) Calcium Level 10.2 mg/dL (8.7-10.4) White Blood Count 7.6 10^3/uL (4.4-10.8) Red Blood Count 4.95 10^6/uL (4.5-5.90) Hemoglobin 15.0 g/dL (13.5-17.5) Hematocrit 44.5 % (41.0-53.0) Mean Corpuscular Volume 90.0 fL (80.0-100.0) Mean Corpuscular Hemoglobin 30.3 pg (28.0-32.0) Mean Corpuscular Hemoglobin Concent 33.7 g/dL (32.0-36.0) Red Cell Distribution Width 17.0 % (11.8-14.3) Platelet Count 454 10^3/uL (140-450) Mean Platelet Volume 8.4 fL (6.9-10.8) Neutrophils (%) (Auto) 59.3 % (37.0-80.0) Lymphocytes (%) (Auto) 27.0 % (10.0-50.0) Monocytes (%) (Auto) 7.9 % (0.0-12.0) Eosinophils (%) (Auto) 4.6 % (0.0-7.0) Basophils (%) (Auto) 1.2 % (0.0-2.0) Neutrophils # (Auto) 4.5 10 ^3/uL (1.6-8.6) Lymphocytes # (Auto) 2.0 10 ^3/uL (0.4-5.4) Monocytes # (Auto) 0.6 10 ^3/uL (0-1.3) Eosinophils # (Auto) 0.3 10 ^3/uL (0-0.8) Basophils # (Auto) 0.1 10 ^3/uL (0-0.2) Nucleated Red Blood Cells 0.1 % Total Bilirubin 1.5 mg/dL (0.2-1.0) Aspartate Amino Transferase (AST) 73 U/L (13-40) Alanine Aminotransferase (ALT) 49 U/L (7-40) Alkaline Phosphatase 84 U/L (46-116) Total Protein 7.0 g/dL (5.7-8.2) Albumin 4.1 g/dL (3.2-4.8) Troponin I High Sensitivity 51 ng/L (</=54) Urine Color Light-yellow (Yellow) Urine Clarity Clear (Clear) Urine pH 5.5 (5.0-9.0) Urine Specific [place] 1.011 (1.001-1.035) Urine Protein Trace (Negative) Urine Ketones Negative (Negative) Urine Blood Negative /uL (Negative) Urine Nitrite Negative (Negative) Urine Bilirubin Negative (Negative) Urine Urobilinogen Normal mg/dL (Negative) Urine Leukocyte Esterase Negative /uL (Negative) Urine RBC 4 /hpf (0 - 3) Urine Microscopic WBC 1 /HPF (0-3) Urine Squamous Epithelial Cells Few /hpf (<5) Urine Bacteria Few /hpf (None Seen) Urine Glucose 3+ mg/dL (Normal) Urine Opiates Screen Neg (NEGATIVE) Urine Fentanyl Screen Neg (NEGATIVE) Urine Barbiturates Screen Neg (NEGATIVE) Urine Phencyclidine Screen Neg (NEGATIVE) Urine Amphetamines Screen Pos (NEGATIVE) Urine Benzodiazepines Screen Neg (NEGATIVE) Urine Cocaine Screen Neg (NEGATIVE) Urine Cannabinoids Screen Pos (NEGATIVE) Test 03/20/25 03:22 03/20/25 03:04 B-Type Natriuretic Peptide 3204.81 pg/mL (0-100) Blood Gas Specimen Type Arterial Blood Gas Sample Site Right radial Blood Gas Patient Temperature 37.0 Arterial Blood Date Drawn [id number] Arterial Blood pH 7.502 (7.350-7.450) Arterial Blood Partial Pressure CO2 25.9 mmHg (35.0-48.0) Arterial Blood Partial Pressure O2 129.7 mmHg (83.0-108.0) Arterial Blood HCO3 19.8 mmol/L (21.0-28.0) Arterial Blood Oxygen Saturation 98.7 % (94.0-98.0) Arterial Blood Base Excess -1.6 mmol/L (-2.0-3.0) Arterial Blood Oxyhemoglobin 97.9 % (94.0-98.0) Arterial Blood Carboxyhemoglobin 0.3 % (0.5-1.5) Arterial Blood Methemoglobin 0.5 % (0.0-1.5) Eduardo Test Positive Blood Gas Total Hemoglobin 14.90 g/dL (13.5-17.5) Blood Gas Liter Flow 4.00 Blood Gas Modality Nasal cannula Blood Gas Spontaneous Rate 27 FiO2 % 36.0 Specimen Drawn By jr rt Other Laboratory Tests 03/23/25 06:58 03/21/25 07:39 Brief Hx & Hospital Course: 72-year-old male with a history of severe systolic congestive heart failure ejection fraction 10 percent secondary to methamphetamine abuse came in for shortness of breaths. BNP was 3 200 treated with the Lasix Coreg Jardiance Entresto seen by Cardiology Dr. Cutler patient has a AICD comorbid conditions include hypertension hypercholesterolemia seen by Nephrology for CKD three advised fluid restriction patient feels better and on room air and wants to go home. Discharged home. He was later stop using methamphetamine and continue all his home medications and follow up with the primary Dr and stock wetter. Medications transmitted to the pharmacy. Consults/Reason for consult Cardiology Dr. Cutler Operations or Procedures Echocardiogram Condition at Discharge: Fair Final Diagnosis/Problems List Acute on chronic hypoxic respiratory failure Acute exacerbation of chronic systolic congestion heart failure ejection fraction 10% BNP 3200, consult for Cardiology appreciated, continue Lasix Jardiance Coreg Acute COPD exacerbation Status post AICD CKD 3, Nephrology consult appreciated advised fluid restriction Hypertension Hypercholesterolemia Polysubstance abuse including methamphetamine: Counseling Discharge Disposition: Home Discharge Instruct/Medications Diet: Cardiac 2g Na,low cholest Activity: Light activity Follow Up/Referral: Follow up with the primary Dr and stock wetter Stop using methamphetamine Resume all previous home medications Medications: Lasix Jardiance Coreg Transmitted to pharmacy Reviewed all other home medications 35 (Time taken for discharge summary 35 minutes) Discharge Statement: "Patient was advised to return to the ER or call 911 if any headaches, dizziness, shortness of breath, chest pain, abdominal pain, bleeding, fevers, or worsening of medical condition. Patient was counseled about treatment plan, medications, possible side effects, patientverbalized understanding. All questions were answered to the best of my ability. This discharge took greater then 30 minutes in planning, reviewing documentation, counseling the patient, and discussing with other team members." ASSESSMENT ASSESSMENT Assessment Acute on chronic hypoxic respiratory failure Acute exacerbation of chronic systolic congestion heart failure ejection fraction 10% BNP 3200, consult for Cardiology appreciated, continue Alem Altamiranoance Coreg Acute COPD exacerbation Status post AICD CKD 3, Nephrology consult appreciated advised fluid restriction Hypertension Hypercholesterolemia Polysubstance abuse including methamphetamine: Counseling Date of Service: Mar 23, 2025 Billing Provider: RACHELE EARLY MD Common Visit Codes: 88426-[facility]/OBS DISCH DAY >30min RACHELE EARLY MD Mar 23, 2025 12:01
[2025-03-23 12:25] VITALS: BP 120/97; PULSE 80
[2025-03-23 12:49] VITALS: BP 112/76; PULSE 71; RESP 20; TEMP 98.7; O2SAT 100
--- NOTE | 2025-03-23 21:16 | DVHPN2 ---
Progress Note - Dictate Date Seen: Mar 23, 2025 Medical Necessity Reason Pt with a Central, PICC or Fol: No Subjective Patient was seen and evaluated in follow up. Patient has no new complaints at this time. Patient denies any cardiac symptoms. Patient is cardiac stable for discharge. Telemetry reviewed. vital signs Vital Sign Date Time Temp Pulse Resp B/P (MAP) Pulse Ox O2 Delivery O2 Flow Rate FiO2 03/23/25 12:49 98.7 71 20 112/76 (88) 100 98.7 03/23/25 08:00 Room Air* 0 21 Total Intake and Output 03/22/25 03/22/25 03/23/25 15:00 23:00 07:00 Intake Total 450 ml 1100 ml Balance 450 ml 1100 ml medications Current Medications Medications Dose Ordered Sig/Silva Route Start Time Stop Time Status Last Admin Dose Admin Sodium Chloride 10 ml Q8HR IV 03/20/25 14:00 03/23/25 05:21 10 ML Acetaminophen/ Hydrocodone Bitart 1 tab Q4HP PRN PO 03/20/25 10:00 Ondansetron HCl 4 mg Q4HP PRN IV 03/20/25 10:00 Docusate Sodium 100 mg BIDPRN PRN PO 03/20/25 10:00 Acetaminophen 650 mg Q6HP PRN PO 03/20/25 10:00 Nitroglycerin 0.4 mg Q5MINP PRN SL 03/20/25 10:00 Morphine Sulfate 2 mg Q30M PRN IV 03/20/25 10:00 Aspirin 81 mg DAILY PO 03/20/25 10:23 03/23/25 09:35 81 MG Atorvastatin Calcium 40 mg HS PO 03/20/25 22:00 03/22/25 21:19 40 MG Empaglifozin 10 mg DAILY PO 03/20/25 10:26 03/23/25 09:35 10 MG Ipratropium [place] 0.5 mg Q4HPRN PRN NEB 03/20/25 10:00 03/20/25 12:46 0.5 MG Albuterol 2.5 mg Q4HPRN PRN NEB 03/20/25 10:00 03/20/25 12:46 2.5 MG Furosemide 20 mg BIDD IV 03/20/25 18:00 03/21/25 17:32 20 MG Carvedilol 6.25 mg BID PO 03/20/25 10:21 03/23/25 09:35 6.25 MG objective GENERAL: Alert and oriented x 3. No acute distress. EYES: PERRL, EOMI. Anicteric. HENT: Moist mucous membranes. LUNGS: Coarse breath sounds. CARDIOVASCULAR: Regular rate and rhythm. ABDOMEN: Soft, non-tender and non-distended. EXTREMITIES: No edema. NEUROLOGIC: No focal neurological deficits. SKIN: Warm, dry. laboratory and microbiology Laboratory Tests 03/23/25 06:58 03/21/25 07:39 Test 03/23/25 06:58 Range/Units Serum Glucose 121 H 74-106 mg/dL Problem List Acute on chronic hypoxic respiratory failure. Acute exacerbation of chronic systolic congestion heart failure ejection fraction 10%. Acute COPD exacerbation. Status post AICD . CKD 3. Hypertension. Hypercholesterolemia. Polysubstance abuse. Assessment/Plan Continued all current supportive medical care. Morphine and [place] for pain management. Aspirin, Lipitor. Coreg. Diuretics with Lasix. Nitro SL. Additional plan as per the hospital course. Plan discussed with: Patient MIRIAM BAXTER MD Mar 23, 2025 13:10
== END 2025-03-23 13:31 | disposition home or self-care (01) | DRG 133 ==
LOC: EDBD 02:53 → ER 02:53 → OVERFLOW 09:53 → TELE-WESTW 21:23
PROVIDERS: ADMIT Family Medicine; ATTEND Family Medicine
DX: J96.21 Acute and chronic respiratory failure with hypoxia (principal); I50.23 Acute on chronic systolic (congestive) heart failure; N17.9 Acute kidney failure, unspecified; I42.9 Cardiomyopathy, unspecified; J44.1 Chronic obstructive pulmonary disease with (acute) exacerbation; I13.0 Hypertensive heart and chronic kidney disease with heart failure and stage 1 through stage 4 chronic kidney disease, or unspecified chronic kidney disease; G47.30 Sleep apnea, unspecified; E78.00 Pure hypercholesterolemia, unspecified; F12.10 Cannabis abuse, uncomplicated; F15.10 Other stimulant abuse, uncomplicated; N18.32 Chronic kidney disease, stage 3b; Z95.810 Presence of automatic (implantable) cardiac defibrillator; Z79.899 Other long term (current) drug therapy; Z79.82 Long term (current) use of aspirin; Z87.891 Personal history of nicotine dependence; Z71.51 Drug abuse counseling and surveillance of drug abuser
CPT/HCPCS: 36415; 36600; 71045; 80048; 80053; 80307; 81001; 82805; 83880; 84484; 85025; 87081; 93005; 94640; 99291; G0378

== ENCOUNTER 2025-06-01 09:07 | Emergency (ER) | payer MEDICAID ==
[~2025-06-01] VITALS: Ht 170.2 cm; Wt 75.7 kg
[~2025-06-01 09:07] MED LIST changes: +ATOR-507 PO; -ATOR40TA52 PO; +CARV6.2517 PO; +EMPA1TAB PO
--- NOTE | 2025-06-01 09:36 | ED.PDOC ---
General HPI Comments 59 year old male with a Hx of CHF, DM, AKD and a Pacemaker presents to the ED for the c/c of right sided pelvic pain. Pt states that he has a Right inguinal hernia, and has not had a BM for the past 2 and 1/2 days. Pt notes that he does not have any alleviating factors at this time. Pt also notes of Marijuana use. No other associated symptoms, modifiers, recent injuries or sick contacts present at this time. Chief Complaint: Pelvic Pain Time Seen by MD: 09:32 Primary Care Provider: FRANCEIES Reviewed notes: Nurses Notes, Medications, Allergies Allergies: Coded Allergies: NO KNOWN ALLERGIES (Unverified , 06/15/15) Home Meds Active Scripts Empagliflozin (Jardiance) 10 Mg Tab, 10 MG PO DAILY, #30 TAB Prov:RACHELE EARLY MD 03/23/25 Carvedilol (Coreg) 6.25 Mg Tab, 1 TAB PO BID, #180 TAB 1 Refill Prov:RACHELE EARLY MD 03/23/25 Furosemide (Lasix) 40 Mg Tab, 40 MG PO DAILY, #90 TAB Prov:RACHELE EARLY MD 03/23/25 Ipratropium [place] Hfa (Atrovent Hfa) 17 Mcg Aer, 2 PUFF INH QID PRN for 30 Days, #12.9 GRAMS 0 Refills Prov:GEORGE RUSSELL RESIDENT 02/08/25 Reported Medications Furosemide (Furosemide) 40 Mg Tab, 1 TAB PO DAILY for 30 Days, #30 03/22/25 Sacubitril-Valsartan (Entresto 24-26 mg) 1 Tab Tab, 1 TAB PO DAILY for 33 Days, #30 03/20/25 Atorvastatin Calcium (Lipitor) 40 Mg Tab, 1 TAB PO DAILY, #30 TAB 5 Refills 03/20/25 Dapagliflozin Propanediol (Farxiga) 10 Mg Tab, 10 MG PO DAILY, TAB 03/20/25 Carvedilol (Carvedilol) 6.25 Mg Tab, 6.25 MG PO Q12HR, MG 03/20/25 Aspirin (Chewable Aspirin) 81 Mg Chw, 1 TAB PO DAILY 01/16/25 Information Source: Patient Mode of Arrival: Ambulatory Severity: Moderate Inability to void: Complete Timing: Days Duration: Since onset, Days Has not urinated for: Hours Prehospital treatment: None Onset: Other Symptoms: Inability to void History of: None Location: None Penile discharge: None Modifying factors: None associated signs and symptoms: Abdominal Pain, Inability to Void Past Medical History PAST MEDICAL HISTORY: CHF, CKF, COPD Surgical History: Pacemaker Family History Family History: Reviewed,noncontributory to illness Social History Smoker: Quit Greater Than 1 Year, Cigarettes Alcohol: Denies ETOH Use Drugs: Marijuana Lives In: Home Constitutional: denies: chills, diaphoresis, fatigue, fever, malaise, sweats, weakness, others EENTM: denies: blurred vision, double vision, ear bleeding, ear discharge, ear drainage, ear pain, ear ringing, eye pain, eye redness, hearing loss, mouth pain, mouth swelling, nasal discharge, nose bleeding, nose congestion, nose p ain, photophobia, tearing, throat pain, throat swelling, voice changes, others Respiratory: denies: cough, hemoptysis, orthopnea, SOB at rest, shortness of breath, SOB with excertion, stridor, wheezing, others Cardiovascular: denies: chest pain, dizzy spells, diaphoresis, Dyspnea on exertion, edema, irregular heart beat, left arm pain, lightheadedness, palpitations, PND, syncope, others Gastrointestinal: denies: abdomen distended, abdominal pain, blood streaked bowels, constipated, diarrhea, dysphagia, difficulty swallowing, hematemesis, melena, nausea, poor appetite, poor fluid intake, rectal bleeding, rectal pain, vomiting, others Genitourinary: reports: others (Pelvic pain); denies: burning, dysuria, flank pain, frequency, hematuria, incontinence, penile discharge, penile sore, pain, testicle pain, testicle swelling, urgency Neurological: denies: dizziness, fainting, headache, left sided numbness, left sided weakness, numbness, paresthesia, pre-existing deficit, right sided numbness, right sided weakness, seizure, speech problems, tingling, tremors, weakness, others Musculoskeletal: denies: back pain, gout, joint pain, joint swelling, muscle pain, muscle stiffness, neck pain, others Integumetry: denies: bruises, change in color, change in hair/nails, dryness, laceration, lesions, lumps, rash, wounds, others Allergic/Immunocompromised: denies: Difficulty Healing, Frequent Infections, Hives, Itching, others Hematologic/Lymphatic: denies: anemia, blood clots, easy bleeding, easy bruising, swollen glands, others Endocrine: denies: excessive hunger, excessive sweating, excessive thirst, excessive urination, flushing, intolerance to cold, intolerance to heat, unexplained weight gain, unexplained weight loss, others Psychiatric: denies: anxiety, bipolar disorder, depression, hopeless, panic disorder, schizophrenia, sleepless, suicidal, others All Other Systems: Reviewed and Negative Physical Exam General Appearance: Moderate Distress, Normal HEENT: Normal ENT Inspection, Pharynx Normal, TMs Normal Neck: Full Range of Motion, Non-Tender, Normal, Normal Inspection Respiratory: Chest Non-Tender, Lungs Clear, No Accessory Muscle Use, No Respiratory Distress, Normal Breath Sounds Cardiovascular: No Edema, No JVD, No Murmur, No Gallop, Normal Peripheral Pulses, Regular Rate/Rhythm Breast Exam: Deferred Gastrointestinal: No Organomegaly, Non Tender, No Pulsatile Mass, Normal Bowel Sounds, Soft Genitalia: Deferred Pelvic: Deferred Rectal: Deferred Extremities: No calf tenderness, Normal capillary refill, Normal inspection, Normal range of motion, Non-tender, No pedal edema Musculoskeletal : Apperance: Normal Neurologic: Alert, pathology tech II-XII nml as Tested, No Motor Deficits, Normal Affect, Normal Mood, No Sensory Deficits Cerebellar Function: Normal Reflexes: Normal Skin: Dry, Normal Color, Warm Peripheral Pulses: 3+ Radial (R), 3+ Radial (L) Lymphatic: No Adenopathy Was a procedure done? Was a procedure done?: No Differential Diagnosis Kidney stone (Female): Musculoskeletal pain, Urinary obstruction, Urolithiasis Kidney stone (Male): Bowel obstruction, Cholelithiasis, Cholangitis, Pancreatitis, Pyelonephritis, Strain, Urinary obstruction, Renal infarction, Urinary tract infection Penile/Scrotal: Epidiymitis, Foreign Body, Prostatitis, UTI, Hydrocele, Urolithiasis, Urinary Retention Urinary Problem (Male): Bladder Outlet, Bladder Obstruction, Epididymitis, Prostatitis, Plelonephritis, Urinary Retention, Urolithiasis, UTI X-Ray, Labs, Meds, VS Vital Signs Date Time Temp Pulse Resp B/P (MAP) Pulse Ox O2 Delivery O2 Flow Rate FiO2 06/01/25 09:46 55 13 98 Room Air* 0 21 06/01/25 09:44 98.2 55 20 137/105 (116) 98 98.2 06/01/25 09:44 55 20 98 Room Air 06/01/25 09:17 98.2 66 16 143/92 (109) 98 98.2 Lab Test 06/01/25 09:47 06/01/25 09:45 Range/Units Urine Color Pending Urine Clarity Pending Urine pH Pending Urine Specific [place] Pending Urine Protein Pending Urine Ketones Pending Urine Blood Pending Urine Nitrite Pending Urine Bilirubin Pending Urine Urobilinogen Pending Urine Leukocyte Esterase Pending Urine RBC Pending Urine Microscopic WBC Pending Urine Squamous Epithelial Cells Pending Urine Bacteria Pending Urine Glucose Pending White Blood Count 8.0 4.4-10.8 10^3/uL Red Blood Count 5.11 4.5-5.90 10^6/uL Hemoglobin 15.8 13.5-17.5 g/dL Hematocrit 47.1 41.0-53.0 % Mean Corpuscular Volume 92.3 80.0-100.0 fL Mean Corpuscular Hemoglobin 30.9 28.0-32.0 pg Mean Corpuscular Hemoglobin Concent 33.5 32.0-36.0 g/dL Red Cell Distribution Width 19.0 H 11.8-14.3 % Platelet Count 294 140-450 10^3/uL Mean Platelet Volume 8.9 6.9-10.8 fL Neutrophils (%) (Auto) 75.7 37.0-80.0 % Lymphocytes (%) (Auto) 15.5 10.0-50.0 % Monocytes (%) (Auto) 6.6 0.0-12.0 % Eosinophils (%) (Auto) 1.2 0.0-7.0 % Basophils (%) (Auto) 1.0 0.0-2.0 % Neutrophils # (Auto) 6.1 1.6-8.6 10 ^3/uL Lymphocytes # (Auto) 1.2 0.4-5.4 10 ^3/uL Monocytes # (Auto) 0.5 0-1.3 10 ^3/uL Eosinophils # (Auto) 0.1 0-0.8 10 ^3/uL Basophils # (Auto) 0.1 0-0.2 10 ^3/uL Nucleated Red Blood Cells 0.1 % Sodium Level 140 136-145 mmol/L Potassium Level 4.0 3.5-5.1 mmol/L Chloride Level 102 98-107 mmol/L Carbon Dioxide Level 28 20-31 mmol/L Anion Gap 10 5-15 Blood Urea Nitrogen 32 H 9-23 mg/dL Creatinine 1.77 H 0.700-1.30 mg/dL Glomerular Filtration Rate Calc 44 >90 mL/min BUN/Creatinine Ratio 18.1 10.0-20.0 Serum Glucose 96 74-106 mg/dL Calcium Level 10.4 8.7-10.4 mg/dL Patient alert. Complaining of abdominal pain. Vitals stable. Answering questions. Abdomen is soft. History of hernia. Waiting for hernia surgery. Reviewed his previous visit. Was given pain medication. Kidney function elevated. Chronic. Was told to drink fluids. CT scan of the abdomen reviewed does show fat containing hernia. Possible urinary tract infection. Was given Bactrim. Explained to the patient. Continue monitoring. Was told to follow up with his primary care physician. Was told to come back if there is any problem. PATIENT: VANDANA MCGEE ACCT: [id number] UNIT: [id number] : 1965 LOC: ER ROOM / BED: / AGE / SEX: 59 / M ADM STATUS: REG ER SERVICE [id number] ORDERING PHYSICIAN: LISA ADHIKARI MD PROCEDURE(s): ABPL - CT AB PEL WO CON-NO ORAL OR IV REASON: hernia ORDER NUMBER(s): [id number], ACCESSION NUMBER(s): [id number] EXAM DESCRIPTION: CT CT AB PEL WO CON-NO ORAL OR IV CLINICAL HISTORY: hernia COMPARISON: None TECHNIQUE: CT abdomen and pelvis without IV contrast was performed. Coronal and sagittal MPR images were generated.CTDI/ DLP = 8.25 mGy / 390.81 mGy.cm Dose reduction technique with one or more of the following methods was performed: Automated exposure control, adjustment of the mA and/or kV according to patient size, use of iterative reconstruction [place] FINDINGS: Lower chest: Cardiomegaly. Liver: The liver is slightly heterogeneous. . Biliary: The gallbladder is contracted. No calcified gallstones. No biliary ductal dilatation. Pancreas: No fat stranding or focal lesion. Spleen: Normal in size.. Adrenal glands: No nodularity. Kidneys: A few punctate bilateral renal calculi. Trace bilateral perinephric stranding / edema. No hydroureteronephrosis. . Bladder: Diffuse bladder wall thickening. Reproductive organs: Normal. Bowel: No bowel wall thickening or dilatation. Normal appendix.. Peritoneum: Trace volume ascites No free air. Vessels: Normal caliber abdominal aorta. Mild atherosclerotic calcifications.. Lymph nodes: No suspicious lymph nodes. Soft tissues: Small fat containing bilateral inguinal hernias. . Mild diffuse subcutaneous edema. Osseous structures: No acute fracture or subluxation. No suspicious osseous lesions. Degenerative changes of the visualized thoracolumbar spine. IMPRESSION: 1. Punctate bilateral renal calculi. No hydronephrosis. 2. Diffuse bladder wall thickening which may be due to chronic bladder outlet obstruction or cystitis. Correlate with urinalysis. 3. Slightly heterogeneous liver, which may suggest chronic liver disease. 4. Mild anasarca with trace ascites. 5. Cardiomegaly. 6. Small fat containing bilateral inguinal hernias. Time of 1ST Reevaluation: 10:03 Reevaluation 1ST: Unchanged Patient Education/Counseling: Diagnosis, Treatment, Need For Follow Up Family Education/Counseling: No Family Present SEPSIS Sepsis Screen Date sepsis recognized/suspect: Jun 01, 2025 Time Sepsis recognized/suspect: 917 Recent Procedure: No On Antibiotic Therapy: No Respiratory Rate >20: No Heart Rate >90: No Temp<36 C (96.8 F) or >38.3 C: No SBP <90 or MAP <65 mmHG: No New Acute Mental Status Change: No Is the patient on CPAP, BIPAP,: No Physician Orders Ct Ab Pel Wo Con-No Oral Or Iv (06/01/25 09:35) Urinalysis (06/01/25 09:35) Vital Signs Date Time Temp Pulse Resp B/P (MAP) Pulse Ox O2 Delivery O2 Flow Rate FiO2 06/01/25 09:46 55 13 98 Room Air* 0 21 06/01/25 09:44 98.2 55 20 137/105 (116) 98 98.2 06/01/25 09:44 55 20 98 Room Air 06/01/25 09:17 98.2 66 16 143/92 (109) 98 98.2 Laboratory Tests Test 06/01/25 09:45 White Blood Count 8.0 10^3/uL (4.4-10.8) Departure 1 Departure Time of Disposition: 09:40 Impression: Primary Impression: Intractable abdominal pain Additional Impression: UTI (urinary tract infection) Qualified Codes: N30.00 - Acute cystitis without hematuria Disposition: HOME / SELF CARE / HOMELESS Condition: Good e-Prescriptions Sulfamethoxazole W/Trimethopri (Bactrim Ds Tablet) 1 Tab Tb 1 TAB PO BID for 5 Days, #10 TAB Prov: LISA ADHIKARI MD 06/01/25 Discharged With: Self Critical Care Note Critical Care Time?: No Stability Stability form required: No Heart Score Heart Score: Heart Score Response (Comments) Value History N/A 0 EKG N/A 0 Age N/A 0 Risk Factors N/A 0 Troponin N/A 0 Total 0 I personally scribed for LISA ADHIKARI MD ([email or web address]) on 06/01/25 at 09:36. Electronically submitted by Spencer Zamora ([email or web address]). I personally scribed for LISA ADHIKARI MD ([email or web address]) on 06/01/25 at 10:41. Electronically submitted by Spencer Zamora ([email or web address]). LISA ADHIKARI MD Jun 01, 2025 09:36
[2025-06-01] MEDS: HYDROcodone-ACET 10/325MG TAB PO ONE (09:45)
[2025-06-01 09:46] VITALS: PULSE 55; RESP 13; O2SAT 98
[2025-06-01 09:57] LABS: Hematocrit 47.1 % (41.0-53.0); Hemoglobin 15.8 g/dL (13.5-17.5); Mean Corpuscular Hemoglobin 30.9 pg (28.0-32.0); Mean Corpuscular Volume 92.3 fL (80.0-100.0); Nucleated Red Blood Cells % 0.1 %
[2025-06-01 10:08] LABS: Carbon Dioxide 28 mmol/L (20-31); Chloride 102 mmol/L (98-107); Potassium 4.0 mmol/L (3.5-5.1); Sodium 140 mmol/L (136-145)
[2025-06-01 10:10] LABS: Anion Gap 10 (5-15); Calcium 10.4 mg/dL (8.7-10.4)
[2025-06-01 10:14] LABS: BUN/Creatinine Ratio 18.1 (10.0-20.0); Blood Urea Nitrogen 32 mg/dL (9-23); Glucose 96 mg/dL (74-106)
--- NOTE | 2025-06-01 10:26 | DVH ---
EXAM DESCRIPTION: CT CT AB PEL WO CON-NO ORAL OR IV CLINICAL HISTORY: hernia COMPARISON: None TECHNIQUE: CT abdomen and pelvis without IV contrast was performed. Coronal and sagittal MPR images were generat ed.CTDI/ DLP = 8.25 mGy / 390.81 mGy.cm Dose reduction technique with one or more of the following methods was performed: Automated exposure control, adjustment of the mA and/or kV according to patient size, use of iterative reconstruction [place] FINDINGS: Lower chest: Cardiomegaly. Liver: The liver is slightly heterogeneous. . Biliary: The gallbladder is contracted. No calcified gallstones. No biliary ductal dilatation. Pancreas: No fat stranding or focal lesion. Spleen: Normal in size.. Adrenal glands: No nodularity. Kidneys: A few punctate bilateral renal calculi. Trace bilateral perinephric stranding / edema. No hy droureteronephrosis. . Bladder: Diffuse bladder wall thickening. Reproductive organs: Normal. Bowel: No bowel wall thickening or dilatation. Normal appendix.. Peritoneum: Trace volume ascites No free air. Vessels: Normal caliber abdominal aorta. Mild atherosclerotic calcifications.. Lymph nodes: No suspicious lymph nodes. Soft tissues: Small fat containing bilateral inguinal hernias. . Mild diffuse subcutaneous edema. Osseous structures: No acute fracture or subluxation. No suspicious osseous lesions. Degenerative c hanges of the visualized thoracolumbar spine. IMPRESSION: 1. Punctate bilateral renal calculi. No hydronephrosis. 2. Diffuse bladder wall thickening which may be due to chronic bladder outlet obstruction or cystitis . Correlate with urinalysis. 3. Slightly heterogeneous liver, which may suggest chronic liver disease. 4. Mild anasarca with trace ascites. 5. Cardiomegaly. 6. Small fat containing bilateral inguinal hernias.
[2025-06-01 11:16] LABS: Urine Protein, UAD 2+ (Negative); Urine WBC Clumps PRESENT /hpf (None Seen)
[2025-06-01] MEDS ORDERED: BACDST PO (11:25)
[2025-06-01 11:30] VITALS: BP 147/99; PULSE 55; RESP 18; TEMP 98.7; O2SAT 98
[2025-06-01] MEDS: ONDANSETRON ODT 4 MG TAB PO ONE (11:41)
== END 2025-06-01 12:40 | disposition home or self-care (01) ==
LOC: ER 09:07
DX: N39.0 Urinary tract infection, site not specified (principal); R10.84 Generalized abdominal pain; I50.9 Heart failure, unspecified; J44.9 Chronic obstructive pulmonary disease, unspecified; Z95.0 Presence of cardiac pacemaker; Z79.899 Other long term (current) drug therapy
CPT/HCPCS: 36415; 74176; 80048; 81001; 85025; 99284; Q0162

== ENCOUNTER 2025-06-11 06:11 | Day surgery (SDC) | payer MEDICAID ==
[2025-06-07 10:26] LABS: Hematocrit 48.5 % (41.0-53.0); Hemoglobin 16.1 g/dL (13.5-17.5); Mean Corpuscular Hemoglobin 30.8 pg (28.0-32.0); Mean Corpuscular Volume 92.9 fL (80.0-100.0); Nucleated Red Blood Cells % 0.1 %
[2025-06-07 10:34] LABS: Urine Budding Yeast FEW /hpf (None Seen); Urine Protein, UAD 1+ (Negative)
[2025-06-07 10:45] LABS: Alanine Aminotransferase 39 U/L (7-40); Albumin 4.3 g/dL (3.2-4.8); Alkaline Phosphatase 101 U/L (46-116); Anion Gap 9 (5-15); BUN/Creatinine Ratio 16.3 (10.0-20.0); Carbon Dioxide 28 mmol/L (20-31); Chloride 103 mmol/L (98-107); Glucose 102 mg/dL (74-106); Potassium 4.5 mmol/L (3.5-5.1); Sodium 140 mmol/L (136-145); Total Protein 6.8 g/dL (5.7-8.2)
[2025-06-07 10:48] LABS: Bilirubin, Total 1.3 mg/dL (0.2-1.0); Blood Urea Nitrogen 33 mg/dL (9-23); Calcium 10.8 mg/dL (8.7-10.4)
[2025-06-07 10:50] LABS: INR 1.17 (0.9-1.15); Partial Thromboplastin Time 27.6 SEC (24.5-34.5); Prothrombin Time 12.2 sec (9.3-11.8)
[~2025-06-11] VITALS: Ht 172.7 cm; Wt 72.6 kg
[2025-06-11] VITALS (7 sets, daily range): BP systolic 123; BP diastolic 91; PULSE 78–91; RESP 12–18; TEMP 98.4; O2SAT 87–100
[~2025-06-11 06:11] MED LIST changes: -CARV6.2517 PO; -CARV6.2551 PO; -EMPA1TAB PO
[2025-06-11] MEDS ORDERED: ceFAZolin 1GM VL IV ONE (06:12)
[2025-06-11] MEDS ORDERED: hydrALAZINE HCL 20 MG/ML VL IV PRN (08:30)
[2025-06-11] MEDS ORDERED: HYDROmorphone HCL 2 MG/ML VL/or syr IV PRN (08:30)
[2025-06-11] MEDS ORDERED: ONDANSETRON HCL 4 MG/2 ML VIAL IV ONE (08:30)
[2025-06-11] MEDS ORDERED: METOCLOPRAMIDE HCL 5MG/ml INJ 2ml VIAL IV ONE (08:30)
[2025-06-11] MEDS ORDERED: MIDAZOLAM HCL 2MG/2ML 2ml VIAL (1mg/ml) ONE (08:36)
[2025-06-11] MEDS ORDERED: fentaNYL CITRATE 100 MCG/2 ML VL ONE (08:36)
[2025-06-11] MEDS ORDERED: LIDOCAINE 2% (LOCAL ANESTH.) PF 5ml SDV ONE (08:37)
[2025-06-11] MEDS ORDERED: PROPOFOL 10 MG/ML 20 ML IV ONE (08:37)
[2025-06-11] MEDS ORDERED: ONDANSETRON HCL 4 MG/2 ML VIAL ONE (08:37)
[2025-06-11] MEDS ORDERED: ROCURONIUM 10MG/ML 10ML VIAL IV ONE (08:37)
[2025-06-11] MEDS ORDERED: METOCLOPRAMIDE HCL 5MG/ml INJ 2ml VIAL ONE (08:37)
[2025-06-11] MEDS: LIDOCAINE W/ EPINEPHRINE 1% 20ML VIAL ONE (09:51)
[2025-06-11] MEDS: BUPIVACAINE HCL 0.25% P/F 10 ML VIAL ONE (09:51)
[2025-06-11] MEDS ORDERED: PHENYLEPHRINE HCL 10 MG/ML VL ONE (09:52)
[2025-06-11] MEDS ORDERED: SUGAMMADEX 200mg/2ml Vial (100MG/ML) IV ONE (10:02)
--- NOTE | 2025-06-11 10:58 | DVHOP ---
DATE OF SURGERY: 06/11/2025 PREOPERATIVE DIAGNOSIS: Left inguinal hernia. POSTOPERATIVE DIAGNOSIS: Direct left inguinal hernia. SURGEON: Clemente Rosado MD. ANESTHESIA: General endotracheal. ANESTHESIOLOGIST: Nurse finished carpet inspector. PROCEDURE: Left hernia repair. DESCRIPTION OF PROCEDURE: Under adequate anesthesia with the patient's skin prepped and draped and infiltrated with 0.25% Marcaine and 0.5% Xylocaine with epinephrine mixture, incision was made over the visible palpable bulge in the left groin. Incision was deepened with electrocautery onto the fibers of the external oblique aponeurosis. The cord structures including a large lipoma and hernia were encircled with a Rupert drain and retracted laterally. The ilioinguinal nerve was identified circumferentially, protected from injury and visualized throughout the procedure to remain intact. An extensive search for an indirect hernia sac along the usual course was then performed with no identification of an external evidence of an indirect hernia sac being present. The hernia consisted mostly of a fatty direct herniation, which was reduced and then the floor of the hernia was repaired using #1 interrupted nonabsorbable sutures through the conjoined tendon and reflecting part of Poupart's ligaments. The wound was irrigated. Hemostasis was meticulously accomplished and found to be complete. The testicle was then assured to be in its normal anatomical position. The ilioinguinal nerve was returned into its normal anatomical position as were the cord structures. Subcutaneous tissues and skin were approximated using Monocryl sutures, Dermabond glue, and Steri-Strips. The patient remained stable throughout the procedure. He left the operating room following an accurate needle and sponge counts. Celmente Rosado MD PF/WES TID: [id number] RECEIPT: [id number]
[2025-06-11] MEDS: FUROSEMIDE 40 MG/4 ML VIAL IV ONE (12:23)
== END 2025-06-11 13:34 | disposition home or self-care (01) ==
LOC: SUR 06:11
PROVIDERS: ATTEND Surgery
DX: K40.90 Unilateral inguinal hernia, without obstruction or gangrene, not specified as recurrent (principal); D17.6 Benign lipomatous neoplasm of spermatic cord; I12.9 Hypertensive chronic kidney disease with stage 1 through stage 4 chronic kidney disease, or unspecified chronic kidney disease; N18.30 Chronic kidney disease, stage 3 unspecified; I25.10 Atherosclerotic heart disease of native coronary artery without angina pectoris; Z95.810 Presence of automatic (implantable) cardiac defibrillator; Z79.899 Other long term (current) drug therapy; Z98.890 Other specified postprocedural states
CPT/HCPCS: 36415; 49505; 80053; 81001; 85025; 85610; 85730; 86850; 86900; 86901; J0690; J2003; J2250; J2371; J2405; J2704; J2765; J3010; J3490

== ENCOUNTER 2025-06-21 00:31 | Inpatient (IN) | payer MEDICAID ==
[2025-06-21] VITALS (8 sets, daily range): BP systolic 106–123; BP diastolic 78–89; PULSE 68–89; RESP 16–18; TEMP 97.7–98.3; O2SAT 0–97
[~2025-06-21] VITALS: Ht 170.2 cm; Wt 72.3 kg
--- NOTE | 2025-06-21 00:52 | ECG ---
[facility] Test Date: 2025-06-21 Test Time: 00:46:03 Pat Name: VANDANA MCGEE Department: er Room: 0218T Gender: M Bioinformatics Assistant: kelly : 1965 Requested By: EMERGENCY EMERGENCY Order Number: [id number] Reading MD: Yasmany Ellington Measurements Intervals [place] Rate: 102 P: 71 OK: 162 QRS: -42 QRSD: 121 T: 107 QT: 372 QTc: 485 Interpretive Statements Sinus tachycardia Probable left atrial enlargement Left bundle branch block Electronically Signed On 06-27-2025 17:32:14 PDT by Yasmany Ellington Please click the below link to view image of tracing.
--- NOTE | 2025-06-21 00:57 | ED.PDOC ---
Musculoskeletal HPI Comments 59 year old male presents to the ED with a chief complaint of bilateral feet swelling onset 1 day. Patient states he noticed bilateral feet swelling 1 day ago, by the end of the day noticed swelling was radiating to bilateral legs and noticed erythema on feet. He noticed swelling worsen today, came to ED. PMHx CHF, COPD, CKF. Denies injury, trauma, nausea, vomiting, diarrhea, headache, fever, chills, numbness/tingling. No other associated symptoms, modifiers, recent injuries or sick contacts present at this time. Chief Complaint: Extremity Swelling Time Seen by MD: 00:40 Primary Care Provider: DESHAWN Reviewed Notes: Medications, Allergies Allergies: Coded Allergies: NO KNOWN ALLERGIES (Unverified , 06/15/15) Home Meds Active Scripts Furosemide (Lasix) 40 Mg Tab, 40 MG PO DAILY, #90 TAB Prov:RACHELE EARLY MD 03/23/25 Ipratropium Volcano Hfa (Atrovent Hfa) 17 Mcg Aer, 2 PUFF INH QID PRN for 30 Days, #12.9 GRAMS 0 Refills Prov:GEORGE RUSSELL RESIDENT 02/08/25 Reported Medications Furosemide (Furosemide) 40 Mg Tab, 1 TAB PO DAILY for 30 Days, #30 03/22/25 Sacubitril-Valsartan (Entresto 24-26 mg) 1 Tab Tab, 1 TAB PO DAILY for 33 Days, #30 03/20/25 Atorvastatin Calcium (Lipitor) 40 Mg Tab, 1 TAB PO DAILY, #30 TAB 5 Refills 03/20/25 Dapagliflozin Propanediol (Farxiga) 10 Mg Tab, 10 MG PO DAILY, TAB 03/20/25 Aspirin (Chewable Aspirin) 81 Mg Chw, 1 TAB PO DAILY 01/16/25 Information Source: Patient Mode of Arrival: Ambulatory Location: Bilateral Extremity Location: Foot, Leg Timing: Days Prehospital treatment: None Severity: Moderate Able to Move Extremity: Yes Bear Weight: Fully Pain: Moderate Mechanism: Spontaneous Onset of Symptoms: Spontaneous Symptoms: Swelling, Pain, Erythema DVT Risk Factors: CHF Past Medical History PAST MEDICAL HISTORY: CHF, CKF, COPD Surgical History: Pacemaker Family History Family History: Reviewed,noncontributory to illness Social History Smoker: Quit Greater Than 1 Year, Cigarettes Alcohol: Denies ETOH Use Drugs: Marijuana Lives In: Home Constitutional: denies: chills, diaphoresis, fatigue, fever, malaise, sweats, weakness, others EENTM: denies: blurred vision, double vision, ear bleeding, ear discharge, ear drainage, ear pain, ear ringing, eye pain, eye redness, hearing loss, mouth pain, mouth swelling, nasal discharge, nose bleeding, nose congestion, nose pain, photophobia, tearing, throat pain, throat swelling, voice changes, others Respiratory: denies: cough, hemoptysis, orthopnea, SOB at rest, shortness of breath, SOB with excertion, stridor, wheezing, others Cardiovascular: denies: chest pain, dizzy spells, diaphoresis, Dyspnea on exertion, edema, irregular heart beat, left arm pain, lightheadedness, palpitations, PND, syncope, others Gastrointestinal: denies: abdomen distended, abdominal pain, blood streaked bowels, constipated, diarrhea, dysphagia, difficulty swallowing, hematemesis, melena, nausea, poor appetite, poor fluid intake, rectal bleeding, rectal pain, vomiting, others Genitourinary: denies: burning, dysuria, flank pain, frequency, hematuria, incontinence, penile discharge, penile sore, pain, testicle pain, testicle swelling, urgency, others Neurological: denies: dizziness, fainting, headache, left sided numbness, left sided weakness, numbness, paresthesia, pre-existing deficit, right sided numbness, right sided weakness, seizure, speech problems, tingling, tremors, weakness, others Musculoskeletal: reports: others (bilateral feet swelling, bilateral leg swelling); denies: back pain, gout, joint pain, joint swelling, muscle pain, muscle stiffness, neck pain Integumetry: denies: bruises, change in color, change in hair/nails, dryness, laceration, lesions, lumps, rash, wounds, others Allergic/Immunocompromised: denies: Difficulty Healing, Frequent Infections, Hives, Itching, others Hematologic/Lymphatic: denies: anemia, blood clots, easy bleeding, easy bruising, swollen glands, others Endocrine: denies: excessive hunger, excessive sweating, excessive thirst, excessive urination, flushing, intolerance to cold, intolerance to heat, unexplained weight gain, unexplained weight loss, others Psychiatric: denies: anxiety, bipolar disorder, depression, hopeless, panic disorder, schizophrenia, sleepless, suicidal, others All Other Systems: Reviewed and Negative Physical Exam General Appearance: Normal HEENT: Normal ENT Inspection, Pharynx Normal, TMs Normal Neck: Full Range of Motion, Non-Tender, Normal, Normal Inspection Respiratory: Chest Non-Tender, Lungs Clear, No Accessory Muscle Use, No Respiratory Distress, Normal Breath Sounds Cardiovascular: No Edema, No JVD, No Murmur, No Gallop, Normal Peripheral Pulses, Regular Rate/Rhythm Breast Exam: Deferred Gastrointestinal: No Organomegaly, Non Tender, No Pulsatile Mass, Normal Bowel Sounds, Soft Genitalia: Deferred Pelvic: Deferred Rectal: Deferred Extremities: Other (2+ pitting edema) Musculoskeletal : Apperance: Normal Neurologic: Alert, grazing examiner II-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 Was a procedure done?: No Differential Diagnosis EXT Differential Diagnosis: Cellulitis, CHF X-Ray, Labs, Meds, VS Vital Signs Date Time Temp Pulse Resp B/P (MAP) Pulse Ox O2 Delivery O2 Flow Rate FiO2 06/21/25 00:46 102 06/21/25 00:42 98.0 102 18 128/98 (108) 100 98.0 Lab Test 06/21/25 01:57 06/21/25 00:59 Range/Units Troponin I High Sensitivity Pending 83 *H </=54 ng/L White Blood Count 8.4 4.4-10.8 10^3/uL Red Blood Count 4.89 4.5-5.90 10^6/uL Hemoglobin 15.1 13.5-17.5 g/dL Hematocrit 45.7 41.0-53.0 % Mean Corpuscular Volume 93.4 80.0-100.0 fL Mean Corpuscular Hemoglobin 30.9 28.0-32.0 pg Mean Corpuscular Hemoglobin Concent 33.1 32.0-36.0 g/dL Red Cell Distribution Width 17.7 H 11.8-14.3 % Platelet Count 333 140-450 10^3/uL Mean Platelet Volume 8.9 6.9-10.8 fL Neutrophils (%) (Auto) 77.8 37.0-80.0 % Lymphocytes (%) (Auto) 12.7 10.0-50.0 % Monocytes (%) (Auto) 7.2 0.0-12.0 % Eosinophils (%) (Auto) 1.7 0.0-7.0 % Basophils (%) (Auto) 0.6 0.0-2.0 % Neutrophils # (Auto) 6.5 1.6-8.6 10 ^3/uL Lymphocytes # (Auto) 1.1 0.4-5.4 10 ^3/uL Monocytes # (Auto) 0.6 0-1.3 10 ^3/uL Eosinophils # (Auto) 0.1 0-0.8 10 ^3/uL Basophils # (Auto) 0.1 0-0.2 10 ^3/uL Nucleated Red Blood Cells 0.2 % Sodium Level 138 136-145 mmol/L Potassium Level 3.9 3.5-5.1 mmol/L Chloride Level 100 98-107 mmol/L Carbon Dioxide Level 28 20-31 mmol/L Anion Gap 10 5-15 Blood Urea Nitrogen 43 H 9-23 mg/dL Creatinine 2.38 H 0.700-1.30 mg/dL Glomerular Filtration Rate Calc 31 >90 mL/min BUN/Creatinine Ratio 18.1 10.0-20.0 Serum Glucose 75 74-106 mg/dL Calcium Level 9.5 8.7-10.4 mg/dL B-Type Natriuretic Peptide Pending Time of 1ST Reevaluation: 01:10 Reevaluation 1ST: Unchanged Patient Education/Counseling: Diagnosis, Treatment, Prognosis Family Education/Counseling: No Family Present Departure 1 Departure Time of Disposition: 02:13 (Patient presented with shortness of breath that was concerning for possible STEMI, ACS, PE, Pneumonia, Muscle Strain, COPD, Dissection, Acute on Chronic systolic and Diastolic dysfunction. Data: 1. I ordered and reviewed the result of at least 3 labs including a CBC, BMP, and Troponin. 2. I independently interpreted the following tests: EKG which shows s inus arrhthmia and Chest X-ray which shows cardiomegaly.Risk:This patient has a high risk of morbidity due to further diagnostic testing or treatment and may suffer from an acute cardiac or respiratory disorder but is most consitent with an acute chf exacerbation. Patient should be admitted for further workup and possible expert consultation. ) Impression: Primary Impression: Acute on chronic systolic (congestive) heart failure Additional Impression: Lower extremity edema Disposition: ADMITTED INPATIENT Admit to: Med Surg Condition: Serious Critical Care Note Critical Care Time?: Yes Critical care comment: Acute on chronic heart failure Authorized and Performed by: Fadumo Carlson MD Total critical care time: Approximately 39 minutes Due to a high probability of clinically significant, life threatening d eterioration, the patient required my highest level of preparedness to intervene emergently and I personally spent this critical care time directly and personally managing the patient. This critical care time included obtaining a history; examining the patient; pulse oximetry; ordering and review of studies; arranging urgent treatment with development of a management plan; evaluation of patient's response to treatment; frequent reassessment; and, discussions with other providers. This critical care time was performed to assess and manage the high probability of imminent, life-threatening deterioration that could result in multi-organ failure. It was exclusive of separately billable procedures and treating other patients and teaching time. Please see my other sections and the rest of the note for further information on patient assessment and treatment. Stability Stability form required: No I personally scribed for FADUMO CARLSON MD ([email or web address]) on 06/21/25 at 00:57. Electronically submitted by Ekaterina Bejarano ([email or web address]). FADUMO CARLSON MD Jun 21, 2025 00:57
[2025-06-21 01:35] LABS: Hematocrit 45.7 % (41.0-53.0); Hemoglobin 15.1 g/dL (13.5-17.5); Mean Corpuscular Hemoglobin 30.9 pg (28.0-32.0); Mean Corpuscular Volume 93.4 fL (80.0-100.0); Nucleated Red Blood Cells % 0.2 %
--- NOTE | 2025-06-21 01:43 | DVH ---
CHEST RADIOGRAPH Indication: swelling Technique: Single frontal view of the chest was obtained COMPARISON: XY CHEST PORTABLE on DOS: 03/20/25, XY CHEST XRAY 1 VIEW on DOS: 02/06/25, XY CHEST PORTABL E on DOS: 01/16/25 FINDINGS: Lines and Tubes: None. Left anterior chest wall cardiac pacing device. Lungs: Clear Pleura: No effusion. No pneumothorax. Cardiomediastinal contours: Cardiomegaly. Bones: Unremarkable IMPRESSION: 1. Cardiomegaly
[2025-06-21 01:45] LABS: Chloride 100 mmol/L (98-107); Potassium 3.9 mmol/L (3.5-5.1); Sodium 138 mmol/L (136-145)
[2025-06-21 01:46] LABS: Anion Gap 10 (5-15); Carbon Dioxide 28 mmol/L (20-31)
[2025-06-21 01:47] LABS: Calcium 9.5 mg/dL (8.7-10.4)
[2025-06-21 01:51] LABS: Glucose 75 mg/dL (74-106)
[2025-06-21 01:52] LABS: BUN/Creatinine Ratio 18.1 (10.0-20.0)
[2025-06-21 01:53] LABS: Blood Urea Nitrogen 43 mg/dL (9-23)
[2025-06-21] MEDS ORDERED: NITROGLYCERIN 0.4 MG SL TAB SL PRN (03:45)
[2025-06-21] MEDS ORDERED: ACETAMINOPHEN 325 MG TAB PO PRN (03:45)
[2025-06-21] MEDS ORDERED: ONDANSETRON HCL 4 MG/2 ML VIAL IV PRN (03:45)
[2025-06-21] MEDS ORDERED: MORPHINE SULFATE INJ 2 MG/ml SYRG IV PRN (03:45)
--- NOTE | 2025-06-21 04:19 | DVHHP2 ---
History of Present Illness Reason for Visit: Lower extremity swelling History of Present Illness 69-year-old male presents for evaluation of lower extremity swelling. Patient reports a one day history of noticing increased swelling of his lower extremities from his legs all the way down to his feet. Reports some chest tightness as well. Mild shortness for breath. No fever or chills. No other acute complaints. Past Medical History COPD, congestive heart failure, chronic kidney disease Past Surgical History Pacemaker Family History Noncontributory Smoke: Quit ALCOHOL: none Drugs: Marijuana Review of Systems Review of Systems Review of systems are currently negative otherwise addressed in HPI. Allergies: Coded Allergies: NO KNOWN ALLERGIES (Unverified , 06/15/15) Medications Current Medications Medications Dose Ordered Sig/Silva Route Start Time Stop Time Status Last Admin Dose Admin Aspirin 81 mg DAILY PO 06/21/25 10:00 Furosemide 20 mg BIDD IV 06/21/25 06:00 Sacubitril/ Valsartan 1 tab BID PO 06/21/25 10:00 Empaglifozin 10 mg DAILY PO 06/21/25 10:00 Carvedilol 6.25 mg Q12HR PO 06/21/25 10:00 Atorvastatin Calcium 40 mg HS PO 06/21/25 22:00 Ondansetron HCl 4 mg Q4HP PRN IV 06/21/25 03:45 Acetaminophen 650 mg Q6HP PRN PO 06/21/25 03:45 Nitroglycerin 0.4 mg Q5MINP PRN SL 06/21/25 03:45 Morphine Sulfate 2 mg Q30M PRN IV 06/21/25 03:45 Exam Vital Signs Vital Signs Date Time Temp Pulse Resp B/P (MAP) Pulse Ox O2 Delivery O2 Flow Rate FiO2 06/21/25 00:46 102 06/21/25 00:42 98.0 18 128/98 (108) 100 98.0 Exam Gen: 59-year-old male in mild distress Skin: Warm, dry, normal color and texture, no rash. HEENT: Normocephalic atraumatic, mucous membranes moist and pink. Neck: Cervical and supraclavicular nodes normal without enlargement, trachea is midline, thyroid gland is normal without masses. Pulmonary: Clear to auscultation and percussion bilaterally. Cardiac: Regular rate and rhythm. No murmur Abdomen: Soft, nontender, nondistended, bowel sounds present all 4 quadrants, no guarding, no rigidity, no organomegaly. Extremities: No cyanosis, clubbing, plus two bilateral lower extremity edema Neuro: Cranial nerves II through XII grossly intact, normal affect and speech, no focal motor deficits. Labs/Xrays AGE / SEX: 59 / M ADM STATUS: DIS IN SERVICE [id number] ORDERING PHYSICIAN: NEELIMA WALTERS PROCEDURE(s): ECIDC - ECHO 2D MODE CARDIAC DOP REASON: HF ORDER NUMBER(s): [id number], ACCESSION NUMBER(s): [id number] APPROVED REPORT EXAM: Two-dimensional and M-mode echocardiogram with Doppler and color Doppler. Blood Pressure: 141/91 mmHg INDICATION HF Surgery/Intervention Pacemaker: RISK FACTORS Height: 5' 7", Weight: 171 DIMENSIONS LVDd 6.7 (3.8-5.7cm) LA (2D) 4.4 (1.9-4.0cm) Aortic Root 3.2 (2.0- 3.7cm) LVDs 6.4 (2.5-4.0cm) LA (MM) (1.9-4.0cm) Aortic Cusp Exc 1.9 (1.5- 2.0cm) EF (%) 9.0 (55-70%) Rt. Atrium 4.9 (1.9-4.0cm) Asc. Aorta cm IVSd 1.2 (0.7-1.1cm) RV (D) (1.8-2.4cm) PWd 1.5 (0.7-1.1cm) Mitral Valve Mitral Mitral Stenosis E wave 1.40m/s MV Mean GR. mmHg A wave 0.70m/s MV Peak GR. mmHg E/A ratio 2.0 2D MVA cm2 Aortic Valve Aortic Valve Aortic Stenosis V1 0.40m/s AO Mean GR. 1mmHg V2 0.70m/s AO Peak GR. 2mmHg LVOT Diameter 2.2 (1.8-2.4cm) Doppler SIERRA 2.17cm2 AI P 1/2 Time 417.19ms Pulmonic Valve V2 0.30m/s Tricuspid Valve TR Velocity 3.30m/s RVSP 50mmHg Conclusion 1. DILATED CARDIOMYOPATHY LV EF IS ONLY 10% 2. MODERATE DEGREE MR 3. NORMAL VALVES 4. NO EFFUSION 5. MODERATE DEGREE PULMONARY HYPERTENSION ORDERING PHYSICIAN: FADUMO CARLSON MD PROCEDURE(s): CXRP - CHEST PORTABLE REASON: swelling ORDER NUMBER(s): [id number], ACCESSION NUMBER(s): [id number] CHEST RADIOGRAPH Indication: swelling Technique: Single frontal view of the chest was obtained COMPARISON: XY CHEST PORTABLE on DOS: 03/20/25, XY CHEST XRAY 1 VIEW on DOS: 02/06/25, XY CHEST PORTABLE on DOS: 01/16/25 FINDINGS: Lines and Tubes: None. Left anterior chest wall cardiac pacing device. Lungs: Clear Pleura: No effusion. No pneumothorax. Cardiomediastinal contours: Cardiomegaly. Bones: Unremarkable IMPRESSION: 1. Cardiomegaly Labs Test 06/21/25 03:45 06/21/25 00:59 Range/Units White Blood Count 8.4 4.4-10.8 10^3/uL Red Blood Count 4.89 4.5-5.90 10^6/uL Hemoglobin 15.1 13.5-17.5 g/dL Hematocrit 45.7 41.0-53.0 % Mean Corpuscular Volume 93.4 80.0-100.0 fL Mean Corpuscular Hemoglobin 30.9 28.0-32.0 pg Mean Corpuscular Hemoglobin Concent 33.1 32.0-36.0 g/dL Red Cell Distribution Width 17.7 H 11.8-14.3 % Platelet Count 333 140-450 10^3/uL Mean Platelet Volume 8.9 6.9-10.8 fL Neutrophils (%) (Auto) 77.8 37.0-80.0 % Lymphocytes (%) (Auto) 12.7 10.0-50.0 % Monocytes (%) (Auto) 7.2 0.0-12.0 % Eosinophils (%) (Auto) 1.7 0.0-7.0 % Basophils (%) (Auto) 0.6 0.0-2.0 % Neutrophils # (Auto) 6.5 1.6-8.6 10 ^3/uL Lymphocytes # (Auto) 1.1 0.4-5.4 10 ^3/uL Monocytes # (Auto) 0.6 0-1.3 10 ^3/uL Eosinophils # (Auto) 0.1 0-0.8 10 ^3/uL Basophils # (Auto) 0.1 0-0.2 10 ^3/uL Nucleated Red Blood Cells 0.2 % Sodium Level 138 136-145 mmol/L Potassium Level 3.9 3.5-5.1 mmol/L Chloride Level 100 98-107 mmol/L Carbon Dioxide Level 28 20-31 mmol/L Anion Gap 10 5-15 Blood Urea Nitrogen 43 H 9-23 mg/dL Creatinine 2.38 H 0.700-1.30 mg/dL Glomerular Filtration Rate Calc 31 >90 mL/min BUN/Creatinine Ratio 18.1 10.0-20.0 Serum Glucose 75 74-106 mg/dL Calcium Level 9.5 8.7-10.4 mg/dL B-Type Natriuretic Peptide > 5000.00 0-100 pg/mL SEPSIS Sepsis Screen Date sepsis recognized/suspect: Jun 21, 2025 Time Sepsis recognized/suspect: 37 Recent Procedure: No On Antibiotic Therapy: No Respiratory Rate >20: No Heart Rate >90: Yes Temp<36 C (96.8 F) or >38.3 C: No SBP <90 or MAP <65 mmHG: No New Acute Mental Status Change: No Is the patient on CPAP, BIPAP,: No Physician Orders Chest Portable (06/21/25 00:49) Troponin-I Hs (06/21/25 03:49) *[facility] (06/21/25 03:37) Aspirin Tablet (06/21/25 10:00) Furosemide Injection (Lasix Injection) (06/21/25 06:00) Sacubitril-Valsartan (Entresto 24-26 Mg (06/21/25 10:00) Empagliflozin (Jardiance) (06/21/25 10:00) Carvedilol Tablet (Coreg Tablet) (06/21/25 10:00) Atorvastatin (Lipitor) (06/21/25 22:00) Basic Metabolic Panel (06/22/25 04:00) Admit (06/21/25 03:37) Renal Standard(2gna,3gk,Lopho) (06/21/25 Breakfast) Ondansetron Hcl (Zofran) (06/21/25 03:45) Condition: Fair (06/21/25 03:37) Acetaminophen Tablet (Tylenol Tablet) (06/21/25 03:45) Bedrest With Bathroom Privileg (06/21/25 03:37) Nitroglycerin Sublingual (Ntrostat Subli (06/21/25 03:45) Morphine Sulfate Injection (06/21/25 03:45) Stat Ekg For Chest Pain (06/21/25 03:37) Notify Md Of Changes From Base (06/21/25 03:37) Religious Leader For 24 Hours (06/21/25 03:37) Emergency Dysrhythmia Protocol (06/21/25 03:37) Rhythm Strips Once Every Shift (06/21/25 03:37) Oxygen By Nasal Cannula (06/21/25 03:37) Vital Signs Date Time Temp Pulse Resp B/P (MAP) Pulse Ox O2 Delivery O2 Flow Rate FiO2 06/21/25 00:46 102 06/21/25 00:42 98.0 102 18 128/98 (108) 100 98.0 Laboratory Tests Test 06/21/25 00:59 White Blood Count 8.4 10^3/uL (4.4-10.8) Assessment/Plan Assessment/Plan Assessment Acute on chronic heart failure Acute on chronic kidney disease Elevated troponin, demand ischemia Plan Admit the patient to telemetry to the hospitalist IV Lasix Resume home medications Nephrology consultation Continue treatment per orders Plan discussed with: Patient My Orders [facility] Procedure Category Date Status Time *[facility] CONS 06/21/25 Transmitted -[place] 03:37 Aspirin Tablet PHA 06/21/25 In Process 10:00 Furosemide Injection PHA 06/21/25 In Process (Lasix Injection) 06:00 Sacubitril-Valsartan PHA 06/21/25 In Process (Entresto 24-26 Mg 10:00 Empagliflozin PHA 06/21/25 In Process (Jardiance) 10:00 Carvedilol Tablet PHA 06/21/25 In Process (Coreg Tablet) 10:00 Atorvastatin (Lipitor) PHA 06/21/25 In Process 22:00 Basic Metabolic Panel LAB 06/22/25 Verified 04:00 Admit ADMIT 06/21/25 Transmitted 03:37 Renal DIET 06/21/25 Transmitted Standard(2gna,3gk,Lopho) Breakfast Ondansetron Hcl PHA 06/21/25 In Process (Zofran) 03:45 Condition: Fair [facility] 06/21/25 In Process 03:37 Acetaminophen Tablet PHA 06/21/25 In Process (Tylenol Tablet) 03:45 Bedrest With Bathroom [facility] 06/21/25 In Process Privileg 03:37 Nitroglycerin [facility] 06/21/25 In Process Sublingual (Ntrostat 03:45 Morphine Sulfate PHA 06/21/25 In Process Injection 03:45 Stat Ekg For Chest [facility] 06/21/25 In Process Pain 03:37 Notify Md Of Changes [facility] 06/21/25 In Process From Base 03:37 Religious Leader For [facility] 06/21/25 In Process 24 Hours 03:37 Emergency Dysrhythmia [facility] 06/21/25 In Process Protocol 03:37 Rhythm Strips Once [facility] 06/21/25 In Process Every Shift 03:37 Oxygen By Nasal RT 06/21/25 Transmitted Cannula 03:37 Date of Service: Jun 21, 2025 Billing Provider: FERNIE CARTAGENA Common Visit Codes: [id number] INP/OBS CARE (HIGH) FERNIE CARTAGENA Jun 21, 2025 04:19
[2025-06-21] MEDS: FUROSEMIDE 40 MG/4 ML VIAL IV ONE ×2 (05:16→11:58)
[2025-06-21] MEDS: FUROSEMIDE 20 MG/2 ML VIAL IV SCH (05:42)
--- NOTE | 2025-06-21 08:46 | DVH ---
Bilateral lower extremity venous duplex Clinical History: r/o dvt; swelling Comparison: None Technique: Duplex Doppler evaluation of the deep venous systems of both lower extremities from the common femora l veins to the popliteal veins including color Doppler and spectral/pulsed waveform analysis was perf ormed. Findings: RIGHT SIDE: The common femoral vein demonstrates appropriate compressibility and waveform variability. There is compressibility/patency of the great saphenous vein at the proximal thigh. The femoral vein demonstrates appropriate compressibility and waveform variability. The deep femoral vein demonstrates appropriate compressibility and waveform variability. The popliteal vein demonstrates appropriate compressibility and waveform variability. There is normal compressibility at the tibioperoneal trunk. LEFT SIDE: The common femoral vein demonstrates appropriate compressibility and waveform variability. There is compressibility/patency of the great saphenous vein at the proximal thigh. The femoral vein demonstrates appropriate compressibility and waveform variability. The deep femoral vein demonstrates appropriate compressibility and waveform variability. The popliteal vein demonstrates appropriate compressibility and waveform variability. There is normal compressibility at the tibioperoneal trunk. Impression: No right or left femoropopliteal venous thrombosis.
[2025-06-21] MEDS: EMPAGLIFLOZIN 10 MG TAB PO SCH (09:09)
[2025-06-21] MEDS: CARVEDILOL 3.125 MG TAB PO SCH (09:09)
[2025-06-21] MEDS: SACUBITRIL-VALSARTAN 24mg/26mg TAB PO SCH (09:16)
--- NOTE | 2025-06-21 09:43 | DVHCONRES ---
Date Seen: Jun 21, 2025 Resident Creating Document: EDELMIRA RILEY RESIDENT Referring Physician OSIEL VIDAL History of Present Illness This is a 59-year-old male with systolic congestive heart failure-EF 10% level is secondary to drug use, dilated cardiomyopathy, possible COPD, recent hernia surgery 05/2025 who presented to the ER with a chief complaint of lower extremity swelling and shortness of breaths for the past 2 weeks. Patient reports compliance to medication and has been doing Lasix 40 mg p.o. b.i.d. at home. He reports shortness of breaths on exertion, PND, orthopnea for the past 2 weeks, also reports lower extremity swelling for the past 2 days up to the level of thighs. He denies fevers/chills/nausea/vomiting/diarrhea. Denies chest pain or palpitations. Patient has ICD placed and follows Dr. Lake as primary care. Home medications: Entresto, Lasix 40 mg b.i.d., aspirin, Farxiga Social history: Reports using speed for the past 45 years, last use 1 month back. Reports using marijuana Patient seen and examined at bedside. At bilateral basilar crackles and lower extremity swelling up to knee. Family History: FH: CHF (congestive heart failure) G8 MOTHER, FH: heart disease G8 MOTHER, Allergies: Coded Allergies: NO KNOWN ALLERGIES (Unverified , 06/15/15) Home Meds Reported Medications Furosemide (Furosemide) 40 Mg Tab, 1 TAB PO BID for 30 Days, #30 03/22/25 Sacubitril-Valsartan (Entresto 24-26 mg) 1 Tab Tab, 1 TAB PO DAILY for 33 Days, #30 03/20/25 Dapagliflozin Propanediol (Farxiga) 10 Mg Tab, 10 MG PO DAILY, TAB 03/20/25 Aspirin (Chewable Aspirin) 81 Mg Chw, 1 TAB PO DAILY 01/16/25 Current Medications Current Medications Medications (Trade) Dose Ordered Sig/Silva Route PRN Reason Start Time Stop Time Status Last Admin Aspirin 81 mg DAILY PO 06/21/25 10:00 06/21/25 09:10 Furosemide (Lasix Injection) 20 mg BIDD IV 06/21/25 06:00 Sacubitril/ Valsartan (Entresto 24-26 Mg tab) 1 tab BID PO 06/21/25 10:00 06/21/25 09:16 Empaglifozin (Jardiance) 10 mg DAILY PO 06/21/25 10:00 06/21/25 09:09 Carvedilol (Coreg Tablet) 6.25 mg Q12HR PO 06/21/25 10:00 06/21/25 09:09 Atorvastatin Calcium (Lipitor) 40 mg HS PO 06/21/25 22:00 Ondansetron HCl (Zofran) 4 mg Q4HP PRN IV NAUSEA / VOMITING 06/21/25 03:45 Acetaminophen (Tylenol Tablet) 650 mg Q6HP PRN PO PAIN SCALE 1-3 OR TEMP>100.4 06/21/25 03:45 Nitroglycerin (Ntrostat Sublingual) 0.4 mg Q5MINP PRN SL FOR CHEST PAIN 06/21/25 03:45 Morphine Sulfate 2 mg Q30M PRN IV FOR CHEST PAIN 06/21/25 03:45 Pantoprazole Sodium (Protonix) 40 mg DAILY IV 06/21/25 10:00 UNV Review of Systems Eyes: No Pain, No Vision change, No Conjunctivae inflammation, No Eyelid inflammation, No Other, No Redness ENT: No Ear pain, No Ear discharge, No Nose pain, No Nose discharge, No Nose congestion, No Mouth pain, No Mouth swelling, No Throat pain, No Throat swelling, No Other Cardiovascular: No Chest Pain, No Palpitations, reports edema, orthopnea, PND No Lt Headedness, No Other Respiratory: No Cough, No Dry, reports shortness of breaths, shortness of breath with exertion, No Wheezing, No Hemoptysis, No Pleuritic Pain, No Sputum, No Other Gastrointestinal: No Nausea, No Vomiting, No Abdominal Pain, No Diarrhea, No Constipation, No Melena, No Hematochezia, No Other Genitourinary: No Dysuria, No Frequency, No Incontinence, No Hematuria, No Retention, No Other Musculoskeletal: No other, No neck pain, No shoulder pain, No arm pain, No back pain, No hand pain, No leg pain, No foot pain Skin: No Rash, No Lesions, No Jaundice, No Bruising, No Other Vital Signs Vital Signs Date Time Temp Pulse Resp B/P (MAP) Pulse Ox O2 Delivery O2 Flow Rate FiO2 06/21/25 09:09 54 114/78 06/21/25 05:33 Room Air* 0 21 06/21/25 05:22 97.9 18 97 97.9 Physical Exam Patient lying in bed, in no acute distress General: Well-built, afebrile, palor, mucosae are moist Cardiovascular: Regular S1 and S2. No murmurs, gallops or rubs. No JVD elevation. Bilateral 2+ pitting edema Respiratory: Bibasilar crackles heard on auscultation, on room air Abdomen: Soft, nontender, nondistended, normoactive bowel sounds, no rebound tenderness, no organomegaly, no masses Genitourinary: Deferred MSK/skin: Mobilizes 4 limbs. Skin is dry and warm Neurological: No motor, no sensitive deficits, normal speech. Pupils are isocoric and reactive. Psych/Mental Status: A/Ox3 Labs/Diagnostic Data Labs Test 06/21/25 03:45 06/21/25 00:59 Range/Units Troponin I High Sensitivity 74 *H </=54 ng/L White Blood Count 8.4 4.4-10.8 10^3/uL Red Blood Count 4.89 4.5-5.90 10^6/uL Hemoglobin 15.1 13.5-17.5 g/dL Hematocrit 45.7 41.0-53.0 % Mean Corpuscular Volume 93.4 80.0-100.0 fL Mean Corpuscular Hemoglobin 30.9 28.0-32.0 pg Mean Corpuscular Hemoglobin Concent 33.1 32.0-36.0 g/dL Red Cell Distribution Width 17.7 H 11.8-14.3 % Platelet Count 333 140-450 10^3/uL Mean Platelet Volume 8.9 6.9-10.8 fL Neutrophils (%) (Auto) 77.8 37.0-80.0 % Lymphocytes (%) (Auto) 12.7 10.0-50.0 % Monocytes (%) (Auto) 7.2 0.0-12.0 % Eosinophils (%) (Auto) 1.7 0.0-7.0 % Basophils (%) (Auto) 0.6 0.0-2.0 % Neutrophils # (Auto) 6.5 1.6-8.6 10 ^3/uL Lymphocytes # (Auto) 1.1 0.4-5.4 10 ^3/uL Monocytes # (Auto) 0.6 0-1.3 10 ^3/uL Eosinophils # (Auto) 0.1 0-0.8 10 ^3/uL Basophils # (Auto) 0.1 0-0.2 10 ^3/uL Nucleated Red Blood Cells 0.2 % Sodium Level 138 136-145 mmol/L Potassium Level 3.9 3.5-5.1 mmol/L Chloride Level 100 98-107 mmol/L Carbon Dioxide Level 28 20-31 mmol/L Anion Gap 10 5-15 Blood Urea Nitrogen 43 H 9-23 mg/dL Creatinine 2.38 H 0.700-1.30 mg/dL Glomerular Filtration Rate Calc 31 >90 mL/min BUN/Creatinine Ratio 18.1 10.0-20.0 Serum Glucose 75 74-106 mg/dL Calcium Level 9.5 8.7-10.4 mg/dL B-Type Natriuretic Peptide > 5000.00 0-100 pg/mL Assessment OSMANI on CKD likely due to cardiorenal syndrome Acute on chronic congestive heart failure exacerbation-last EF 10%-NYHA class 3 NSTEMI Possible COPD Type 2 diabetes mellitus-new onset-A1c 6.7 CKD stage IIIB Recent inguinal hernia repair Secondary hyperparathyroidism Drug induced cardiomyopathy Polysubstance use Baseline GFR 44 BNP greater than 5000 Plan: Increase Lasix to 40 mg IV b.i.d. Continue GDMT as tolerated Fluid restriction, Strict I&Os, daily weight, follow up with urine analysis and urine electrolytes Renal and cardiac diet Diabetic education provided, lifestyle measures recommended Patient counseled regarding cessation of drug use We will continue to follow up Plan discussed with patient in which all questions have been answered Case discussed with Dr. Zaragoza Plan discussed with: Patient EDELMIRA RILEY RESIDENT Jun 21, 2025 09:43
[2025-06-21] MEDS: PANTOPRAZOLE 40 MG/10 ML VIAL INJ IV SCH (10:39)
[2025-06-21 13:51] LABS: Urine Protein, UAD Negative (Negative)
[2025-06-21 13:55] LABS: Protein, Urine < 6.0 mg/dL (1-14)
[2025-06-21 13:57] LABS: Cannabinoid Screen, Urine Pos (NEGATIVE)
[2025-06-21 13:58] LABS: Barbiturate Scree,Urine Neg (NEGATIVE); Opiate Scree,Urine Neg (NEGATIVE)
[2025-06-21 13:59] LABS: Amphetamine Screen, Urine Pos (NEGATIVE); Benzodiazephine Screen, Urine Neg (NEGATIVE); Cocaine Screen, Urine Neg (NEGATIVE); Phencyclidine Screen, Urine Neg (NEGATIVE)
[2025-06-21] MEDS: FUROSEMIDE 40 MG/4 ML VIAL IV SCH (17:03)
[2025-06-21] MEDS: ATORVASTATIN 20 MG TAB PO SCH (22:15)
[2025-06-22] VITALS (8 sets, daily range): BP systolic 99–110; BP diastolic 65–77; PULSE 64–88; RESP 18–20; TEMP 97.3–98.1; O2SAT 93–99
[2025-06-22 06:42] LABS: Chloride 100 mmol/L (98-107); Sodium 139 mmol/L (136-145)
[2025-06-22 06:43] LABS: Anion Gap 10 (5-15); Calcium 9.1 mg/dL (8.7-10.4); Carbon Dioxide 29 mmol/L (20-31); Potassium 3.3 mmol/L (3.5-5.1)
[2025-06-22 06:48] LABS: BUN/Creatinine Ratio 16.2 (10.0-20.0); Blood Urea Nitrogen 33 mg/dL (9-23); Glucose 81 mg/dL (74-106)
[2025-06-22] MEDS: POTASSIUM CHL 20 Meq TABLET PO ONE (09:25)
--- NOTE | 2025-06-22 10:13 | DVHPN2 ---
Progress Note Date Seen: Jun 22, 2025 Resident Creating Document: EDELMIRA RILEY RESIDENT Medical Necessity Reason Pt with a Central, PICC or Fol: No Subjective Review of Systems This is a 59-year-old male with systolic congestive heart failure-EF 10% level is secondary to drug use, dilated cardiomyopathy, possible COPD, recent hernia surgery 05/2025 who presented to the ER with a chief complaint of lower extremity swelling and shortness of breaths for the past 2 weeks. Patient reports compliance to medication and has been doing Lasix 40 mg p.o. b.i.d. at home. He reports shortness of breaths on exertion, PND, orthopnea for the past 2 weeks, also reports lower extremity swelling for the past 2 days up to the level of thighs. He denies fevers/chills/nausea/vomiting/diarrhea. Denies chest pain or palpitations. Patient has ICD placed and follows Dr. Lake as primary care. Home medications: Entresto, Lasix 40 mg b.i.d., aspirin, Farxiga Social history: Reports using speed for the past 45 years, last use 1 month back. Reports using marijuana 06/21-Patient seen and examined at bedside. At bilateral basilar crackles and lower extremity swelling up to knee. 06/22 patient seen, continue Lasix b.i.d. 40 mg Objective vital signs Vital Sign Date Time Temp Pulse Resp B/P (MAP) Pulse Ox O2 Delivery O2 Flow Rate FiO2 06/22/25 09:19 66 107/77 06/22/25 09:00 97.8 18 96 97.8 06/21/25 20:00 Room Air* 0 21 Total Intake and Output 06/21/25 06/21/25 06/22/25 15:00 23:00 07:00 Intake Total 388 ml 2088 ml Output Total 600 ml Balance 388 ml 1488 ml medications Current Medications Medications Dose Ordered Sig/Silva Route Start Time Stop Time Status Last Admin Dose Admin Aspirin 81 mg DAILY PO 06/21/25 10:00 06/22/25 09:18 81 MG Sacubitril/ Valsartan 1 tab BID PO 06/21/25 10:00 06/22/25 09:19 1 TAB Empaglifozin 10 mg DAILY PO 06/21/25 10:00 06/22/25 09:18 10 MG Carvedilol 6.25 mg Q12HR PO 06/21/25 10:00 06/22/25 09:19 6.25 MG Atorvastatin Calcium 40 mg HS PO 06/21/25 22:00 06/21/25 22:15 40 MG Ondansetron HCl 4 mg Q4HP PRN IV 06/21/25 03:45 Acetaminophen 650 mg Q6HP PRN PO 06/21/25 03:45 Nitroglycerin 0.4 mg Q5MINP PRN SL 06/21/25 03:45 Morphine Sulfate 2 mg Q30M PRN IV 06/21/25 03:45 Pantoprazole Sodium 40 mg DAILY IV 06/21/25 10:00 06/22/25 09:18 40 MG Furosemide 40 mg BIDD IV 06/21/25 18:00 06/22/25 06:12 40 MG Examination Patient lying in bed, in no acute distress General: Well-built, afebrile, palor, mucosae are moist Cardiovascular: Regular S1 and S2. No murmurs, gallops or rubs. No JVD elevation. Bilateral 2+ pitting edema Respiratory: Bibasilar crackles heard on auscultation, on room air Abdomen: Soft, nontender, nondistended, normoactive bowel sounds, no rebound tenderness, no organomegaly, no masses Genitourinary: Deferred MSK/skin: Mobilizes 4 limbs. Skin is dry and warm Neurological: No motor, no sensitive deficits, normal speech. Pupils are isocoric and reactive. Psych/Mental Status: A/Ox3 laboratory and microbiology Laboratory Tests 06/22/25 05:33 06/21/25 00:59 Test 06/22/25 05:33 Range/Units Serum Glucose 81 74-106 mg/dL Labs and/or images reviewed: Labs reviewed by me, Image(s) reviewed by me Problem List/Assessment/Plan Problem List/Assessment/Plan OSMANI on CKD likely due to cardiorenal syndrome Acute on chronic congestive heart failure exacerbation-last EF 10%-NYHA class 3 NSTEMI Possible COPD Type 2 diabetes mellitus-new onset-A1c 6.7 CKD stage IIIB Recent inguinal hernia repair Secondary hyperparathyroidism Drug induced cardiomyopathy Polysubstance use Baseline GFR 44 BNP greater than 5000 Plan: Urine output increasing, BUN/creatinine trending down, GFR improving. Continue Lasix to 40 mg IV b.i.d. Continue GDMT as tolerated Fluid restriction, Strict I&Os, daily weight, follow up with urine analysis and urine electrolytes Renal and cardiac diet Diabetic education provided, lifestyle measures recommended Patient counseled regarding cessation of drug use We will continue to follow up Plan discussed with patient in which all questions have been answered Case discussed with Dr. Simpson Plan discussed with: Patient, Other (Nurse) My Orders My Orders Orders - EDELMIRA RILEY Procedure Category Date Status Time Communication Order ORDERS 06/21/25 Transmitted 11:19 Furosemide Injection PHA 06/21/25 In Process (Lasix Injection) 18:00 *Rn Procedures Analyst REFER 06/21/25 Transmitted Referral 11:21 Provide Diabetic ORDERS 06/21/25 Transmitted Education 11:21 EDELMIRA RILEY Jun 22, 2025 10:13
--- NOTE | 2025-06-22 16:24 | DVHPN2 ---
Subjective Seen in bed and feels less sob Reviewed: H&P, Labs Changes from previous H/P or p: No Changes Objective Vitals Vital Signs Date Time Temp Pulse Resp B/P (MAP) Pulse Ox O2 Delivery O2 Flow Rate FiO2 06/22/25 13:07 97.6 64 20 102/69 (80) 95 97.6 06/22/25 08:00 Room Air* 0 21 Intake/Output Intake and Output 06/22/25 07:00 Intake Total 2476 ml Output Total 600 ml Balance 1876 ml Intake Oral 2476 ml Output Urine Total 600 ml # Voids 6 # Bowel Movements 2 General Appearance: Alert, Oriented X3 Lungs: Clear to auscultation Cardiovascular: Regular rate, Normal S1, Normal S2 Abdomen: Normal bowel sounds Medications Current Medications Medications Dose Ordered Sig/Silva Route Start Time Stop Time Status Last Admin Dose Admin Aspirin 81 mg DAILY PO 06/21/25 10:00 06/22/25 09:18 81 MG Sacubitril/ Valsartan 1 tab BID PO 06/21/25 10:00 06/22/25 09:19 1 TAB Empaglifozin 10 mg DAILY PO 06/21/25 10:00 06/22/25 09:18 10 MG Carvedilol 6.25 mg Q12HR PO 06/21/25 10:00 06/22/25 09:19 6.25 MG Atorvastatin Calcium 40 mg HS PO 06/21/25 22:00 06/21/25 22:15 40 MG Ondansetron HCl 4 mg Q4HP PRN IV 06/21/25 03:45 Acetaminophen 650 mg Q6HP PRN PO 06/21/25 03:45 Nitroglycerin 0.4 mg Q5MINP PRN SL 06/21/25 03:45 Morphine Sulfate 2 mg Q30M PRN IV 06/21/25 03:45 Pantoprazole Sodium 40 mg DAILY IV 06/21/25 10:00 06/22/25 09:18 40 MG Furosemide 40 mg BIDD IV 06/21/25 18:00 06/22/25 06:12 40 MG Laboratory Results Laboratory Tests 06/21/25 00:59 06/22/25 05:33 Chemistry Test 06/22/25 05:33 Calcium Level 9.1 mg/dL (8.7-10.4) Magnesium Level 2.3 mg/dL (1.6-2.6) Urinalysis Test 06/21/25 13:34 06/21/25 13:35 Urine Color Colorless (Yellow) Urine Clarity Clear (Clear) Urine pH 7.0 (5.0-9.0) Urine Specific [place] 1.006 (1.001-1.035) Urine Protein Negative (Negative) Urine Ketones Negative (Negative) Urine Blood Negative /uL (Negative) Urine Nitrite Negative (Negative) Urine Bilirubin Negative (Negative) Urine Urobilinogen Normal mg/dL (Negative) Urine Leukocyte Esterase Negative /uL (Negative) Urine RBC <1 /hpf (0 - 3) Urine Microscopic WBC < 1 /HPF (0-3) Urine Squamous Epithelial Cells None seen /hpf (<5) Urine Bacteria None seen /hpf (None Seen) Urine Glucose 3+ mg/dL (Normal) H Urine Creatinine 10.97 mg/dL (30.0-125.0) L Urine Protein/Creatinine Ratio 0.55 Urine Sodium 115 mmol/L (40-220) Urine Total Protein < 6.0 mg/dL (1-14) Assessment/Plan Assessment/Plan Acute on chronic heart failure Acute on chronic kidney disease Elevated troponin, demand ischemia Continue IV lasix monitor kidney function nephrology on consult Plan discussed with: Patient Date of Service: Jun 22, 2025 Billing Provider: MADHAVI JO MD Common Visit Codes: [id number] INP/OBS CARE(HIGH) MADHAVI JO MD Jun 22, 2025 16:24
[2025-06-23 00:42] VITALS: BP 107/69; PULSE 84; RESP 16; TEMP 98.2; O2SAT 96
[2025-06-23 05:00] VITALS: BP 109/73; PULSE 84; RESP 18; TEMP 97.6; O2SAT 98
== END 2025-06-23 04:35 | disposition left against medical advice (07) | DRG 194 ==
LOC: ER 00:31 → OVERFLOW 03:37 → TELE-CENTR 05:22
PROVIDERS: ADMIT Hospitalist; ATTEND Hospitalist
DX: I13.0 Hypertensive heart and chronic kidney disease with heart failure and stage 1 through stage 4 chronic kidney disease, or unspecified chronic kidney disease (principal); I21.A1 Myocardial infarction type 2; I42.7 Cardiomyopathy due to drug and external agent; Z53.29 Procedure and treatment not carried out because of patient's decision for other reasons; N17.9 Acute kidney failure, unspecified; N25.81 Secondary hyperparathyroidism of renal origin; I50.23 Acute on chronic systolic (congestive) heart failure; F19.90 Other psychoactive substance use, unspecified, uncomplicated; J44.9 Chronic obstructive pulmonary disease, unspecified; N18.32 Chronic kidney disease, stage 3b; T50.995A Adverse effect of other drugs, medicaments and biological substances, initial encounter; E11.22 Type 2 diabetes mellitus with diabetic chronic kidney disease; Z79.82 Long term (current) use of aspirin; Z79.899 Other long term (current) drug therapy; Z87.891 Personal history of nicotine dependence; Y92.89 Other specified places as the place of occurrence of the external cause
CPT/HCPCS: 36415; 71045; 80048; 80307; 81001; 82306; 82570; 83036; 83735; 83880; 83970; 84156; 84300; 84443; 84484; 85025; 93005; 93970; 96374; 96375; G0378; J2470

== ENCOUNTER 2025-10-27 10:18 | Inpatient (IN) | payer MEDICAID ==
[~2025-10-27] VITALS: Ht 170.2 cm; Wt 83.4 kg
[~2025-10-27 10:18] MED LIST changes: -ATOR-507 PO; -FURO1TAB31 PO; -IPRIH INH
--- NOTE | 2025-10-27 10:40 | ECG ---
[facility] Test Date: 2025-10-27 Test Time: 10:32:21 Pat Name: VANDANA MCGEE Department: ED Room: 0207T Gender: M Marketing Services Specialist: PEDRO : 1965 Requested By: LISA ADHIKARI Order Number: [id number] Reading MD: Yasmany Ellington Measurements Intervals [place] Rate: 110 P: 82 DE: 160 QRS: -46 QRSD: 114 T: 92 QT: 344 QTc: 466 Interpretive Statements Sinus tachycardia Probable left atrial enlargement Incomplete left bundle branch block Inferior infarct, old Borderline ST elevation, anterolateral leads Electronically Signed On 10-30-2025 15:00:51 PST by Yasmany Ellington Please click the below link to view image of tracing.
--- NOTE | 2025-10-27 11:18 | DVH ---
CLINICAL HISTORY: LEFT LEG REDNESS AND SWELLING TECHNIQUE: Color and duplex doppler imagine of the left lower extremity veins was performed. Vessel compression if possible was also performed. COMPARISON: US BILAT LOWER DVT on DOS: 06/21/25 FINDINGS: Left common femoral vein: Normal compressibility and flow. Left superficial femoral vein: Normal compressibility and flow. Left popliteal vein: Normal compressibility and flow. Proximal calf veins are normally compressible. There is diffuse soft tissue edema. There are numerous left inguinal lymph nodes measuring up to 6 mm in short axis with fatty hilum. IMPRESSION: NO SONOGRAPHIC EVIDENCE FOR DEEP VENOUS THROMBOSIS IN THE LEFT LOWER EXTREMITY VEINS.
[2025-10-27 11:32] LABS: Hematocrit 42.5 % (41.0-53.0); Hemoglobin 13.8 g/dL (13.5-17.5); Mean Corpuscular Hemoglobin 30.7 pg (28.0-32.0); Mean Corpuscular Volume 94.2 fL (80.0-100.0); Nucleated Red Blood Cells % 0.1 %
[2025-10-27 11:44] LABS: Chloride 99 mmol/L (98-107); Potassium 3.9 mmol/L (3.5-5.1); Sodium 139 mmol/L (136-145)
[2025-10-27 11:45] LABS: Anion Gap 9 (5-15); Calcium 9.8 mg/dL (8.7-10.4); Carbon Dioxide 31 mmol/L (20-31)
--- NOTE | 2025-10-27 11:47 | ED.PDOC ---
Musculoskeletal HPI Comments This is a 60 year-old male who presents to the ED via wheelchair with a chief complaint of bilateral leg swelling. Patient reports taking Diuretics as prescribed. Upon ER evaluation, patients HR is 110 NSR. Patient reports quitting smoking more than 20 years ago. Patient has no further complaints. Patient denies any trauma or injury to the area, as well as, other associated symptoms of weakness, fatigue, dizziness, fever, or chills. Chief Complaint: Extremity Swelling Time Seen by MD: 11:39 Primary Care Provider: DESHAWN Reviewed Notes: Medications, Allergies Allergies: Coded Allergies: NO KNOWN ALLERGIES (Unverified , 06/15/15) Home Meds Reported Medications Furosemide (Furosemide) 40 Mg Tab, 1 TAB PO BID for 30 Days, #30 03/22/25 Sacubitril-Valsartan (Entresto 24-26 mg) 1 Tab Tab, 1 TAB PO DAILY for 33 Days, #30 03/20/25 Dapagliflozin Propanediol (Farxiga) 10 Mg Tab, 10 MG PO DAILY, TAB 03/20/25 Aspirin (Chewable Aspirin) 81 Mg Chw, 1 TAB PO DAILY 01/16/25 Information Source: Patient Mode of Arrival: Wheelchair Location: Bilateral Extremity Location: Leg Severity: Moderate Mechanism: Spontaneous Associated signs and symptoms: Leg pain Past Medical History PAST MEDICAL HISTORY: CHF, CKF, COPD Surgical History: Pacemaker Family History Family History: Reviewed,noncontributory to illness Social History Smoker: Quit Greater Than 1 Year, Cigarettes Alcohol: Denies ETOH Use Drugs: Marijuana Lives In: Home Constitutional: denies: chills, diaphoresis, fatigue, fever, malaise, sweats, weakness, others EENTM: denies: blurred vision, double vision, ear bleeding, ear discharge, ear drainage, ear pain, ear ringing, eye pain, eye redness, hearing loss, mouth pain, mouth swelling, nasal discharge, nose bleeding, nose congestion, nose pain, photophobia, tearing, throat pain, throat swelling, voice changes, others Respiratory: denies: cough, hemoptysis, orthopnea, SOB at rest, shortness of breath, SOB with excertion, stridor, wheezing, others Cardiovascular: denies: chest pain, dizzy spells, diaphoresis, Dyspnea on exertion, edema, irregular heart beat, left arm pain, lightheadedness, palpitations, PND, syncope, others Gastrointestinal: denies: abdomen distended, abdominal pain, blood streaked bowels, constipated, diarrhea, dysphagia, difficulty swallowing, hematemesis, melena, nausea, poor appetite, poor fluid intake, rectal bleeding, rectal pain, vomiting, others Genitourinary: denies: burning, dysuria, flank pain, frequency, hematuria, incontinence, penile discharge, penile sore, pain, testicle pain, testicle swelling, urgency, others Neurological: denies: dizziness, fainting, headache, left sided numbness, left sided weakness, numbness, paresthesia, pre-existing deficit, right sided numbness, right sided weakness, seizure, speech problems, tingling, tremors, weakness, others Musculoskeletal: reports: joint pain, joint swelling; denies: back pain, gout, muscle pain, muscle stiffness, neck pain, others Integumetry: denies: bruises, change in color, change in hair/nails, dryness, laceration, lesions, lumps, rash, wounds, others Allergic/Immunocompromised: denies: Difficulty Healing, Frequent Infections, Hives, Itching, others Hematologic/Lymphatic: denies: anemia, blood clots, easy bleeding, easy bruising, swollen glands, others Endocrine: denies: excessive hunger, excessive sweating, excessive thirst, excessive urination, flushing, intolerance to cold, intolerance to heat, unexplained weight gain, unexplained weight loss, others Psychiatric: denies: anxiety, bipolar disorder, depression, hopeless, panic disorder, schizophrenia, sleepless, suicidal, others All Other Systems: Reviewed and Negative Physical Exam General Appearance: Moderate Distress HEENT: Normal ENT Inspection, Pharynx Normal, TMs Normal Neck: Full Range of Motion, Non-Tender, Normal, Normal Inspection Respiratory: Chest Non-Tender, Lungs Clear, No Accessory Muscle Use, No Respiratory Distress, Normal Breath Sounds Cardiovascular: No Edema, No JVD, No Murmur, No Gallop, Normal Peripheral Pulses, Regular Rate/Rhythm Breast Exam: Deferred Gastrointestinal: No Organomegaly, Non Tender, No Pulsatile Mass, Normal Bowel Sounds, Soft Genitalia: Deferred Pelvic: Deferred Rectal: Deferred Extremities: No calf tenderness, Pedal edema, Swelling (Bilateral lower extremity) Musculoskeletal : Apperance: Normal Neurologic: Alert, No Motor Deficits, No Sensory Deficits Cerebellar Function: NOT DONE Reflexes: NOT DONE Skin: Wounds (Bilateral lower extremity) Lymphatic: No Adenopathy Was a procedure done? Was a procedure done?: No EKG EKG : Pulse Rate (adult): 110 Protection: Normal Cardiac Rhythm: ST Block: None Hypertrophy: LAE ST: Normal Differential Diagnosis EXT Differential Diagnosis: Cellulitis, Fracture, Sprain, Contusion, Arthritis Other Differential Diagnosis SEPSIS X-Ray, Labs, Meds, VS Vital Signs Date Time Temp Pulse Resp B/P (MAP) Pulse Ox O2 Delivery O2 Flow Rate FiO2 10/27/25 13:56 110 20 99 Room Air 10/27/25 13:56 97.3 110 20 117/88 (98) 99 97.3 10/27/25 11:47 110 10/27/25 10:32 110 10/27/25 10:20 97.6 117 18 119/83 99 97.6 Lab Test 10/27/25 12:47 10/27/25 11:06 Range/Units Lactic Acid Level 2.5 *H 0.4-2.0 mmol/L White Blood Count 13.3 H 4.4-10.8 10^3/uL Red Blood Count 4.51 4.5-5.90 10^6/uL Hemoglobin 13.8 13.5-17.5 g/dL Hematocrit 42.5 41.0-53.0 % Mean Corpuscular Volume 94.2 80.0-100.0 fL Mean Corpuscular Hemoglobin 30.7 28.0-32.0 pg Mean Corpuscular Hemoglobin Concent 32.5 32.0-36.0 g/dL Red Cell Distribution Width 17.5 H 11.8-14.3 % Platelet Count 326 140-450 10^3/uL Mean Platelet Volume 8.6 6.9-10.8 fL Neutrophils (%) (Auto) 86.9 H 37.0-80.0 % Lymphocytes (%) (Auto) 8.0 L 10.0-50.0 % Monocytes (%) (Auto) 4.7 0.0-12.0 % Eosinophils (%) (Auto) 0.1 0.0-7.0 % Basophils (%) (Auto) 0.3 0.0-2.0 % Neutrophils # (Auto) 11.5 H 1.6-8.6 10 ^3/uL Lymphocytes # (Auto) 1.1 0.4-5.4 10 ^3/uL Monocytes # (Auto) 0.6 0-1.3 10 ^3/uL Eosinophils # (Auto) 0 0-0.8 10 ^3/uL Basophils # (Auto) 0 0-0.2 10 ^3/uL Nucleated Red Blood Cells 0.1 % Erythrocyte Sedimentation Rate Pending Prothrombin Time Pending Prothrombin Time INR Pending Activated Partial Thromboplast Time Pending Sodium Level 139 136-145 mmol/L Potassium Level 3.9 3.5-5.1 mmol/L Chloride Level 99 98-107 mmol/L Carbon Dioxide Level 31 20-31 mmol/L Anion Gap 9 5-15 Blood Urea Nitrogen 28 H 9-23 mg/dL Creatinine 1.38 H 0.700-1.30 mg/dL Glomerular Filtration Rate Calc 59 >90 mL/min BUN/Creatinine Ratio 20.3 H 10.0-20.0 Serum Glucose 107 H 74-106 mg/dL Hemoglobin A1c Pending Calcium Level 9.8 8.7-10.4 mg/dL Phosphorus Level Pending Magnesium Level Pending C-Reactive Protein High Sensitivity Pending B-Type Natriuretic Peptide > 5000.00 0-100 pg/mL Triglycerides Level Pending Cholesterol Level Pending LDL Cholesterol Pending HDL Cholesterol Pending Lipase Pending Vitamin B12 Level Pending Vitamin D 25-Hydroxy Pending Thyroid Stimulating Hormone (TSH) Pending Current Medications Medications (Trade) Dose Ordered Sig/Silva Route Start Time Stop Time Status Last Admin Ceftriaxone Sodium 50 ml @ 100 mls/hr ONCE ONCE IV 10/27/25 11:45 10/27/25 12:14 DC 10/27/25 14:05 Sodium Chloride 1,000 ml @ 1,000 mls/hr Q1H ONCE IV 10/27/25 11:45 10/27/25 12:44 DC 10/27/25 14:05 Patient alert. Has swelling of bilateral lower extremity pain Vitals stable. Answering questions. Sepsis protocol. Establish intravenous access. Was given fluids. Was given Rocephin. Was given clindamycin. WBC elevated. Lactic acid elevated. Explained to the patient. Continue monitoring. Time of 1ST Reevaluation: 12:22 Reevaluation 1ST: Unchanged Patient Education/Counseling: Diagnosis, Treatment Family Education/Counseling: No Family Present Sepsis Sepsis Reasesment Focused Exam Orders: Laboratory Tests 10/27/25 12:47: Lactic Acid Level 2.5 Departure 1 Departure Time of Disposition: 14:19 Impression: Primary Impression: Sepsis, unspecified organism Qualified Codes: A41.9 - Sepsis, unspecified organism Additional Impression: Cellulitis Qualified Codes: L03.116 - Cellulitis of left lower limb Disposition: 09 ADMITTED INPATIENT Admit to: Med Surg Condition: Guarded Critical Care Note Critical Care Time?: No Stability Stability form required: No Heart Score Heart Score: Heart Score Response (Comments) Value History N/A 0 EKG N/A 0 Age N/A 0 Risk Factors N/A 0 Troponin N/A 0 Total 0 I personally scribed for LISA ADHIKARI MD ([email or web address]) on 10/27/25 at 11:47. Electronically submitted by Britt Garvey ([facility]). LISA ADHIKARI MD Oct 27, 2025 11:47
[2025-10-27 11:50] LABS: BUN/Creatinine Ratio 20.3 (10.0-20.0)
[2025-10-27 12:00] LABS: Blood Urea Nitrogen 28 mg/dL (9-23); Glucose 107 mg/dL (74-106)
[2025-10-27 13:33] LABS: Lactic Acid w/Reflex 2.5 mmol/L (0.4-2.0)
--- NOTE | 2025-10-27 13:49 | DVHHPRES ---
History of Present Illness Resident Creating Document: TREE LICONA History of Present Illness Gordon Mancia is a 60-year-old male patient who presents to the ED with chief complaint of chronic limb swelling of all his fall events, this has been occurring for five months, but 24 hours before his admission he presented inner thigh redness, warmth, he can not move his limb and he can not bear weight, prompting his visit to the ED. Associated patient also has dizziness, nausea, vomiting, constipation, abdominal distention and decreased appetite. Patient had recent admission with same complaint and left against medical advice on June 2025. Denies any other associated symptom. 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 Surgical history: 05/2025 hernia repair, 05/2023 SAUSAGE SMOKER-D (last interrogation seven month ago) Family history: Mother had heart disease (quadruple CABG) Social history: Lives in [place] with family (next of kin ). Ex tobacco abuse (40 pack-year history of smoking) quit in 2022, ex ethanol abuse quit in mid 20s. Continues consuming methamphetamine (last time consume was couple of days ago). Denies current tobacco, alcohol and other drug abuse. Allergies: Denies Home medication: Lasix, Entresto, aspirin and potassium. Patient does not tolerate GDM T due to hypotension. Patient seen and examined at bedside. Currently has no new complaints. Admitted to telemetry for further evaluation. Past Medical History Per HPI Past Surgical History Per HPI Family History Per HPI Past Social History Per HPI Review of Systems Review of Systems Per HPI Allergies: Coded Allergies: NO KNOWN ALLERGIES (Unverified , 06/15/15) Exam Vital Signs Vital Signs Date Time Temp Pulse Resp B/P (MAP) Pulse Ox O2 Delivery O2 Flow Rate FiO2 10/27/25 11:47 110 10/27/25 10:20 97.6 18 119/83 99 97.6 Exam Patient lying in bed, in no acute distress General: Lucid, afebrile, mucosae are moist Cardiovascular: Normal S1 and S2. Holosystolic murmur best heard in apex which radiates towards axilla intensity 3/6. No gallops or rubs Respiratory: Normal ventilation mechanics. Clear lung sounds on auscultation Abdomen: Distended, nontender, no organomegaly can not be evaluated due to abdominal distention, reduced bowel sounds MSK/skin: Mobilizes 4 limbs. Skin is dry and warm. Lymph nodes in left inguinal region. Erythematous plaque in left inner thigh with warmth on palpation. Anasarca with pitting edema in all limbs. Left ankle has erythema Neurological: Oriented in 3 spheres. No motor no sensitive deficits. Pupils are isocoric and reactive Labs/Xrays Labs Test 10/27/25 12:47 10/27/25 11:06 Range/Units Lactic Acid Level 2.5 *H 0.4-2.0 mmol/L White Blood Count 13.3 H 4.4-10.8 10^3/uL Red Blood Count 4.51 4.5-5.90 10^6/uL Hemoglobin 13.8 13.5-17.5 g/dL Hematocrit 42.5 41.0-53.0 % Mean Corpuscular Volume 94.2 80.0-100.0 fL Mean Corpuscular Hemoglobin 30.7 28.0-32.0 pg Mean Corpuscular Hemoglobin Concent 32.5 32.0-36.0 g/dL Red Cell Distribution Width 17.5 H 11.8-14.3 % Platelet Count 326 140-450 10^3/uL Mean Platelet Volume 8.6 6.9-10.8 fL Neutrophils (%) (Auto) 86.9 H 37.0-80.0 % Lymphocytes (%) (Auto) 8.0 L 10.0-50.0 % Monocytes (%) (Auto) 4.7 0.0-12.0 % Eosinophils (%) (Auto) 0.1 0.0-7.0 % Basophils (%) (Auto) 0.3 0.0-2.0 % Neutrophils # (Auto) 11.5 H 1.6-8.6 10 ^3/uL Lymphocytes # (Auto) 1.1 0.4-5.4 10 ^3/uL Monocytes # (Auto) 0.6 0-1.3 10 ^3/uL Eosinophils # (Auto) 0 0-0.8 10 ^3/uL Basophils # (Auto) 0 0-0.2 10 ^3/uL Nucleated Red Blood Cells 0.1 % Sodium Level 139 136-145 mmol/L Potassium Level 3.9 3.5-5.1 mmol/L Chloride Level 99 98-107 mmol/L Carbon Dioxide Level 31 20-31 mmol/L Anion Gap 9 5-15 Blood Urea Nitrogen 28 H 9-23 mg/dL Creatinine 1.38 H 0.700-1.30 mg/dL Glomerular Filtration Rate Calc 59 >90 mL/min BUN/Creatinine Ratio 20.3 H 10.0-20.0 Serum Glucose 107 H 74-106 mg/dL Calcium Level 9.8 8.7-10.4 mg/dL B-Type Natriuretic Peptide > 5000.00 0-100 pg/mL SEPSIS Sepsis Screen Date sepsis recognized/suspect: Oct 27, 2025 Time Sepsis recognized/suspect: 102 Recent Procedure: No On Antibiotic Therapy: No Respiratory Rate >20: No Heart Rate >90: Yes Temp<36 C (96.8 F) or >38.3 C: No SBP <90 or MAP <65 mmHG: No New Acute Mental Status Change: No Is the patient on CPAP, BIPAP,: No Physician Orders Lt Lower Dvt (10/27/25 10:23) Blood Culture (10/27/25 11:44) Sodium Chloride 0.9% (10/27/25 11:45) Vital Signs Date Time Temp Pulse Resp B/P (MAP) Pulse Ox O2 Delivery O2 Flow Rate FiO2 10/27/25 11:47 110 10/27/25 10:32 110 10/27/25 10:20 97.6 117 18 119/83 99 97.6 Laboratory Tests Test 10/27/25 11:06 10/27/25 12:47 White Blood Count 13.3 10^3/uL (4.4-10.8) H Lactic Acid Level 2.5 mmol/L (0.4-2.0) *H Assessment/Plan Assessment/Plan ASSESSMENT Sepsis secondary to cellulitis Rule out osteomyelitis OSMANI hemodynamically mediated (VMN) Acute on chronic systolic congestive heart failure (HFrEF, LVEF 10%) - status post SAUSAGE SMOKER D placement Hyperlacticacidemia Dilated cardiomyopathy probably secondary to methamphetamine abuse Pulmonary hypertension Moderate mitral regurgitation Ruled out DVT Methamphetamine abuse Hypertension Dyslipidemia Prediabetes Questionable liver cirrhosis Status post hernia repair PLAN Patient admitted to telemetry. Currently on IV antibiotics (clindamycin and ceftriaxone) Ordered left lower limb CT to rule out osteomyelitis Discontinued IV fluids. Patient needs IV diuretics due to anasarca. Indicated furosemide 40 mg IV t.i.d.. Continue Entresto. Once heart failure resolves try to had GDM T as tolerated (per patient his blood pressure drops). Counseled strongly on cessation of methamphetamine abuse. Ordered new echocardiogram Ordered pancultures Goals of care discussed with patient for over 18 minutes: Full code status Discussed plan with Dr. De La Garza, patient and nurses: Currently patient is on telemetry status. Indicated IV antibiotics, IV diuretics, and complementary workup. Patient has poor prognosis. Plan discussed with: Patient, Spouse, Other (Nurses) Date of Service: Oct 27, 2025 Billing Provider: GIANFRANCO DE LA GARZA MD Common Visit Codes: [id number] INP/OBS CARE (HIGH) Secondary Visit Codes: [id number] CARE PLAN 30 MINUTES TREE LICONA RESIDENT Oct 27, 2025 13:49
[2025-10-27] MEDS ORDERED: ONDANSETRON HCL 4 MG/2 ML VIAL IV PRN (14:00)
[2025-10-27] MEDS ORDERED: CLINDAMYCIN 300MG IV 50 ML IV SCH (14:00)
[2025-10-27] MEDS ORDERED: ACETAMINOPHEN 325 MG TAB PO PRN (14:00)
[2025-10-27] MEDS ORDERED: MORPHINE SULFATE INJ 2 MG/ml SYRG IV PRN (14:00)
[2025-10-27] MEDS: SODIUM CHLORIDE 0.9% 1,000 ML IV ONE ×2 (14:05)
[2025-10-27 14:26] LABS: Magnesium 2.1 mg/dL (1.6-2.6); Triglycerides 166.0 mg/dL (< 150)
[2025-10-27 14:27] LABS: Cholesterol 148.0 mg/dL (< 200)
[2025-10-27 14:28] LABS: HDL Cholesterol 33.0 mg/dL (40-59)
[2025-10-27 14:30] LABS: INR 1.25 (0.9-1.15); Partial Thromboplastin Time 30.2 SEC (24.5-34.5); Prothrombin Time 13.0 sec (9.3-11.8)
[2025-10-27] MEDS: CLINDAMYCIN 600MG IV 50 ML IV ONE (14:35)
[2025-10-27 14:56] LABS: Lipase 36.0 U/L (12-53)
--- NOTE | 2025-10-27 15:20 | DVH ---
CHEST RADIOGRAPH Indication: Sepsis Technique: Single frontal view of the chest was obtained Comparison: XY CHEST PORTABLE on DOS: 06/21/25, XY CHEST PORTABLE on DOS: 03/20/25, XY CHEST XRAY 1 VIEW on DOS: 02/06/25 FINDINGS: Lines and Tubes: Single chamber AICD pacemaker with pulse generator over the left chest. Lungs: No focal consolidation. Pleura: No effusion. No pneumothorax. Cardiomediastinal contours: Cardiomegaly Bones: No acute osseous abnormality. IMPRESSION: 1. Cardiomegaly. 2. Pacemaker in place unchanged
[2025-10-27 15:27] LABS: Urine Protein, UAD TRACE (Negative)
[2025-10-27 15:36] LABS: Opiate Scree,Urine Neg (NEGATIVE)
[2025-10-27 15:38] LABS: Amphetamine Screen, Urine Pos (NEGATIVE); Barbiturate Scree,Urine Neg (NEGATIVE); Benzodiazephine Screen, Urine Neg (NEGATIVE); Cannabinoid Screen, Urine Pos (NEGATIVE); Cocaine Screen, Urine Neg (NEGATIVE); Phencyclidine Screen, Urine Neg (NEGATIVE)
[2025-10-27 15:42] LABS: COVID19 ANTIGEN SOFIA FIA NEGATIVE (NEGATIVE)
[2025-10-27] MEDS: FUROSEMIDE 40 MG/4 ML VIAL IV ONE (15:59)
--- NOTE | 2025-10-27 16:34 | DVH ---
INDICATION: R/o osteomyelitis COMPARISON: US LT LOWER DVT on DOS: 10/27/25 TECHNIQUE: CT of the right was performed without contrast. Volume transverse images were obtained and reconstructed in multiple planes using bone and soft tissue algorithms. CONTRAST: None Radiation Dose Information: CT Dose: CTDI volume is 8.78 mGy. Dose-length product is 911.62 mGy*cm FINDINGS: Partially visualized ascites in the pelvis. Diffuse bladder wall thickening. Diffuse body wall anasarca and edema extending into the left lower extremity. Soft tissue edema is most pronounced overlying the knee anteriorly. Radiopaque foreign body. No soft tissue gas. No acute fracture. No destructive changes in the visualized left lower extremity bones. IMPRESSION: Diffuse soft tissue swelling in the left lower extremity could be related edema. Correlate for superimposed infectin /cellulitis. No soft tissue gas. No definite osseous destructive changes. However, early acute osteomyelitis is occult on CT. Recommend MRI for further evaluation if indicated. All CT scans at this medical facility are performed using dose modulation techniques as appropriate to a performed exam including the following: Automated exposure control was utilized; adjustment of the MA and/or KV according to patient size; and use of iterative reconstruction technique.
[2025-10-27 17:00] VITALS: BP 114/89; PULSE 104; RESP 17; TEMP 98; O2SAT 94
[2025-10-27 20:00] VITALS: PULSE 103
[2025-10-27 21:00] VITALS: BP 117/93; PULSE 105; RESP 18; TEMP 97.8; O2SAT 94
[2025-10-27] MEDS: CLINDAMYCIN 300MG IV 50 ML IV SCH (21:17)
[2025-10-28] VITALS (7 sets, daily range): BP systolic 102–126; BP diastolic 69–94; PULSE 50–110; RESP 16–18; TEMP 97.5–98.2; O2SAT 93–99
[2025-10-28 02:44] LABS: Hematocrit 43.2 % (41.0-53.0); Hemoglobin 14.2 g/dL (13.5-17.5); Mean Corpuscular Hemoglobin 30.8 pg (28.0-32.0); Mean Corpuscular Volume 94.0 fL (80.0-100.0); Nucleated Red Blood Cells % 0.1 %
[2025-10-28 03:13] LABS: Alanine Aminotransferase 16 U/L (7-40); Albumin 3.5 g/dL (3.2-4.8); Anion Gap 9 (5-15); BUN/Creatinine Ratio 21.2 (10.0-20.0); Blood Urea Nitrogen 22 mg/dL (9-23); Calcium 9.3 mg/dL (8.7-10.4); Carbon Dioxide 27 mmol/L (20-31); Chloride 101 mmol/L (98-107); Sodium 137 mmol/L (136-145); Total Protein 6.3 g/dL (5.7-8.2)
[2025-10-28 03:14] LABS: Alkaline Phosphatase 141 U/L (46-116); Bilirubin, Total 1.4 mg/dL (0.2-1.0); Glucose 107 mg/dL (74-106); Potassium 3.4 mmol/L (3.5-5.1)
[2025-10-28] MEDS: FUROSEMIDE 40 MG/4 ML VIAL IV SCH (06:00)
[2025-10-28] MEDS: ENOXAPARIN SOD 40 MG/0.4 ML SYRINGE SC SCH (10:31)
[2025-10-28] MEDS: SACUBITRIL-VALSARTAN 24mg/26mg TAB PO SCH (10:59)
--- NOTE | 2025-10-28 12:21 | DVHPN2 ---
Subjective The patient is seen and examined at bedside. Very tired and sleepy today. Reviewed: Care Plan, H&P, Labs, Medications, Previous Orders, Radiology Changes from previous H/P or p: No Changes Objective Vitals Vital Signs Date Time Temp Pulse Resp B/P (MAP) Pulse Ox O2 Delivery O2 Flow Rate FiO2 10/28/25 08:00 50 93 Room Air* 0 21 10/28/25 06:00 120/87 10/28/25 05:00 98.0 18 98.0 Intake/Output Intake and Output 10/28/25 07:00 Intake Total 1900 ml Output Total 600 ml Balance 1300 ml Intake Oral 800 ml IV Total 1100 ml Output Urine Total 600 ml General Appearance: Alert, Cooperative HEENT: Atraumatic, PERRLA, EOMI, Mucous membr. moist/pink Neck: Supple Lungs: Clear to auscultation, Normal air movement Cardiovascular: Regular rate, Normal S1, Normal S2, No murmurs, Gallops, Rubs Abdomen: Normal bowel sounds, Soft, No tenderness Neuro: Cranial nerves 3-12 NL Medications Current Medications Medications Dose Ordered Sig/Silva Route Start Time Stop Time Status Last Admin Dose Admin Acetaminophen 325 mg Q4HP PRN PO 10/27/25 14:00 Ondansetron HCl 4 mg Q4HP PRN IV 10/27/25 14:00 Morphine Sulfate 2 mg Q4HPRN PRN IV 10/27/25 14:00 Enoxaparin Sodium 40 mg DAILY SC 10/28/25 10:00 10/28/25 10:31 40 MG Ceftriaxone Sodium 50 ml @ 100 mls/hr DAILY@09 IV 10/28/25 09:00 10/28/25 10:34 100 MLS/HR Clindamycin Phosphate 50 ml @ 50 mls/hr Q8HR IV 10/27/25 22:00 10/28/25 06:30 50 MLS/HR Furosemide 40 mg TID@0600,1200,1800 IV 10/28/25 06:00 Sacubitril/ Valsartan 1 tab BID PO 10/28/25 10:00 10/28/25 10:59 1 TAB Laboratory Results Laboratory Tests 10/28/25 02:06 Chemistry Test 10/28/25 02:06 Albumin 3.5 g/dL (3.2-4.8) Calcium Level 9.3 mg/dL (8.7-10.4) Total Protein 6.3 g/dL (5.7-8.2) LFT Test 10/28/25 02:06 Alanine Aminotransferase (ALT) 16 U/L (7-40) Alkaline Phosphatase 141 U/L (46-116) H Aspartate Amino Transferase (AST) 34 U/L (13-40) Total Bilirubin 1.4 mg/dL (0.2-1.0) H Urinalysis Test 10/27/25 14:09 Urine Color Light-yellow (Yellow) Urine Clarity Clear (Clear) Urine pH 6.0 (5.0-9.0) Urine Specific [place] 1.009 (1.001-1.035) Urine Protein Trace (Negative) H Urine Ketones Negative (Negative) Urine Blood Negative /uL (Negative) Urine Nitrite Negative (Negative) Urine Bilirubin Negative (Negative) Urine Urobilinogen Normal mg/dL (Negative) Urine Leukocyte Esterase Negative /uL (Negative) Urine RBC 1 /hpf (0 - 3) Urine Microscopic WBC < 1 /HPF (0-3) Urine Squamous Epithelial Cells Few /hpf (<5) Urine Bacteria None seen /hpf (None Seen) Urine Hyaline Casts Few /lpf (0 - 2) Urine Glucose Normal mg/dL (Normal) Microbiology Microbiology Date/Time Source Procedure Growth Status 10/27/25 14:09 Voided Urine Urine Culture - Preliminary No growth Resulted Labs and/or images reviewed: Labs reviewed by me Assessment/Plan Assessment/Plan Sepsis secondary to cellulitis Rule out osteomyelitis OSMANI hemodynamically mediated (VMN) Acute on chronic systolic congestive heart failure (HFrEF, LVEF 10%) - status post STOPER D placement Hyperlacticacidemia Dilated cardiomyopathy probably secondary to methamphetamine abuse Pulmonary hypertension Moderate mitral regurgitation Ruled out DVT Methamphetamine abuse Hypertension Dyslipidemia Prediabetes Questionable liver cirrhosis Status post hernia repair PLAN Continuing current management. Continuing with IV antibiotic clindamycin and ceftriaxone. We will follow up with CT scan of lower extremity Continuing with Lasix Continue Entresto. Once heart failure resolves try to had GDM T as tolerated (per patient his blood pressure drops). Counseled strongly on cessation of methamphetamine abuse. Ordered new echocardiogram Ordered pancultures This medical document was created using an electronic medical record system with [employer] direct computerized dictation system. Although this document has been carefully reviewed, there may still be some phonetic and typographical errors. These areas are purely typographical due to imperfections of the software programs, and do not reflect any compromise in the patient's medical care. Plan discussed with: Patient, Other (RN) Date of Service: Oct 28, 2025 Billing Provider: KASSANDRA ALMODOVAR MD Common Visit Codes: [id number] INP/OBS CARE(HIGH) KASSANDRA ALMODOVAR MD Oct 28, 2025 12:21
[2025-10-28] MEDS: SODIUM CHLORIDE 0.9% 500 ML IV ONE (19:09)
[2025-10-28] MEDS: SOD CHL 0.45% WITH 20MEQ KCL 1,000 ML IV SCH (19:09)
[2025-10-28] MEDS: guaiFENesin-DM 100/10mg/5ml SYR PO PRN (21:41)
[2025-10-29] VITALS (8 sets, daily range): BP systolic 110–125; BP diastolic 88–99; PULSE 54–115; RESP 18–20; TEMP 95.6–98.3; O2SAT 97–99
[2025-10-29 06:19] LABS: Hematocrit 42.4 % (41.0-53.0); Hemoglobin 14.1 g/dL (13.5-17.5); Mean Corpuscular Hemoglobin 31.3 pg (28.0-32.0); Mean Corpuscular Volume 93.9 fL (80.0-100.0); Nucleated Red Blood Cells % 0.2 %
[2025-10-29 06:37] LABS: Alanine Aminotransferase 18 U/L (7-40); Albumin 3.5 g/dL (3.2-4.8); Anion Gap 8 (5-15); BUN/Creatinine Ratio 20.2 (10.0-20.0); Blood Urea Nitrogen 21 mg/dL (9-23); Calcium 9.4 mg/dL (8.7-10.4); Carbon Dioxide 28 mmol/L (20-31); Chloride 102 mmol/L (98-107); Potassium 3.6 mmol/L (3.5-5.1); Sodium 138 mmol/L (136-145); Total Protein 6.5 g/dL (5.7-8.2)
[2025-10-29 06:45] LABS: Alkaline Phosphatase 153 U/L (46-116); Bilirubin, Total 1.4 mg/dL (0.2-1.0); Glucose 127 mg/dL (74-106)
--- NOTE | 2025-10-29 11:58 | DVHPN2 ---
Subjective The patient is seen and examined at bedside. The patient feel better today. Reviewed: Care Plan, H&P, Labs, Medications, Previous Orders, Radiology Changes from previous H/P or p: No Changes Objective Vitals Vital Signs Date Time Temp Pulse Resp B/P (MAP) Pulse Ox O2 Delivery O2 Flow Rate FiO2 10/29/25 08:37 95.6 107 18 112/92 (99) 97 95.6 10/29/25 08:00 Room Air* 0 21 Intake/Output Intake and Output 10/29/25 07:00 Intake Total 890 ml Output Total 200 ml Balance 690 ml Intake Oral 890 ml Output Urine Total 200 ml # Voids 5 # Bowel Movements 1 General Appearance: Alert, Cooperative HEENT: Atraumatic, PERRLA, EOMI, Mucous membr. moist/pink Neck: Supple Lungs: Clear to auscultation, Normal air movement Cardiovascular: Regular rate, Normal S1, Normal S2, No murmurs, Gallops, Rubs Abdomen: Normal bowel sounds, Soft, No tenderness Neuro: Cranial nerves 3-12 NL Medications Current Medications Medications Dose Ordered Sig/Silva Route Start Time Stop Time Status Last Admin Dose Admin Acetaminophen 325 mg Q4HP PRN PO 10/27/25 14:00 Ondansetron HCl 4 mg Q4HP PRN IV 10/27/25 14:00 Morphine Sulfate 2 mg Q4HPRN PRN IV 10/27/25 14:00 Enoxaparin Sodium 40 mg DAILY SC 10/28/25 10:00 10/29/25 09:17 40 MG Ceftriaxone Sodium 50 ml @ 100 mls/hr DAILY@09 IV 10/28/25 09:00 10/29/25 09:18 100 MLS/HR Clindamycin Phosphate 50 ml @ 50 mls/hr Q8HR IV 10/27/25 22:00 10/29/25 05:38 50 MLS/HR Furosemide 40 mg TID@0600,1200,1800 IV 10/28/25 06:00 10/29/25 06:56 40 MG Sacubitril/ Valsartan 1 tab BID PO 10/28/25 10:00 10/28/25 21:43 1 TAB Guaifenesin/ Dextromethorphan 10 ml Q6HP PRN PO 10/28/25 21:00 10/28/25 21:41 10 ML Laboratory Results Laboratory Tests 10/29/25 06:03 Chemistry Test 10/29/25 06:03 Albumin 3.5 g/dL (3.2-4.8) Calcium Level 9.4 mg/dL (8.7-10.4) Total Protein 6.5 g/dL (5.7-8.2) LFT Test 10/29/25 06:03 Alanine Aminotransferase (ALT) 18 U/L (7-40) Alkaline Phosphatase 153 U/L (46-116) H Aspartate Amino Transferase (AST) 45 U/L (13-40) H Total Bilirubin 1.4 mg/dL (0.2-1.0) H Urinalysis Test 10/27/25 14:09 Urine Color Light-yellow (Yellow) Urine Clarity Clear (Clear) Urine pH 6.0 (5.0-9.0) Urine Specific [place] 1.009 (1.001-1.035) Urine Protein Trace (Negative) H Urine Ketones Negative (Negative) Urine Blood Negative /uL (Negative) Urine Nitrite Negative (Negative) Urine Bilirubin Negative (Negative) Urine Urobilinogen Normal mg/dL (Negative) Urine Leukocyte Esterase Negative /uL (Negative) Urine RBC 1 /hpf (0 - 3) Urine Microscopic WBC < 1 /HPF (0-3) Urine Squamous Epithelial Cells Few /hpf (<5) Urine Bacteria None seen /hpf (None Seen) Urine Hyaline Casts Few /lpf (0 - 2) Urine Glucose Normal mg/dL (Normal) Microbiology Microbiology Date/Time Source Procedure Growth Status 10/27/25 14:47 Nose MRSA Screen - Final Methicillin Resistant S.aureus Complete 10/27/25 14:09 Voided Urine Urine Culture - Preliminary Resulted 10/27/25 12:53 Blood Blood Culture - Preliminary NO GROWTH AFTER 24 HOURS OF INCUBATION. Resulted Labs and/or images reviewed: Labs reviewed by me Assessment/Plan Assessment/Plan Sepsis secondary to cellulitis Rule out osteomyelitis OSMANI hemodynamically mediated (VMN) Acute on chronic systolic congestive heart failure (HFrEF, LVEF 10%) - status post UPHOLSTERER ASSEMBLY LINE D placement Hyperlacticacidemia Dilated cardiomyopathy probably secondary to methamphetamine abuse Pulmonary hypertension Moderate mitral regurgitation Ruled out DVT Methamphetamine abuse Hypertension Dyslipidemia Prediabetes Questionable liver cirrhosis Status post hernia repair PLAN Continuing current management. Continuing with IV antibiotic clindamycin and ceftriaxone. We will follow up with CT scan of lower extremity Continuing with Lasix Continue Entresto. Once heart failure resolves try to had GDM T as tolerated (per patient his blood pressure drops). Counseled on cessation of methamphetamine abuse. Ordered new echocardiogram Ordered pancultures Wound care consult This medical document was created using an electronic medical record system with [employer] direct computerized dictation system. Although this document has been carefully reviewed, there may still be some phonetic and typographical errors. These areas are purely typographical due to imperfections of the software programs, and do not reflect any compromise in the patient's medical care. Plan discussed with: Patient My Orders Orders - KASSANDRA ALMODOVAR MD Procedure Category Date Status Time * Dietary Consult CONS 10/28/25 Transmitted 15:36 Apply: LEO 10/29/25 In Process 07:32 Date of Service: Oct 29, 2025 Billing Provider: KASSANDRA ALMODOVAR MD Common Visit Codes: [id number] INP/OBS CARE(HIGH) KASSANDRA ALMODOVAR MD Oct 29, 2025 11:58
--- NOTE | 2025-10-29 13:54 | DVHSR ---
APPROVED REPORT EXAM: Two-dimensional and M-mode echocardiogram with Doppler and color Doppler. Blood Pressure: 115/76 mmHg INDICATION Heart Failure RISK FACTORS Height: 5'7", Weight: 188 DIMENSIONS LVDd 6.8 (3.8-5.7cm) LA (2D) 4.8 (1.9-4.0cm) Aortic Root 3.2 (2.0-3.7cm) LVDs 6.6 (2.5-4.0cm) LA (MM) (1.9-4.0cm) Aortic Cusp Exc 2.0 (1.5-2.0cm) EF (%) 6.0 (55-70%) Rt. Atrium 5.1 (1.9-4.0cm) Asc. Aorta 3.2 cm IVSd 0.8 (0.7-1.1cm) RV (D) 5.5 (1.8-2.4cm) PWd 1.0 (0.7-1.1cm) Mitral Valve Mitral Mitral Stenosis E/A ratio 0.0 2D MVA cm2 Aortic Valve Aortic Valve Aortic Stenosis V1 0.77m/s AO Mean GR. 2mmHg V2 0.76m/s AO Peak GR. 2mmHg LVOT Diameter 2.4 (1.8-2.4cm) Doppler SIERRA 4.58cm2 Pulmonic Valve V2 0.70m/s Tricuspid Valve TR Velocity 2.78m/s RVSP 39mmHg Conclusion lvfe 10-15% severe end stage HF dilated LV RV dysfunction pacing lead in RV biatrial enlargemernt moderate mitral regurg severe tricuspid regurg trivial pericardial effusion significant L pleural effusion noted
[2025-10-30] VITALS (8 sets, daily range): BP systolic 106–127; BP diastolic 86–95; PULSE 56–114; RESP 18–19; TEMP 97.7–98.4; O2SAT 95–98
[2025-10-30 07:06] LABS: Hematocrit 43.6 % (41.0-53.0); Hemoglobin 14.5 g/dL (13.5-17.5); Mean Corpuscular Hemoglobin 31.2 pg (28.0-32.0); Mean Corpuscular Volume 94.0 fL (80.0-100.0); Nucleated Red Blood Cells % 0.1 %
[2025-10-30 07:12] LABS: Anion Gap 10 (5-15); Calcium 9.6 mg/dL (8.7-10.4); Carbon Dioxide 31 mmol/L (20-31); Chloride 101 mmol/L (98-107); Potassium 3.6 mmol/L (3.5-5.1); Sodium 142 mmol/L (136-145)
[2025-10-30 07:18] LABS: BUN/Creatinine Ratio 17.4 (10.0-20.0); Blood Urea Nitrogen 20 mg/dL (9-23); Glucose 106 mg/dL (74-106)
--- NOTE | 2025-10-30 13:10 | DVHPN2 ---
Subjective Patient continues to report having pain to left thigh. Reviewed: Care Plan, H&P, Labs, Medications, Previous Orders, Radiology Changes from previous H/P or p: No Changes Objective Vitals Vital Signs Date Time Temp Pulse Resp B/P (MAP) Pulse Ox O2 Delivery O2 Flow Rate FiO2 10/30/25 11:28 123/84 10/30/25 09:00 98.0 56 18 95 98.0 10/30/25 08:00 Room Air* 0 21 Intake/Output Intake and Output 10/30/25 07:00 Intake Total 400 ml Output Total 200 ml Balance 200 ml Intake Oral 350 ml IV Total 50 ml Output Urine Total 200 ml General Appearance: Alert, Oriented X3, Cooperative, mild distress HEENT: Atraumatic, PERRLA, EOMI, Mucous membr. moist/pink Neck: Supple Lungs: Clear to auscultation, Normal air movement Cardiovascular: Regular rate, Normal S1, Normal S2, No murmurs, Gallops, Rubs Abdomen: Normal bowel sounds, Soft, No tenderness Neuro: Normal speech, Cranial nerves 3-12 NL Skin: Dry, Intact, Other (Erythema to left lower extremity) Psych/Mental Status: Mental status NL, Mood NL Medications Current Medications Medications Dose Ordered Sig/Silva Route Start Time Stop Time Status Last Admin Dose Admin Acetaminophen 325 mg Q4HP PRN PO 10/27/25 14:00 Ondansetron HCl 4 mg Q4HP PRN IV 10/27/25 14:00 Morphine Sulfate 2 mg Q4HPRN PRN IV 10/27/25 14:00 Enoxaparin Sodium 40 mg DAILY SC 10/28/25 10:00 10/30/25 11:12 40 MG Ceftriaxone Sodium 50 ml @ 100 mls/hr DAILY@09 IV 10/28/25 09:00 10/30/25 11:11 100 MLS/HR Clindamycin Phosphate 50 ml @ 50 mls/hr Q8HR IV 10/27/25 22:00 10/30/25 06:25 50 MLS/HR Furosemide 40 mg TID@0600,1200,1800 IV 10/28/25 06:00 10/30/25 11:28 40 MG Sacubitril/ Valsartan 1 tab BID PO 10/28/25 10:00 10/30/25 11:11 1 TAB Guaifenesin/ Dextromethorphan 10 ml Q6HP PRN PO 10/28/25 21:00 10/28/25 21:41 10 ML Laboratory Results Laboratory Tests 10/30/25 06:06 Chemistry Test 10/30/25 06:06 Calcium Level 9.6 mg/dL (8.7-10.4) Urinalysis Test 10/27/25 14:09 Urine Color Light-yellow (Yellow) Urine Clarity Clear (Clear) Urine pH 6.0 (5.0-9.0) Urine Specific [place] 1.009 (1.001-1.035) Urine Protein Trace (Negative) H Urine Ketones Negative (Negative) Urine Blood Negative /uL (Negative) Urine Nitrite Negative (Negative) Urine Bilirubin Negative (Negative) Urine Urobilinogen Normal mg/dL (Negative) Urine Leukocyte Esterase Negative /uL (Negative) Urine RBC 1 /hpf (0 - 3) Urine Microscopic WBC < 1 /HPF (0-3) Urine Squamous Epithelial Cells Few /hpf (<5) Urine Bacteria None seen /hpf (None Seen) Urine Hyaline Casts Few /lpf (0 - 2) Urine Glucose Normal mg/dL (Normal) Microbiology Microbiology Date/Time Source Procedure Growth Status 10/27/25 14:47 Nose MRSA Screen - Final Methicillin Resistant S.aureus Complete 10/27/25 14:09 Voided Urine Urine Culture - Final Complete 10/27/25 12:53 Blood Blood Culture - Preliminary NO GROWTH AFTER 48 HOURS OF INCUBATION. Resulted Labs and/or images reviewed: Labs reviewed by me, Image(s) reviewed by me Assessment/Plan Assessment/Plan Impression: -sepsis -cellulitis to left lower extremity -acute on chronic systolic heart failure, with ejection fraction 10% -methamphetamine abuse -acute kidney injury, vasomotor nephropathy Plan: -continue IV Rocephin and clindamycin -continue IV diuresis -potassium replacement -fluid restriction -repeat labs in a.m. -reassess for discharge in a.m. -Lifestyle modification education: 10 minutes spent with the patient discussing the need to abstain from drug use. Total time spent with patient discussing and formulating plan of care: 35 minutes. This medical document was created using an electronic medical record system with [employer] system. Although this document has been carefully reviewed, there may still be some phonetic and typographical errors. These areas are purely typographical due to imperfections of the software programs, and do not reflect any compromise in the patient's medical care. Plan discussed with: Patient, Other (RN) My Orders Orders - CONY GUPTA NP Procedure Category Date Status Time Mupirocin 2% Oint PHA 10/30/25 Transmitted Mrsa Nares (Bactroban 22:00 Potassium Effervesent PHA 10/30/25 Transmitted Tab (Klor-Con/Ef) 13:00 Date of Service: Oct 30, 2025 Billing Provider: CONY GUPTA NP Common Visit Codes: [id number] INP/OBS CARE(HIGH) Secondary Visit Codes: [id number] CARE PLAN 30 MINUTES CONY GUPTA NP Oct 30, 2025 13:10
[2025-10-30] MEDS: METOPROLOL SUCCINATE XL 50 MG TAB PO ONE (15:26)
[2025-10-30] MEDS: POTASSIUM EFFERVESENT TAB 25 MEQ PO ONE (15:27)
[2025-10-30] MEDS: MUPIROCIN 2% OINT 15gm or 22gm FOR MRSA NARES EACHNOSTRI SCH (21:33)
[2025-10-31 01:00] VITALS: BP 131/94; PULSE 54; RESP 17; TEMP 96.9; O2SAT 98
[2025-10-31 05:00] VITALS: BP 137/85; PULSE 61; RESP 18; TEMP 97; O2SAT 96
[2025-10-31 08:00] VITALS: PULSE 104; PULSE 68; RESP 18; O2SAT 96
[2025-10-31 09:00] VITALS: BP 123/101; PULSE 90; RESP 18; TEMP 98.3; O2SAT 98
[2025-10-31] MEDS: METOPROLOL SUCCINATE XL 50 MG TAB PO SCH (09:50)
[2025-10-31] MEDS ORDERED: POTA8TAB38 PO (11:18)
[2025-10-31] MEDS ORDERED: ASPI1CHW5 PO (11:18)
[2025-10-31] MEDS ORDERED: FURO40TA4 PO (11:18)
[2025-10-31] MEDS ORDERED: CLIN1CAP70 PO (11:18)
[2025-10-31] MEDS ORDERED: METO25TA36 PO (11:21)
--- NOTE | 2025-10-31 11:25 | DVHDS2 ---
Discharge Summary Date of Admission Oct 27, 2025 at 13:50 Date of Discharge: Oct 31, 2025 Admitting Diagnosis Sepsis secondary to cellulitis Labs/Diagnostic Data: Laboratory Results Test 10/30/25 06:06 10/29/25 06:03 10/27/25 15:17 10/27/25 14:47 White Blood Count 10.1 10^3/uL (4.4-10.8) Red Blood Count 4.64 10^6/uL (4.5-5.90) Hemoglobin 14.5 g/dL (13.5-17.5) Hematocrit 43.6 % (41.0-53.0) Mean Corpuscular Volume 94.0 fL (80.0-100.0) Mean Corpuscular Hemoglobin 31.2 pg (28.0-32.0) Mean Corpuscular Hemoglobin Concent 33.2 g/dL (32.0-36.0) Red Cell Distribution Width 17.1 % (11.8-14.3) Platelet Count 324 10^3/uL (140-450) Mean Platelet Volume 8.8 fL (6.9-10.8) Neutrophils (%) (Auto) 81.2 % (37.0-80.0) Lymphocytes (%) (Auto) 10.7 % (10.0-50.0) Monocytes (%) (Auto) 6.7 % (0.0-12.0) Eosinophils (%) (Auto) 0.9 % (0.0-7.0) Basophils (%) (Auto) 0.5 % (0.0-2.0) Neutrophils # (Auto) 8.2 10 ^3/uL (1.6-8.6) Lymphocytes # (Auto) 1.1 10 ^3/uL (0.4-5.4) Monocytes # (Auto) 0.7 10 ^3/uL (0-1.3) Eosinophils # (Auto) 0.1 10 ^3/uL (0-0.8) Basophils # (Auto) 0 10 ^3/uL (0-0.2) Nucleated Red Blood Cells 0.1 % Sodium Level 142 mmol/L (136-145) Potassium Level 3.6 mmol/L (3.5-5.1) Chloride Level 101 mmol/L (98-107) Carbon Dioxide Level 31 mmol/L (20-31) Anion Gap 10 (5-15) Blood Urea Nitrogen 20 mg/dL (9-23) Creatinine 1.15 mg/dL (0.700-1.30) Glomerular Filtration Rate Calc 74 mL/min (>90) BUN/Creatinine Ratio 17.4 (10.0-20.0) Serum Glucose 106 mg/dL (74-106) Calcium Level 9.6 mg/dL (8.7-10.4) Total Bilirubin 1.4 mg/dL (0.2-1.0) Aspartate Amino Transferase (AST) 45 U/L (13-40) Alanine Aminotransferase (ALT) 18 U/L (7-40) Alkaline Phosphatase 153 U/L (46-116) Total Protein 6.5 g/dL (5.7-8.2) Albumin 3.5 g/dL (3.2-4.8) Lactic Acid Level 2.0 mmol/L (0.4-2.0) Influenza Type A Antigen Negative (Negative) Influenza Type B Antigen Negative (Negative) SARS-CoV-2 Antigen (Rapid) Negative (NEGATIVE) Test 10/27/25 14:09 10/27/25 11:06 Urine Color Light-yellow (Yellow) Urine Clarity Clear (Clear) Urine pH 6.0 (5.0-9.0) Urine Specific [place] 1.009 (1.001-1.035) Urine Protein Trace (Negative) Urine Ketones Negative (Negative) Urine Blood Negative /uL (Negative) Urine Nitrite Negative (Negative) Urine Bilirubin Negative (Negative) Urine Urobilinogen Normal mg/dL (Negative) Urine Leukocyte Esterase Negative /uL (Negative) Urine RBC 1 /hpf (0 - 3) Urine Microscopic WBC < 1 /HPF (0-3) Urine Squamous Epithelial Cells Few /hpf (<5) Urine Bacteria None seen /hpf (None Seen) Urine Hyaline Casts Few /lpf (0 - 2) Urine Glucose Normal mg/dL (Normal) Urine Opiates Screen Neg (NEGATIVE) Urine Fentanyl Screen Neg (NEGATIVE) Urine Barbiturates Screen Neg (NEGATIVE) Urine Phencyclidine Screen Neg (NEGATIVE) Urine Amphetamines Screen Pos (NEGATIVE) Urine Benzodiazepines Screen Neg (NEGATIVE) Urine Cocaine Screen Neg (NEGATIVE) Urine Cannabinoids Screen Pos (NEGATIVE) Erythrocyte Sedimentation Rate 10 mm/hr (0-20) Prothrombin Time 13.0 sec (9.3-11.8) Prothrombin Time INR 1.25 (0.9-1.15) Activated Partial Thromboplast Time 30.2 SEC (24.5-34.5) Hemoglobin A1c < 3.8 % A1C (<5.7) Phosphorus Level 3.0 mg/dL (2.4-5.1) Magnesium Level 2.1 mg/dL (1.6-2.6) C-Reactive Protein High Sensitivity 11.16 mg/dL (<1.0) B-Type Natriuretic Peptide > 5000.00 pg/mL (0-100) Triglycerides Level 166 mg/dL (< 150) Cholesterol Level 148 mg/dL (< 200) LDL Cholesterol 99 mg/dL (< 100) HDL Cholesterol 33 mg/dL (40-59) Lipase 36 U/L (12-53) Vitamin B12 Level 1005 pg/mL (211-911) Vitamin D 25-Hydroxy 42.4 ng/mL (30.0-100) Thyroid Stimulating Hormone (TSH) 1.65 uIU/mL (0.55-4.78) Other Laboratory Tests 10/30/25 06:06 Brief Hx & Hospital Course: History of Present Illness Gordon Mancia is a 60-year-old male patient who presents to the ED with chief complaint of chronic limb swelling of all his fall events, this has been occurring for five months, but 24 hours before his admission he presented inner thigh redness, warmth, he can not move his limb and he can not bear weight, prompting his visit to the ED. Associated patient also has dizziness, nausea, vomiting, constipation, abdominal distention and decreased appetite. Patient had recent admission with same complaint and left against medical advice on June 2025. Denies any other associated symptom. Course of hospitalization: Patient was treated with IV antibiotic therapy including Rocephin and clindamycin. The patient was given aggressive IV diuresis with Lasix. CT scan of the left lower extremity reveals noted cellulitis, no signs of osteomyelitis. Patient's white blood cell count is improving. Erythema is also improving left lower extremity. Patient was agreeable to be discharged home now that he is more euvolemic. He was noted to be tachycardic while in the hospital, for which I started Toprol-XL. Patient does have an issue with hypotension, for which full guideline directed medical therapy has not been implemented. Patient will continue with Entresto, as well as being prescribed Toprol-XL 25 mg p.o. daily. Patient will also be prescribed Lasix, potassium supplementation, as well as clindamycin 300 mg p.o. t.i.d. for additional seven days. 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 Patient was also found to be positive for methamphetamines, for which lifestyle modification education was provided with the patient He is agreeable with discharge plan. All questions answered. Physical examination General: Alert and Oriented x3. No acute distress. Well-nourished. Eyes: EOMI. Anicteric. HENT: Moist mucous membranes. Lungs: Clear to auscultation bilaterally. No accessory muscle use. Cardiovascular: Regular rate and rhythm. No murmur. No JVD. Abdomen: Soft, non-tender and non-distended. No palpable masses. Extremities: No edema. Non-tender. Skin: No rashes or lesions. Warm. Neurologic: No focal neurological deficits. CN II-XII grossly intact, but not individually tested. Psychiatric: Cooperative. Appropriate mood and affect. Total time spent with patient discussing and formulating plan of care: 35 minutes. This medical document was created using an electronic medical record system with [employer] dictation system. Although this document has been carefully reviewed, there may still be some phonetic and typographical errors. These areas are purely typographical due to imperfections of the software programs, and do not reflect any compromise in the patient's medical care. Condition at Discharge: Guarded Final Diagnosis/Problems List Sepsis secondary to cellulitis to left lower extremity -sepsis -cellulitis to left lower extremity -acute on chronic systolic heart failure, with ejection fraction 10% -methamphetamine abuse -acute kidney injury, vasomotor nephropathy Discharge Disposition: Home Discharge Instruct/Medications Diet: Cardiac 2g Na,low cholest Diet comment: Fluid restriction of 1400 mL per day Activity: No Restrictions, As Tolerated Follow Up/Referral: Follow up with PCP in one week Medications: Toprol-XL 25 mg p.o. daily Clindamycin 300 mg p.o. 3 times a day for seven days Klor-Con 8 mEq use p.o. daily Continue home medications including Entresto, aspirin Scheduled Aspirin (Chewable Aspirin), 1 TAB PO DAILY Clindamycin Hcl (Clindamycin Hcl), 1 CAP PO TID Furosemide (Furosemide), 1 TAB PO BID Metoprolol Succinate (Toprol Xl), 1 TAB PO DAILY Potassium Chloride (Klor-Con 8), 8 MEQ PO DAILY Sacubitril-Valsartan (Entresto 24-26 mg), 1 TAB PO DAILY, (Reported) Discontinued Medications Dapagliflozin Propanediol (Farxiga), 10 MG PO DAILY, (Reported) 36 Discharge Statement: "Patient was advised to return to the ER or call 911 if any headaches, dizziness, shortness of breath, chest pain, abdominal pain, bleeding, fevers, or worsening of medical condition. Patient was counseled about treatment plan, medications, possible side effects, patientverbalized understanding. All questions were answered to the best of my ability. This discharge took greater then 30 minutes in planning, reviewing documentation, counseling the patient, and discussing with other team members." ASSESSMENT ASSESSMENT Assessment Sepsis secondary to cellulitis to left lower extremity Date of Service: Oct 31, 2025 Billing Provider: CONY GUPTA NP Common Visit Codes: 67486-IEK/OBS DISCH DAY >30min CONY GUPTA NP Oct 31, 2025 11:25
== END 2025-10-31 13:10 | disposition home or self-care (01) | DRG 720 ==
LOC: ER 10:18 → OVERFLOW 13:50 → TELE-WESTW 10-28 17:54 → TELE-CENTR 10-29 15:49
PROVIDERS: ADMIT Nurse Practitioner Acute Care; ATTEND Nurse Practitioner Acute Care
DX: A41.9 Sepsis, unspecified organism (principal); N17.0 Acute kidney failure with tubular necrosis; I50.23 Acute on chronic systolic (congestive) heart failure; L03.116 Cellulitis of left lower limb; J44.9 Chronic obstructive pulmonary disease, unspecified; I34.0 Nonrheumatic mitral (valve) insufficiency; F15.10 Other stimulant abuse, uncomplicated; I13.0 Hypertensive heart and chronic kidney disease with heart failure and stage 1 through stage 4 chronic kidney disease, or unspecified chronic kidney disease; N18.9 Chronic kidney disease, unspecified; I27.20 Pulmonary hypertension, unspecified; Z20.822 Contact with and (suspected) exposure to COVID-19; I42.0 Dilated cardiomyopathy; E78.5 Hyperlipidemia, unspecified; R73.03 Prediabetes; Z87.891 Personal history of nicotine dependence; Z82.49 Family history of ischemic heart disease and other diseases of the circulatory system
CPT/HCPCS: 36415; 71045; 73700; 80048; 80053; 80061; 80307; 81001; 82306; 82607; 83036; 83605; 83690; 83735; 83880; 84100; 84443; 85025; 85610; 85652; 85730; 86141; 87040; 87081; 87086; 87426; 87804; 93005; 93306; 93971; 96365; 96375; G0378; J3490